=== PATIENT | female | born 1945 | race Caucasian/White ===

== ENCOUNTER 2023-09-28 08:37 | Outpatient (CLI) | payer MEDICARE, SELFPAY ==
--- NOTE | ~2023-09-28 | MM_ITS ---
EXAMINATION: MM screening rodrigo BI w yvonne HISTORY: Screening TECHNIQUE: Craniocaudal and mediolateral oblique 3-D tomosynthesis images were obtained and synthetic 2-D images were generated. CAD analysis was submitted and interpreted. COMPARISON: Comparison to multiple prior studies sequentially, with oldest reviewed study dated 12/2015. BREAST PARENCHYMAL COMPOSITION: Not dense: There are scattered areas of fibroglandular density. FINDINGS: The left breast is stable without evidence for malignancy. There is focal asymmetry in the subareolar aspect of the right breast. IMPRESSION: 1. New focal right breast asymmetry, subareolar location. 2. Additional mammographic views and possible breast ultrasound are recommended. BI-RADS Category 0: Incomplete: Needs additional imaging evaluation. Reviewed, dictated and finalized at location A. IMPRESSION: 1. New focal right breast asymmetry, subareolar location. 2. Additional mammographic views and possible breast ultrasound are recommended . BI-RADS Category 0: Incomplete: Needs additional imaging evaluation.
== END 2023-09-28 08:38 | disposition home or self-care (01) ==
PROVIDERS: PCP Family Medicine; Visit Provider Family Medicine
DX: Z12.31 Encounter for screening mammogram for malignant neoplasm of breast (principal); R92.8 Other abnormal and inconclusive findings on diagnostic imaging of breast
CPT/HCPCS: 77063; 77067

== ENCOUNTER 2024-03-15 07:12 | Outpatient (CLI) | payer MEDICARE, SELFPAY ==
--- NOTE | ~2024-03-15 | DEXA_ITS ---
Bone Density Report Name: EMMANUEL VAZQUEZ Age: 78 Sex: Female Ethnicity: White Date of : 1945 Indication: osteopenia; height loss; hysterectomy; Referring Provider: ROSALES, SOM Bone Study: Bone densitometry was performed. Exam Date: March 15, 2024 Accession number: [id number] Bone Density: Region BMD T-score Z-score Classification AP Spine(L1-L4) 1.090 0.4 3.0 Normal Femoral Neck (Left) 0.632 -2.0 0.3 Osteopenia Total Hip (Left) 0.714 -1.9 0.1 Osteopenia Femoral Neck (Right) 0.715 -1.2 1.0 Osteopenia Total Hip (Right) 0.750 -1.6 0.4 Osteopenia Total Hip Mean 0.732 -1.8 0.3 Osteopenia World Health Organization criteria for BMD impression classify patients as: Normal (T-score at or above -1.0), Osteopenia (T-score between -1.0 and -2.5), or Osteoporosis (T-score at or below -2.5). 10-year Fracture Risk(1): Major Osteoporotic Fracture 14% Hip Fracture 3.9% Reported Risk Factors: [place] (), Neck BMD=0.632, BMI=28.7 (1) FRAX(R) Version 3.08. Fracture probability calculated for an untreated patient. Fracture probability may be lower if the patient has received treatment. Previous Exams: Region Exam Age BMD T-score BMD Change BMD Change Date g/cm2 vs Baseline vs Previous Total Hip(Left) 03/15/2024 78 0.714 -1.9 0.006 (0.8%) 0.006 (0.8%) 07/17/2015 69 0.708 -1.9 Total Hip(Right) 03/15/2024 78 0.750 -1.6 0.010 (1.4%) 0.010 (1.4%) 07/17/2015 69 0.740 -1.7 *Denotes significance at 95% confidence level, LSC for Total Hip = 0.027 g/cm2 Clinical Information Provided by Patient: Has used the following medications: Vitamin D, Calcium Has the following medical conditions: Hysterectomy Patient maximum height was 64 Drinks caffeinated beverages Onset of menses at age 10.5 Number of children 2 Impression: The patient has low bone mass, based on the Left Femoral Neck T-score. The patient has an estimated ten-year risk of hip fracture of 3.9% and an estimated ten-year risk of major fracture of 14%, based on the WHO FRAX algorithm. No significant bone loss was observed. Discussion: BONE DENSITY IS LOW AT ONE OR MORE SKELETAL SITES. THE PATIENT'S BMD AND CLINICAL RISK FACTORS CONTRIBUTE TO THIS PATIENT'S INCREASED RISK OF FRACTURE. This patient's lowest T-score is low at one or more skeletal sites. It meets the World Health Organization's (WHO) criteria for ?low bone mass? (T-score between -1.0 and -2.5). The patient's 10-year
== END 2024-03-15 07:13 | disposition home or self-care (01) ==
LOC: ANHIMG 07:14
PROVIDERS: PCP Nurse Practitioner Family; Visit Provider Family Medicine
DX: Z78.0 Asymptomatic menopausal state (principal); M85.852 Other specified disorders of bone density and structure, left thigh; M85.851 Other specified disorders of bone density and structure, right thigh
CPT/HCPCS: 77080

== ENCOUNTER 2024-11-25 11:00 | Outpatient (CLI) | payer MEDICARE, SELFPAY ==
--- NOTE | ~2024-11-25 | MM_ITS ---
EXAMINATION: MM screening rodrigo BI w yvonne HISTORY: Screening TECHNIQUE: Craniocaudal and mediolateral oblique 3-D tomosynthesis images were obtained and synthetic 2-D images were generated. CAD analysis was submitted and interpreted. COMPARISON: Comparison to multiple prior studies sequentially, with oldest reviewed study dated 12/2015. BREAST PARENCHYMAL COMPOSITION: Not dense: There are scattered areas of fibroglandular density. FINDINGS: There is no evidence of suspicious mass, calcification, or architectural distortion to sugg est malignancy in either breast. There has been no suspicious interval change. IMPRESSION: 1. No mammographic evidence of malignancy. 2. Recommend routine screening mammography in one year. BI-RADS Category 1: Negative Reviewed, dictated and finalized at location B.
--- OUTSIDE RECORDS SUMMARY | 2024-11-25 11:05 | XMS_ITS | Data Portability ---
Author Organization [facility], Main Office Address [address] [place] [address] Assessment Encounter Date Assessment Date Assessment LastModified by Organization Details LastModified Time 03/01/2024 03/01/2024 I have reconciled the patient's medications post their discharge from inpatient facility. Not available 03/01/2024 14:22:26 Plan of Treatment Reminders Order Date Submit Date Provider Last Modified By Organization Details Last Modified Time Details Appointments None recorded. Lab drug of abuse panel, urine [email or web address] [place] [address] (Lab), [address] [place], [address], 4 15:04:59 lipid panel, serum 2022 023 [facility] (Lab), [address] [place], [address], 3 20:54:24 hepatic function panel, serum 2022 023 [facility] (Lab), [address] [place], [address], 3 20:54:29 vitamin D, 25-hydroxy, total, serum 2022 023 [facility] (Lab), [address] [place], [address], 3 01:16:07 CBC w/ auto diff 2022 023 [facility] (Lab), [address] [place], [address], 3 18:55:16 BMP, serum or plasma 2022 023 [facility] (Lab), [address] [place], [address], 3 20:54:34 Referral None recorded. Procedures None recorded. Surgeries None recorded. Imaging DEXA - *Please call pt to schedule* [address] ([facility]), [address] [place], [address], 4 08:52:41 MAMMO, screening, digital, bilateral [address], [address], [place], [address], 4 10:31:21 DEXA [address], [address], [place], [address], 3 16:29:45 Medication Orders nitroglycer in 0.4 mg sublingual tablet 2023 024 [facility] #[id number], [address], [place], [address], 4 14:27:59 carvedilol 25 mg tablet 2023 024 [facility] #[id number], [address], [place], [address], 4 10:43:45 alprazolam 0.5 mg tablet 2023 024 [facility], [address] [facility], [place], [address], 4 14:13:12 polyethylen e glycol 3350 17 gram/dose oral powder 2022 023 [facility], [address] [facility] [place], [address], 10:57:15 Patient TargetsNo targets recorded. Patient Instructions Encounter Date Encounter Id Patient Instructions Last Modified By Organization Details Last Modified Time 05/12/2023 [id number] dementia rating scale-2* [email or web address] Not available 05/12/2023 18:07:18 multi-dimensiona l health assessment questionnaire* Not available 05/12/2023 18:07:22 Personalized Hea lt Plan and Screening Recommendations Advance Directives - Do you have one? Advance Directives - Do we have your advance directive on file in your health record? Primary Prevention/Interven tion (prevents or decreases the chance of common diseases from occurring) Smoking Risk: Alcohol Misuse Screening: Weight: Physical activity: Nutrition: Fall Risk (screened today): Low Vaccines Pneumococcal: Ordered Recommended today Recommended today, but you have declined No further needed Influenza: Chronic Disease Risks Stroke: I have no recommendations Act ronak diagnosis, Continue current treatment plan Heart Attack: I have no recommendations Act ronak diagnosis, Continue current treatment plan Clogging of the Arteries: I have no recommendations Act ronak diagnosis, Continue current treatment plan Diabetes: Active diagnosis, Continue current treatment plan Secondary Prevention/Interven tion (detects treatable diseases before they may cause symptoms, disability, or ) Breast Cancer Screening with mammogram: Your next mammogram: Ordered Cervical/Uterine/Ov ravin Cancer Screening: No screening necessary Osteoporosis Screening: Your next DEXA in: Ordered Date Screening Last Performed: Colon Cancer Screening: No screening necessary Date Screening Last Performed: Eye Disease Screening: Dementia Risk: Depression Screening: Active diagnosis, Continue current treatment plan [email or web address] Not available 05/12/2023 10:59:43 03/01/2024 [id number] Thank you for yo ur visit to our office today. We would like to request that you reach out to your referring or previous provider and request that they send us a Summary of Care in electronic form, so that we may have it on file in your medical record. At your visit, we had the medical records we needed to provide you with the best possible care; however, for insurance purposes, an electronic Summary of Care is beneficial. Thank you for your assistance in obtaining this information and we look forward to providing continued care to you. Please review your medication list from the Summary of Care for this visit. If there are any differences from what you are currently taking at home, please call us to discuss. Not available 03/01/2024 14:22:26 Homebound Status : {{Patient has an inability to leave the home without a taxing effort and assistance from another person Does not meet homebound status}} Required Home Health Services: {{none group home, physical therapy, occupational therapy group home, physical therapy group home}} Durable Medical Equipment needed: {{cane walker walke r with seat manual wheelchair bedside commode oxygen}} Billing Guidelines CPT code 03806- Transitional Care Management services with moderate medical decision complexity (wvfr-px-vwgb visit within 14 days of discharge). CPT code 53735- Transitional Care Management services with high medical decision complexity (qnyb-ry-pbmj visit within 7 days of discharge). Not available 03/01/2024 14:22:26 Reason for Referral None Reported. Results Created Date Observation Date Name Description Value Unit Range Abnormal Flag Note LastModifiedBy Organization Detail LastModifiedTime 05/11/2005/11/2022 VITAM IN D 25-HY DROXY vd25oh 66.6 NG/mL 30-100 Vitam in D Statu s: Defic ient: <20 ng/mL Insuf ficie nt: 20-29 ng/mL Suffi cient : 30-10 0 ng/mL Not Available [facility] (Lab) [address] [place], [address], 05/11/2022 21:19:26 05/11/2005/11/2022 HEPAT IC/LI HOPE PANEL alkaline phosphatase 92 U/L 38-126 Not Available [facility] (Lab) [address] [place], [address], 05/11/2022 20:53:03 05/11/2005/11/2022 HEPAT IC/LI HOPE PANEL alanine aminotransfe rase 20 U/L 0-35 Not Available [facility] (Lab) [address] [place], [address], 05/11/2022 20:53:03 05/11/20 22 05/11/2022 HEPAT IC/LI HOPE PANEL aspartate aminotransfe rase 28 U/L 15-37 Not Available [facility] (Lab) [address] [place], [address], 05/11/2022 20:53:03 05/11/20 22 05/11/2022 HEPAT IC/LI HOPE PANEL bilirubin, total 0.70 mg/dL 0.20-1 .30 Not Available [facility] (Lab) [address] [place], [address], 05/11/2022 20:53:03 05/11/20 22 05/11/2022 HEPAT IC/LI HOPE PANEL bilirubin, conjugated (direct) 0.00 mg/dL 0.00-0 .30 Not Available [facility] (Lab) [address] [place], [address], 05/11/2022 20:53:03 05/11/20 22 05/11/2022 HEPAT IC/LI HOPE PANEL biliurubin,u ncong. (indirect) 0.60 mg/dL 0.00-1 .1 Not Available [facility] (Lab) [address] [place], [address], 05/11/2022 20:53:03 05/11/20 22 05/11/2022 HEPAT IC/LI HOPE PANEL total protein 7.3 g/dL 6.3-8. 2 Not Available [facility] (Lab) [address] [place], [address], 05/11/2022 20:53:03 05/11/20 22 05/11/2022 HEPAT IC/LI HOPE PANEL albumin 4.4 g/dL 3.0-4. 4 Not Available [facility] (Lab) [address] [place], [address], 05/11/2022 20:53:03 05/11/2005/11/2022 HEPAT IC/LI HOPE PANEL globulin 2.9 g/dL 2.6-4. 2 Not Available [facility] (Lab) [address] [place], [address], 05/11/2022 20:53:03 05/11/20 22 05/11/2022 HEPAT IC/LI HOPE PANEL A/G ratio 1.5 ratio 1.0-2. 0 Not Available [facility] (Lab) [address] [place], [address], 05/11/2022 20:53:03 05/11/20 22 05/11/2022 LIPID PANEL cholesterol 178 mg/dL 140-19 9 NIH YVETTE NSUS RECOM MENDA TION FOR RUPA STERO L: ADULT CHILD LOW RISK: <200 <170 BORDE RLINE : <200- 239 ----- HIGH RISK: >240 >200 Not Available [facility] (Lab) [address] [place], [address], 05/11/2022 20:52:15 05/11/20 22 05/11/2022 LIPID PANEL triglyceride s 153 mg/dL 0-150 high NIH YVETTE NSUS REPOR T RECOM MENDA TION FOR TRIGL YCERI KYLAH: ADULT CHILD LOW RISK: <150 ----- BODER LINE: 150-1 99 ----- HIGH RISK: >200 ----- Not Available [facility] (Lab) [address] [place], [address], 05/11/2022 20:52:15 05/11/2005/11/2022 LIPID PANEL HDL cholesterol 60 mg/dL 40- Not Available [facility] (Lab) [address] [place], [address], 05/11/2022 20:52:15 10/31/20 22 05/11/2022 LIPID PANEL LDL cholesterol, calculated 87 mg/dL 0-130 NIH YVETTE NSUS REPOR T RECOM MENDA TIONS FOR LDL: ADULT CHILD LOW RISK <130 <110 (OPTI MAL LDL) <100 ----- BORDE RLINE : 130-1 59 ----- HIGH RISK: >160 >130 A TRIGL YCERI DE RESUL T >400 INVAL IDATE S THE CALCU LATIO N FOR LDL FRACT IONAT ION - THE LDL RESUL T WILL NOT BE REPOR LANCE. Not Available [facility] (Lab) [address] [place], [address], 05/11/2022 20:52:15 05/11/2005/11/2022 BASIC METAB OLIC PANEL sodium 139 mmol/ L 137-14 5 Not Available [facility] (Lab) [address] [place], [address], 05/11/2022 20:52:13 05/11/2005/11/2022 BASIC METAB OLIC PANEL potassium 4.2 mmol/ L 3.5-5. 1 Not Available [facility] (Lab) [address] [place], [address], 05/11/2022 20:52:13 05/11/20 22 05/11/2022 BASIC METAB OLIC PANEL chloride 101 mmol/ L 98-107 Not Available [facility] (Lab) [address] [place], [address], 05/11/2022 20:52:13 05/11/2005/11/2022 BASIC METAB OLIC PANEL carbon dioxide 29 mmol/ L 22-30 Not Available [facility] (Lab) [address] [place], [address], 05/11/2022 20:52:13 05/11/20 22 05/11/2022 BASIC METAB OLIC PANEL anion gap 13.2 mmol/ L 14-22 low Not Available [facility] (Lab) [address] [place], [address], 05/11/2022 20:52:13 05/11/20 22 05/11/2022 BASIC METAB OLIC PANEL glucose 101 mg/dL 70-99 high Not Available [facility] (Lab) [address] [place], [address], 05/11/2022 20:52:13 05/11/20 22 05/11/2022 BASIC METAB OLIC PANEL BUN 17 mg/dL 8-19 Not Available [facility] (Lab) [address] [place], [address], 05/11/2022 20:52:13 05/11/20 22 05/11/2022 BASIC METAB OLIC PANEL creatinine 0.71 mg/dL 0.66-1 .25 Not Available [facility] (Lab) [address] [place], [address], 05/11/2022 20:52:13 05/11/20 22 05/11/2022 BASIC METAB OLIC PANEL GFR >60 Refer ence Range : [place] [facility] GFR Healt hy Adult : >60 mL/mi n/1.7 3 m2 Chron ic Kidne y Disea se: 15-60 mL/mi n/1.7 3 m2 Kidne y Failu re: <15/m L/min /1.73 m2 www.n iddk. nih.g ov The MDRD study equat ion has not been valid ated in child yossi <18 years of age; pregn ant women ; the elder ly >85 years of age; or in some racia l or ethni c subgr oups, such as Hisnm nics. Outsi de the valid ated lupe eters , estim ated GFR is less accur ate, requi ring clini adalberto judgm ent on a case- by-ca se basis . Clini adalberto inter preta tion for other races and ages must be made by the clini teddy. The MDRD study equat ion has not been valid ated for the evalu ation of serum creat inine relat ed to nutri bhavik l statu s or medic ation usage . For perso ns <18 years of age, a pedia tric GFR calcu lator is avail able on the F websi te: https ://eamon parsons.o yolanda/filiberto ofess ional s/kdo qi/gf r_cal culat or Not Available [facility] (Lab) [address] [place], [address], 05/11/2022 20:52:13 05/11/2005/11/2022 BASIC METAB OLIC PANEL calcium 9.6 mg/dL 8.4-10 .2 Not Available [facility] (Lab) [address] [place], [address], 05/11/2022 20:52:13 05/11/20 22 05/11/2022 CBC/C OMPLE TE BLD COUNT W/DIF F white blood cells 6.3 x10'3 /uL 4.2-10 .8 Not Available [facility] (Lab) [address] [place], [address], 05/11/2022 19:17:40 05/11/20 22 05/11/2022 CBC/C OMPLE TE BLD COUNT W/DIF F red blood cells 4.24 x10'6 /uL 3.80-5 .20 Not Available [facility] (Lab) [address] [place], [address], 05/11/2022 19:17:40 05/11/20 22 05/11/2022 CBC/C OMPLE TE BLD COUNT W/DIF F hemoglobin 13.3 g/dL 12.0-1 5.6 Not Available [facility] (Lab) [address] [place], [address], 05/11/2022 19:17:40 05/11/20 22 05/11/2022 CBC/C OMPLE TE BLD COUNT W/DIF F hematocrit 40.3 % 35.7-4 5.7 Not Available [facility] (Lab) [address] [place], [address], 05/11/2022 19:17:40 05/11/2005/11/2022 CBC/C OMPLE TE BLD COUNT W/DIF F mean red cell volume 95.0 fL 82.0-9 9.0 Not Available [facility] (Lab) [address] [place], [address], 05/11/2022 19:17:40 05/11/20 22 05/11/2022 CBC/C OMPLE TE BLD COUNT W/DIF F mean red cell hemoglobin 31.4 pg 27.0-3 3.0 Not Available [facility] (Lab) [address] [place], [address], 05/11/2022 19:17:40 05/11/20 22 05/11/2022 CBC/C OMPLE TE BLD COUNT W/DIF F mean RBC HGB concentratio n 33.0 g/dL 31.0-3 6.0 Not Available [facility] (Lab) [address] [place], [address], 05/11/2022 19:17:40 05/11/20 22 05/11/2022 CBC/C OMPLE TE BLD COUNT W/DIF F red cell distribution width 13.1 % 11.8-1 5.5 Not Available [facility] (Lab) [address] [place], [address], 05/11/2022 19:17:40 05/11/20 22 05/11/2022 CBC/C OMPLE TE BLD COUNT W/DIF F platelets 244 x10'3 /uL 150-40 0 Not Available [facility] (Lab) [address] [place], [address], 05/11/2022 19:17:40 05/11/20 22 05/11/2022 CBC/C OMPLE TE BLD COUNT W/DIF F mean platelet volume 9.7 fL 9.0-12 .4 Not Available [facility] (Lab) [address] [place], [address], 05/11/2022 19:17:40 05/11/2005/11/2022 CBC/C OMPLE TE BLD COUNT W/DIF F neutrophils 51.0 % 39.0-7 2.0 Not Available [facility] (Lab) [address] [place], [address], 05/11/2022 19:17:40 05/11/20 22 05/11/2022 CBC/C OMPLE TE BLD COUNT W/DIF F lymphocytes 34.7 % 16.0-4 7.0 Not Available [facility] (Lab) [address] [place], [address], 05/11/2022 19:17:40 05/11/20 22 05/11/2022 CBC/C OMPLE TE BLD COUNT W/DIF F monocytes 10.0 % 5.0-12 .0 Not Available [facility] (Lab) [address] [place], [address], 05/11/2022 19:17:40 05/11/20 22 05/11/2022 CBC/C OMPLE TE BLD COUNT W/DIF F eosinophils 3.3 % 1.0-7. 0 Not Available [facility] (Lab) [address] [place], [address], 05/11/2022 19:17:40 05/11/20 22 05/11/2022 CBC/C OMPLE TE BLD COUNT W/DIF F basophils 0.8 % 0.0-2. 0 Not Available [facility] (Lab) [address] [place], [address], 05/11/2022 19:17:40 05/11/20 22 05/11/2022 CBC/C OMPLE TE BLD COUNT W/DIF F immature granulocytes 0.2 % 0.00-0 .50 Not Available [facility] (Lab) [address] [place], [address], 05/11/2022 19:17:40 05/11/2005/11/2022 CBC/C OMPLE TE BLD COUNT W/DIF F neutrophils, absolute count 3.22 x10'3 /uL 1.5-8. 0 Not Available [facility] (Lab) [address] [place], [address], 05/11/2022 19:17:40 05/11/20 22 05/11/2022 CBC/C OMPLE TE BLD COUNT W/DIF F lymphocytes, absolute count 2.19 x10'3 /uL 1.07-3 .43 Not Available [facility] (Lab) [address] [place], [address], 05/11/2022 19:17:40 05/11/20 22 05/11/2022 CBC/C OMPLE TE BLD COUNT W/DIF F monocytes, absolute count 0.63 x10'3 /uL 0.29-0 .99 Not Available [facility] (Lab) [address] [place], [address], 05/11/2022 19:17:40 05/11/20 22 05/11/2022 CBC/C OMPLE TE BLD COUNT W/DIF F eosinophils, absolute count 0.21 x10'3 /uL 0.02-0 .53 Not Available [facility] (Lab) [address] [place], [address], 05/11/2022 19:17:40 05/11/20 22 05/11/2022 CBC/C OMPLE TE BLD COUNT W/DIF F basophils, absolute count 0.05 x10'3 /uL 0.01-0 .08 Not Available [facility] (Lab) [address] [place], [address], 05/11/2022 19:17:40 10/3105/11/2022 CBC/C OMPLE TE BLD COUNT W/DIF F immature granulocytes ,absolute 0.01 x10'3 /uL 0.00-0 .05 Not Available [facility] (Lab) [address] [place], [address], 05/11/2022 19:17:40 05/11/20 22 05/11/2022 CBC/C OMPLE TE BLD COUNT W/DIF F nucleated red blood cells 0.0 % -0 Not Available [facility] (Lab) [address] [facility] [place], [address], 05/11/2022 19:17:40 05/11/2005/11/2022 CBC/C OMPLE TE BLD COUNT W/DIF F NRBC# 0.00 x10'3 /uL Not Available [facility] (Lab) [address] [place], [address], 05/11/2022 19:17:40 05/12/20 23 05/12/2023 CBC/C OMPLE TE BLD COUNT W/DIF F white blood cells 6.0 x10'3 /uL 4.2-10 .8 Not Available [facility] (Lab) [address] [place], [address], 05/12/2023 18:55:16 05/12/20 23 05/12/2023 CBC/C OMPLE TE BLD COUNT W/DIF F red blood cells 4.49 x10'6 /uL 3.80-5 .20 Not Available [facility] (Lab) [address] [place], [address], 05/12/2023 18:55:16 05/12/20 23 05/12/2023 CBC/C OMPLE TE BLD COUNT W/DIF F hemoglobin 14.0 g/dL 12.0-1 5.6 Not Available [facility] (Lab) [address] [place], [address], 05/12/2023 18:55:16 05/12/20 23 05/12/2023 CBC/C OMPLE TE BLD COUNT W/DIF F hematocrit 42.4 % 35.7-4 5.7 Not Available [facility] (Lab) [address] [place], [address], 05/12/2023 18:55:16 05/12/20 23 05/12/2023 CBC/C OMPLE TE BLD COUNT W/DIF F mean red cell volume 94.4 fL 82.0-9 9.0 Not Available [facility] (Lab) [address] [place], [address], 05/12/2023 18:55:16 05/12/20 23 05/12/2023 CBC/C OMPLE TE BLD COUNT W/DIF F mean red cell hemoglobin 31.2 pg 27.0-3 3.0 Not Available [facility] (Lab) [address] [place], [address], 05/12/2023 18:55:16 05/12/20 23 05/12/2023 CBC/C OMPLE TE BLD COUNT W/DIF F mean RBC HGB concentratio n 33.0 g/dL 31.0-3 6.0 Not Available [facility] (Lab) [address] [place], [address], 05/12/2023 18:55:16 05/12/20 23 05/12/2023 CBC/C OMPLE TE BLD COUNT W/DIF F red cell distribution width 12.7 % 11.8-1 5.5 Not Available [facility] (Lab) [address] [place], [address], 05/12/2023 18:55:16 05/12/20 23 05/12/2023 CBC/C OMPLE TE BLD COUNT W/DIF F platelets 263 x10'3 /uL 150-40 0 Not Available [facility] (Lab) [address] [place], [address], 05/12/2023 18:55:16 05/12/20 23 05/12/2023 CBC/C OMPLE TE BLD COUNT W/DIF F mean platelet volume 10.1 fL 9.0-12 .4 Not Available [facility] (Lab) [address] [facility] [place], [address], 05/12/2023 18:55:16 05/12/20 23 05/12/2023 CBC/C OMPLE TE BLD COUNT W/DIF F neutrophils 55.7 % 39.0-7 2.0 Not Available [facility] (Lab) [address] [place], [address], 05/12/2023 18:55:16 05/12/20 23 05/12/2023 CBC/C OMPLE TE BLD COUNT W/DIF F lymphocytes 30.6 % 16.0-4 7.0 Not Available [facility] (Lab) [address] [place], [address], 05/12/2023 18:55:16 05/12/2005/12/2023 CBC/C OMPLE TE BLD COUNT W/DIF F monocytes 10.1 % 5.0-12 .0 Not Available [facility] (Lab) [address] [place], [address], 05/12/2023 18:55:16 05/12/2005/12/2023 CBC/C OMPLE TE BLD COUNT W/DIF F eosinophils 2.7 % 1.0-7. 0 Not Available [facility] (Lab) [address] [place], [address], 05/12/2023 18:55:16 05/12/20 23 05/12/2023 CBC/C OMPLE TE BLD COUNT W/DIF F basophils 0.7 % 0.0-2. 0 Not Available [facility] (Lab) [address] [place], [address], 05/12/2023 18:55:16 05/12/20 23 05/12/2023 CBC/C OMPLE TE BLD COUNT W/DIF F immature granulocytes 0.2 % 0.00-0 .50 Not Available [facility] (Lab) [address] [place], [address], 05/12/2023 18:55:16 05/12/20 23 05/12/2023 CBC/C OMPLE TE BLD COUNT W/DIF F neutrophils, absolute count 3.32 x10'3 /uL 1.5-8. 0 Not Available [facility] (Lab) [address] [place], [address], 05/12/2023 18:55:16 05/12/20 23 05/12/2023 CBC/C OMPLE TE BLD COUNT W/DIF F lymphocytes, absolute count 1.82 x10'3 /uL 1.07-3 .43 Not Available [facility] (Lab) [address] [place], [address], 05/12/2023 18:55:16 05/12/2005/12/2023 CBC/C OMPLE TE BLD COUNT W/DIF F monocytes, absolute count 0.60 x10'3 /uL 0.29-0 .99 Not Available [facility] (Lab) [address] [place], [address], 05/12/2023 18:55:16 05/12/2005/12/2023 CBC/C OMPLE TE BLD COUNT W/DIF F eosinophils, absolute count 0.16 x10'3 /uL 0.02-0 .53 Not Available [facility] (Lab) [address] [place], [address], 05/12/2023 18:55:16 05/12/20 23 05/12/2023 CBC/C OMPLE TE BLD COUNT W/DIF F basophils, absolute count 0.04 x10'3 /uL 0.01-0 .08 Not Available [facility] (Lab) [address] [place], [address], 05/12/2023 18:55:16 05/12/2005/12/2023 CBC/C OMPLE TE BLD COUNT W/DIF F immature granulocytes ,absolute 0.01 x10'3 /uL 0.00-0 .05 Not Available [facility] (Lab) [address] [place], [address], 05/12/2023 18:55:16 05/12/20 23 05/12/2023 CBC/C OMPLE TE BLD COUNT W/DIF F nucleated red blood cells 0.0 % -0 Not Available [facility] (Lab) [address] [place], [address], 05/12/2023 18:55:16 05/12/2005/12/2023 CBC/C OMPLE TE BLD COUNT W/DIF F NRBC# 0.00 x10'3 /uL Not Available [facility] (Lab) [address] [place], [address], 05/12/2023 18:55:16 05/12/2005/12/2023 VITAM IN D 25-HY DROXY vd25oh 72.3 NG/mL 30-100 Vitam in D Statu s: Defic ient: <20 ng/mL Insuf ficie nt: 20-29 ng/mL Suffi cient : 30-10 0 ng/mL Not Available [facility] (Lab) [address] [place], [address], 05/12/2023 20:53:45 05/12/2005/12/2023 LIPID PANEL cholesterol 177 mg/dL 140-19 9 NIH YVETTE NSUS RECOM MENDA TION FOR RUPA STERO L: ADULT CHILD LOW RISK: <200 <170 BORDE RLINE : <200- 239 ----- HIGH RISK: >240 >200 Not Available [facility] (Lab) [address] [place], [address], 05/12/2023 20:54:24 05/12/20 23 05/12/2023 LIPID PANEL triglyceride s 155 mg/dL 0-150 high NIH YVETTE NSUS REPOR T RECOM MENDA TION FOR TRIGL YCERI KYLAH: ADULT CHILD LOW RISK: <150 ----- BODER LINE: 150-1 99 ----- HIGH RISK: >200 ----- Not Available [facility] (Lab) [address] [place], [address], 05/12/2023 20:54:24 05/12/20 23 05/12/2023 LIPID PANEL HDL cholesterol 54 mg/dL 40- Not Available [facility] (Lab) [address] [place], [address], 05/12/2023 20:54:24 05/12/20 23 05/12/2023 LIPID PANEL LDL cholesterol, calculated 92 mg/dL 0-130 NIH YVETTE NSUS REPOR T RECOM MENDA TIONS FOR LDL: ADULT CHILD LOW RISK <130 <110 (OPTI MAL LDL) <100 ----- HARPREET RLINE : 130-1 59 ----- HIGH RISK: >160 >130 A TRIGL YCERI DE RESUL T >400 INVAL IDATE S THE CALCU LATIO N FOR LDL FRACT IONAT ION - THE LDL RESUL T WILL NOT BE REPOR LANCE. Not Available [facility] (Lab) [address] [place], [address], 05/12/2023 20:54:24 05/12/20 23 05/12/2023 HEPAT IC/LI HOPE PANEL alkaline phosphatase 86 U/L 38-126 Not Available [facility] (Lab) [address] [place], [address], 05/12/2023 20:54:29 05/12/20 23 05/12/2023 HEPAT IC/LI HOPE PANEL alanine aminotransfe rase 22 U/L 0-35 Not Available [facility] (Lab) [address] [place], [address], 05/12/2023 20:54:29 05/12/20 23 05/12/2023 HEPAT IC/LI HOPE PANEL aspartate aminotransfe rase 25 U/L 15-37 Not Available [facility] (Lab) [address] [place], [address], 05/12/2023 20:54:29 05/12/20 23 05/12/2023 HEPAT IC/LI HOPE PANEL bilirubin, total 0.70 mg/dL 0.20-1 .30 Not Available [facility] (Lab) [address] [place], [address], 05/12/2023 20:54:29 05/12/20 23 05/12/2023 HEPAT IC/LI HOPE PANEL bilirubin, conjugated (direct) 0.00 mg/dL 0.00-0 .30 Not Available [facility] (Lab) [address] [place], [address], 05/12/2023 20:54:29 05/12/20 23 05/12/2023 HEPAT IC/LI HOPE PANEL biliurubin,u ncong. (indirect) 0.40 mg/dL 0.00-1 .1 Not Available [facility] (Lab) [address] [place], [address], 05/12/2023 20:54:29 05/12/20 23 05/12/2023 HEPAT IC/LI HOPE PANEL total protein 7.0 g/dL 6.3-8. 2 Not Available [facility] (Lab) [address] [place], [address], 05/12/2023 20:54:29 05/12/20 23 05/12/2023 HEPAT IC/LI HOPE PANEL albumin 4.1 g/dL 3.0-4. 4 Not Available [facility] (Lab) [address] [place], [address], 05/12/2023 20:54:29 05/12/20 23 05/12/2023 HEPAT IC/LI HOPE PANEL globulin 2.9 g/dL 2.6-4. 2 Not Available [facility] (Lab) [address] [place], [address], 05/12/2023 20:54:29 05/12/20 23 05/12/2023 HEPAT IC/LI HOPE PANEL A/G ratio 1.4 ratio 1.0-2. 0 Not Available [facility] (Lab) [address] [place], [address], 05/12/2023 20:54:29 05/12/20 23 05/12/2023 BASIC METAB OLIC PANEL sodium 134 mmol/ L 137-14 5 low Not Available [facility] (Lab) [address] [place], [address], 05/12/2023 20:54:34 05/12/20 23 05/12/2023 BASIC METAB OLIC PANEL potassium 4.5 mmol/ L 3.5-5. 1 Not Available [facility] (Lab) [address] [place], [address], 05/12/2023 20:54:34 05/12/20 23 05/12/2023 BASIC METAB OLIC PANEL chloride 102 mmol/ L 98-107 Not Available [place] [id number]|2024-11-25 11:05:00|2024-11-25 11:04:00|XMS_ITS|BKG DAEMON|External Medical Summaries|[id number]|" CONTINUITY OF CARE DOCUMENT Created on: November 25, 2024 Luz Whittaker : 1945 Sex: Female Author Name isael kirkland Address Unknown Organization [facility] Address [address] [place] [address] Phone [phone] Care Team Providers Care Magnetic Doctor Name Role Phone Del Nieto MD Unavailable [phone] ROSALES SOFIA KENDAL Felton Unavailable [phone] PROBLEMS Condition Status Date Provider Notes ABNORMAL EKG-10/16 ECHO EF 65 active ? Del Nieto MD CAD-STENT 12/17 TAXUS RCA, IS R RCA stent, 2016 active Del Nieto MD HTN--echo ef nl, 05/2023 active Del rudolph MD Hypercholesterolemia completed - Del Nieto MD SMOKER QUIT active Del Nieto MD CAD-05/20 NUC NL EF 41 completed - Del rudolph MD HTN ESSENTIAL completed - Del Nieto MD Shortness of breath active Del Nieto MD Chest pain-type to be determined completed - Del Nieto MD Arthritis active Del Nieto MD Back pain active Del Nieto MD Hyperlipidemia active Del Nieto MD Cardiology examination active Jd Steiner ENCOUNTERS Date Type Provider Location Encounter Diag nosis - In-person encounter Office Visit Del Nieto MD [facility] Cardiology examination - In-person encounter Office Visit Del Nieto MD [facility] - In-person encounter Office Visit Del Nieto MD [facility] CAD-STENT 12/17 TAXUS RCA, ISR RCA stent, 2016HTN--echo ef nl, 05/2023HypercholesterolemiaHyperli pidemia - In-person encounter Office Visit Del Nieto MD [facility] - In-person encounter Office Visit Del Nieto MD [facility] Back pain - In-person encounter Office Visit Del Nieto MD [facility] Arthritis - In-person encounter Office Visit Del Nieto MD [facility] HTN--echo ef nl, 05/2023 - In-person encounter Office Visit Del Nieto MD [facility] - In-person encounter Office Visit Del Nieto MD [facility] - In-person encounter Office Visit Del Nieto MD [facility] - In-person encounter Office Visit Del Nieto MD [facility] CAD-STENT 12/17 TAXUS RCA, ISR RCA stent, 2015Chest pain-type to be determined - In-person encounter Office Visit Del Nieto MD [facility] - In-person encounter Office Visit Del Nieto MD [facility] HTN ESSENTIAL - In-person encounter Office Visit Del Nieto MD [facility] - In-person encounter Office Visit Del Nieto MD [facility] - In-person encounter Office Visit Del Nieto MD [facility] - In-person encounter Office Visit Del Nieto MD [facility] CAD-STENT 12/17 TAXUS RCA, ISR RCA stent, 2015 - In-person encounter Office Visit Del Nieto MD [facility] CAD-STENT 12/17 TAXUS RCA, ISR RCA stent, 2015CAD-05/20 NUC NL EF 41 - In-person encounter Office Visit Del Nieto MD [facility] HypercholesterolemiaShortness of breath - In-person encounter Office Visit Del Nieto MD [facility] - In-person encounter Office Visit Del Nieto MD [facility] - In-person encounter Office Visit Del Nieto MD [facility] - In-person encounter Office Visit Del Nieto MD [facility] ABNORMAL EKG-10/16 ECHO EF 65 - In-person encounter Office Visit Del Nieto MD [facility] Hypercholesterolemia - In-person encounter Office Visit Del Nieto MD [facility] CAD-STENT 12/17 TAXUS RCA, ISR RCA stent, 2015HTN--echo ef nl, 05/2023HypercholesterolemiaSMOKER QUIT VITAL SIGNS Date Observation Value Provider Body Mass Index (Ratio) 25.85 kg/m2 Elmer Nieto MD oxygen saturation, oximetry 96 % Jennifer De Leon pulse rate 62 /min Jennifer Saunder s blood pressure, diastolic 80 mm[Hg] Ti fareedny De Leon blood pressure, systolic 152 mm[Hg] Tif christiane De Leon weight E&M 153 [lb_av] Jennifer Saunder s blood pressure, cuff size regular Ti ffany De Leon height E&M 64.5 [in_i] Jennifer Saunder s Body Mass Index (Ratio) 25.99 kg/m2 Elmer Nieto MD blood pressure, diastolic 76 mm[Hg] Ky you Hart blood pressure, systolic 138 mm[Hg] Fadia jairo Hart oxygen saturation, oximetry 96 % Kyaron Hart pulse rate 63 /min Kyaron Hart blood pressure, cuff size regular Ky you Hart weight E&M 153.8 [lb_av] Kyaron Hart height E&M 64.5 [in_i] Belkys Hart Body Mass Index (Ratio) 27.04 kg/m2 Elmer Nieto MD blood pressure, cuff size regular Ja rret blood pressure, diastolic 84 mm[Hg] Ja rret blood pressure, systolic 152 mm[Hg] Jar ret pulse rate 71 /min Darius respiratory rate E&M 14 /min Darius oxygen saturation, oximetry 97 % Darius weight E&M 160 [lb_av] Darius y height E&M 64.5 [in_i] Darius y Body Mass Index (Ratio) 27.71 kg/m2 Elmer Nieto MD blood pressure, diastolic 76 mm[Hg] Li nkLogic blood pressure, systolic 134 mm[Hg] Felicity kLog blood pressure, cuff size regular Ja rret blood pressure, diastolic 76 mm[Hg] Ja rret blood pressure, systolic 134 mm[Hg] Jar ret pulse rate 68 /min Darius respiratory rate E&M 12 /min Darius oxygen saturation, oximetry 97 % Darius weight E&M 164 [lb_av] Darius y height E&M 64.5 [in_i] Darius y Body Mass Index (Ratio) 28.56 kg/m2 Elmer Nieto MD blood pressure, cuff size regular Ke rri Gruenenfelder blood pressure, diastolic 70 mm[Hg] Ke rri Gruenenfelder blood pressure, systolic 142 mm[Hg] Linda Galvezer oxygen saturation, oximetry 94 % Lizette Galvezer respiratory rate E&M 14 /min Lizette duránelder pulse rate 73 /min Lizette Thomas lder weight E&M 169 [lb_av] Lizette Thomas lder height E&M 64.5 [in_i] Lizette Thomas er Body Mass Index (Ratio) 28.73 kg/m2 Elmer Nieto MD blood pressure, diastolic 85 mm[Hg] St ghada Estes blood pressure, systolic 158 mm[Hg] Sta maycol Estes oxygen saturation, oximetry 95 % Seramaycol Estes pulse rate 69 /min Sera Franklyn respiratory rate E&M 16 /min Seramaycol steiner weight E&M 170 [lb_av] Sera Franklyn height E&M 64.5 [in_i] Sera Franklyn Body Mass Index (Ratio) 28.73 kg/m2 Elmer Nieto MD blood pressure, diastolic 66 mm[Hg] Sa ra Jimenez blood pressure, systolic 132 mm[Hg] Dean a Jimenez oxygen saturation, oximetry 98 % Wendi Jimenez respiratory rate E&M 18 /min Wendi Si ms pulse rate 68 /min Wendi Jimenez blood pressure, cuff size regular Sa ra Jimenez weight E&M 170 [lb_av] Wendi Jimenez height E&M 64.5 [in_i] Wendi Jimenez Body Mass Index (Ratio) 28.39 kg/m2 Elmer Nieto MD blood pressure, diastolic 80 mm[Hg] Shira lockLogyasmin blood pressure, systolic 136 mm[Hg] Felicity Grahamogyasmin blood pressure, cuff size regular Cy derrell Blanco blood pressure, diastolic 80 mm[Hg] Cy derrell Blanco blood pressure, systolic 136 mm[Hg] Ember miguelangel Blanco pulse rate 77 /min Sharondamiguelangel Augustine l respiratory rate E&M 16 /min Sharonda Blanco oxygen saturation, oximetry 94 % Sharonda Blanco weight E&M 168 [lb_av] Sharondamiguelangel Shahbel l height E&M 64.5 [in_i] Sharonda Shahbel l Body Mass Index (Ratio) 28.05 kg/m2 Elmer Nieto MD blood pressure, cuff size regular Ke rri Christianuenenfjohanne blood pressure, diastolic 72 mm[Hg] Tu rri Christianuenenfelder blood pressure, systolic 132 mm[Hg] Linda Garay oxygen saturation, oximetry 97 % Lizette Garay respiratory rate E&M 16 /min Lizette pearce pulse rate 81 /min Lizette Thomas lder weight E&M 166 [lb_av] Lizette Thomas lder height E&M 64.5 [in_i] Lizette Thomas lder Body Mass Index (Ratio) 28.22 kg/m2 Elmer Nieto MD blood pressure, diastolic 62 mm[Hg] Maycol dove Francis blood pressure, systolic 136 mm[Hg] Ember means Blanco blood pressure, cuff size regular Cy derrell Blanco pulse rate 78 /min Sharonda Augustine l oxygen saturation, oximetry 97 % Sharonda Blanco respiratory rate E&M 16 /min Sharonda Blanco weight E&M 167 [lb_av] Sharonda Campbel l height E&M 64.5 [in_i] Sharonda Campbel l Body Mass Index (Ratio) 29.23 kg/m2 Elmer Nieto MD pulse rate 84 /min [facility] blood pressure, diastolic 75 mm[Hg] To [facility] blood pressure, systolic 149 mm[Hg] [facility] respiratory rate E&M 16 /min [facility] oxygen saturation, oximetry 97 % [facility] weight E&M 173 [lb_av] [facility] height E&M 64.5 [in_i] [facility] Body Mass Index (Ratio) 29.91 kg/m2 Elmer Nieto MD blood pressure, cuff size regular Cy derrell Blanco blood pressure, diastolic 70 mm[Hg] Cy derrell Blanco blood pressure, systolic 130 mm[Hg] Ember miguelangel Blanco oxygen saturation, oximetry 97 % Sharonda Blanco respiratory rate E&M 16 /min Sharonda Blanco pulse rate 71 /min Sharonda Campbel l height E&M 64.5 [in_i] Sharonda Campbel l weight E&M 177 [lb_av] Sharonda Campbel l Body Mass Index (Ratio) 29.40 kg/m2 Elmer Nieto MD weight E&M 174 [lb_av] Sharonad Campbel l blood pressure, cuff size regular Cy derrell Blanco blood pressure, diastolic 64 mm[Hg] Cy derrell Blanco blood pressure, systolic 132 mm[Hg] Ember Blanco oxygen saturation, oximetry 98 % Sharonda Blanco respiratory rate E&M 16 /min Sharonda Blanco pulse rate 64 /min Sharonda Campbel l height E&M 64.5 [in_i] Sharonda felton Body Mass Index (Ratio) 29.23 kg/m2 Elmer Nieto MD blood pressure, resting Yes Ashok carrillo Hoffmann blood pressure, diastolic 68 mm[Hg] Ki andrew Hoffmann blood pressure, systolic 130 mm[Hg] Anna Marie greene Hoffmann oxygen saturation, oximetry 98 % [place] Hoffmann respiratory rate E&M 16 /min Mannie Hoffmann pulse rate 83 /min Mannie Hoffmann weight E&M 173 [lb_av] [place] height E&M 64.5 [in_i] Mannie Hoffmann Body Mass Index (Ratio) 29.06 kg/m2 Elmer Nieto MD blood pressure, cuff size regular Yanet fishman Jameson blood pressure, diastolic 70 mm[Hg] Yanet fishman Jameson blood pressure, systolic 130 mm[Hg] Khurram rodriguez Jameson oxygen saturation, oximetry 99 % Erica Jameson respiratory rate E&M 16 /min Erica Jameson pulse rate 79 /min Erica Jameson weight E&M 172 [lb_av] Erica Jameson height E&M 64.5 [in_i] Erica Trino Body Mass Index (Ratio) 29.74 kg/m2 Elmer Nieto MD blood pressure, cuff size regular Tu rri Tanisha blood pressure, diastolic 88 mm[Hg] Ke rri Tanisha blood pressure, systolic 201 mm[Hg] Linda Garay oxygen saturation, oximetry 96 % Lizette Garay respiratory rate E&M 16 /min Lizette pearce pulse rate 72 /min Lizette Thomas lder weight E&M 176 [lb_av] Lizette Thomas lder height E&M 64.5 [in_i] Lizette [facility] blood pressure, diastolic 80 mm[Hg] Me colon Winkler blood pressure, systolic 164 mm[Hg] Viktoira burciaga Winkler pulse rate 78 /min Kendal Winkler oxygen saturation, oximetry 95 % Kendal Winkler respiratory rate E&M 15 /min Kendal Winkler Body Mass Index (Ratio) 29.23 kg/m2 Magi villarreal Winkler weight E&M 173 [lb_av] Kendal Winkler blood pressure, diastolic 60 mm[Hg] Chance Yatesby blood pressure, systolic 118 mm[Hg] Duyen Yatesby pulse rate 94 /min Vanessa Yatesby oxygen saturation, oximetry 97 % Vanessa Yatesby respiratory rate E&M 18 /min Vanessa Yatesby Body Mass Index (Ratio) 29.57 kg/m2 Jose L Yatesby weight E&M 175 [lb_av] Vanessa Yatesby blood pressure, diastolic 60 mm[Hg] Pily Nelson blood pressure, systolic 122 mm[Hg] Valentina Nelson pulse rate 83 /min Nadya figueroa oxygen saturation, oximetry 98 % Nadya Nelson respiratory rate E&M 16 /min Ary Nelson Body Mass Index (Ratio) 29.57 kg/m2 Maria T Nelson weight E&M 175 [lb_av] Nadya figueroa blood pressure, diastolic 72 mm[Hg] Jimenez blood pressure, systolic 116 mm[Hg] Nick Barber pulse rate 96 /min Alexx Barber oxygen saturation, oximetry 99 % Alexx Barber respiratory rate E&M 16 /min Alexx Villaseñorran weight E&M 162 [lb_av] Alexx Villaseñorran blood pressure, diastolic 71 mm[Hg] Martinezran blood pressure, systolic 110 mm[Hg] Nick babcock Barber pulse rate 95 /min Alexx Villaseñorran oxygen saturation, oximetry 99 % Alexx Villaseñorran respiratory rate E&M 16 /min Nickvalentine Barber weight E&M 168 [lb_av] Denyean Barber blood pressure, diastolic, left arm 80 mm [Hg] Rama Gl[place]ale blood pressure, systolic, left arm 149 mm [Hg] Rama Lizeth blood pressure, diastolic, right arm 85 m m[Hg] Rama [place] blood pressure, systolic, right arm 137 m m[Hg] Rama Lizeth blood pressure, diastolic 80 mm[Hg] Fe leilani [place] blood pressure, systolic 149 mm[Hg] Fel icia Lizeth pulse rate 82 /min Rama [place] oxygen saturation, oximetry 97 % Rama [place] respiratory rate E&M 16 /min Rama Lizeth weight E&M 173 [lb_av] Rama [place] blood pressure, diastolic 71 mm[Hg] Ulises Bermudez RN blood pressure, systolic 142 mm[Hg] Bret Bermudez RN pulse rate 64 /min Bret Bermudez RN oxygen saturation, oximetry 98 % Bret Bermudez RN respiratory rate E&M 16 /min Bret davey RN weight E&M 178 [lb_av] Bret Bermudez RN blood pressure, diastolic 86 mm[Hg] Ulises Bermudez RN blood pressure, systolic 158 mm[Hg] Bret Bermudez RN pulse rate 79 /min Bret Bermudez RN oxygen saturation, oximetry 99 % Bret Bermudez ELI respiratory rate E&M 16 /min Bret Ross naldojusten RN weight E&M 169 [lb_av] Bret Bermudez ELI Body Mass Index (Ratio) 29.85 kg/m2 Elmer Nieto MD height E&M 64.5 [in_i] Del Nieto MD blood pressure, diastolic 69 mm[Hg] Ja ursula Bermudez ELI blood pressure, systolic 128 mm[Hg] Bret Bermudez RN pulse rate 73 /min Bret Bermudez ELI oxygen saturation, oximetry 98 % Bret Gutiérrezjusten BENITEZ respiratory rate E&M 20 /min Bret Ross naldojusten RN weight E&M 176 [lb_av] Bret Bermudez RN blood pressure, diastolic 80 mm[Hg] To conner Nieto MD blood pressure, systolic 176 mm[Hg] Nathan Nieto MD oxygen saturation, oximetry 97 % Del Nieto MD respiratory rate E&M 18 /min Del Nieto MD weight E&M 163 [lb_av] Del Nieto MD ALLERGIES No Known Drug Allergies RESULTS Date Observation Value Provider Reference Range Interpretation Location 9 very low density lipoproteins 43.2 mg/dL [facility] 5.0 - 40.0 High 9 LDL/HDL (low-density lipoprotein/high-d ensity lipoprotein) ratio 1.6 RATIO [facility] - 9 lipoprotein, beta, serum, point, quantitative, calculated 113.8 (?) [facility] 0.0 - 100.0 High 9 HDL cholesterol, serum 72.0 mg/dL [facility] 45.0 - 65.0 High 9 cholesterol, serum 229.0 mg/dL [facility] 0.0 - 200.0 High 9 triglyceride, serum, fasting 216.0 mg/dL [facility] 0.0 - 150.0 High 9 urea nitrogen/creatinin e ratio, serum 25.0 [facility] - 9 Estimated Glomerular Filtration Rate (calc) 75.4 (?) [facility] 59.0 - 9 chloride, serum 98.7 mmol/L [facility] 98.0 - 107.0 9 potassium, serum 4.7 mmol/L [facility] 3.5 - 5.1 9 sodium, serum 137.0 mmol/L [facility] 136.0 - 145.0 9 creatinine, serum 0.8 mg/dL [facility] 0.5 - 1.0 9 carbon dioxide, venous blood 25.0 mmol/L [facility] 23.0 - 31.0 9 calcium, serum 9.5 mg/dL [facility] 8.6 - 10.2 9 urea nitrogen, blood 20.0 mg/dL [facility] 8.0 - 23.0 9 blood glucose, random 110.0 mg/dL [facility] 74.0 - 99.0 High 9 red blood cell distribution width, size [facility].7 [facility]L [facility] immature granulocytes, percentage of total cells, blood 0.1 % [facility] nucleated red blood cells as percent of blood leukocytes 0.0 % [facility] - 9 red blood cell (erythrocyte) count, per high power field 0.0 10*3/UL [facility] eosinophils as percent of blood leukocytes 1.3 % [facility] - 9 neutrophils as percent of blood leukocytes 67.7 % [facility] - 9 Absolute Neutrophils 5.1 CELLS/UL [facility] 1.5 - 7.8 9 basophils as percent of blood leukocytes 0.5 % [facility] - 9 Absolute Basophils 0.0 CELLS/UL [facility] 0.0 - 0.2 9 monocytes as percent of blood leukocytes 9.2 % [facility] - 9 Absolute Monocytes 0.7 CELLS/UL [facility] 0.2 - 1.0 9 lymphocytes as percent of blood leukocytes 21.2 % [facility] - 9 Absolute Lymphocytes 1.6 CELLS/UL [facility] 0.9 - 3.9 9 mean platelet volume 9.5 (?) [facility] - 9 platelet count 322.0 THOUSAND/U L [facility] 100.0 - 400.0 9 mean corpuscular hemoglobin concentration, RBC 31.4 G/DL [facility] 31.0 - 38.0 9 mean corpuscular hemoglobin, RBC 29.6 pg [facility] 25.0 - 35.0 9 mean corpuscular volume, RBC 94.4 fL [facility] 75.0 - 100.0 9 hematocrit, blood 42.4 % [facility] 35.0 - 55.0 9 hemoglobin, blood 13.3 g/dL [facility] 11.5 - 16.5 9 erythrocyte count, whole blood 4.5 MILLION/UL [facility] 3.5 - 5.5 9 prothrombin time (patient) 10.0 s [facility] 9.0 - 11.5 9 international normalized ratio (INR) 0.9 [facility] 0.9 - 1.1 HISTORY OF MEDICATION USE Medication Status Instructions Dates Provider Indications Com ments amlodipine 10 mg tablet active TAKE 1 TABLET BY MOUTH DAILY 11/13 Jd Steiner atorvastatin 40 mg tablet active TAKE 1 TABLET BY MOUTH EVERY DAY AT BEDTIME 11/14 Jd Steiner Lexapro 10 mg tablet completed Take 1 tabl et by mouth once a day 11/10 - 07/18 Del Nieto MD meloxicam 7.5 mg tablet active Jd Steiner omeprazole 20 mg capsule,delayed release(DR/EC) completed - 07/18 Del Nieto MD tramadol 50 mg tablet completed - 11/10 Jd Steiner CALCIUM 600 + D TABLET active Take once a day Sharonda Blanco Daily Multivitamin 200-100-500 mcg capsule active Take once a day Sharonda Christianson COMPLETE ORAL TABLET active Take every morning Sharonda Blanco alprazolam 0.25 mg tablet active Take 1 tablet once a day as needed Sharonda Blanco amlodipine 5 mg tablet completed Take 1 tablet once a day 09/22 - 11/13 Jd Steiner omeprazole 20 mg tablet,delayed release (DR/EC) completed once a day 09/22 - 07/15 Jd Steiner carvedilol 25 mg tablet active 1 tablet twice a day 09/22 Del Nieto MD RANITIDINE HCL 150 MG ORAL TABLET completed ONE TAB TWICE DAILY 03/03 - 01/27 Lizette Garay METOPROLOL SUCCINATE ER 50 MG ORAL TABLET EXTENDED RELEASE 24 HOUR completed one tab at night 03/03 - 01/27 Lizette Garay Plavix 75 mg tablet active 1 tablet onc e a day 03/03 Kendal Winkler Lipitor 40 mg tablet completed Take once a day 03/03 - 11/14 Jd Steiner ALPRAZOLAM 0.25 MG ORAL TABLET completed 3 times daily as needed - 01/27 Erica Jameson PRILOSEC 20 MG ORAL CAPSULE DELAYED RELEASE completed 1 tab daily - 03/03 Del Nieto MD lisinopril 40 mg tablet active 1 tablet once a day Del Nieto MD HYDROCHLOROTHIAZIDE 25 MG ORAL TABLET completed ONE TAB DAILY 03/03 - 01/27 Lizette Garay SIMVASTATIN 40 MG ORAL TABLET completed ONE TAB. DAILY - 03/03 Kendal Winkler AMLODIPINE BESYLATE 5 MG ORAL TABLET completed ONE TAB. DAILY - 03/03 Kendal Winkler ESTROPIPATE 1.5 MG ORAL TABLET completed daily - 01/27 Alexx Barber NEXIUM 40 MG ORAL CAPSULE DELAYED RELEASE completed ONE TAB. DAILY - 01/27 Alexx Barber PLAVIX 75 MG ORAL TABLET completed ONE TAB. DAILY 04/03 - 01/27 Alexx Barber CLARITIN 10 MG ORAL TABLET completed 04/03 - 10/16 Bret Bermudez RN ZOLOFT 50 MG ORAL TABLET completed 10/17 - 04/03 Del Nieto MD NEXIUM 40 MG ORAL CAPSULE DELAYED RELEASE completed 10/17 - 01/01 Elo Polanco RN LIPITOR 10 MG ORAL TABLET completed ONCE A DAY - 01/27 Alexx Barber BENICAR HCT 40/25MG MG TABS (OLMESARTAN MEDOXOMIL-HCTZ) completed ONCE A DAY - 01/27 Alexx Barber NIFEDICAL XL TB24 completed 60 mg 10/17 - 04/03 Bret Bermudez RN ASACOL 400 MG TBEC completed tid 10/17 - 12/17 Rama [place] PLAVIX TABLET completed 75 mg daily 10/17 - 10/19 Del Nieto MD aspirin 81 mg tablet,delayed release (DR/EC) active Take 1 once a day 09/22 Lizette Garay SOCIAL HISTORY Date Observation Value Provider drug use none [facility] alcohol use no [facility] smoking, year quit 2012 [facility] dz number of years as a smoker [facility] [address] [facility] Former smoker Jd Isabelaza i drug use none Jd medzai alcohol use no Jd vivekzadahiana smoking, year quit 2012 [facility] dzai number of years as a smoker less than 10 years Jd medza cigarette use yes Jd vivekza smoking status [facility] none Jd medzai alcohol use no Jd medzai smoking, year quit 2012 [facility] dzai number of years as a smoker less than 10 years Jd Bolivarallyssa cigarette use yes Jd Marsalty smoking status Former smoker Jd Starr dahiana social history E&M Patient patito rodriguez smokes. 2 pack per week P myran has been counseled to quit. A lcohol Use - no R egular Exercise - yes D rug Use - no S moking History: Concihta norris is a former smoker. Del Nieto MD social history reviewed E&M revi ewed - no changes required Del Nieto MD social history E&M Patient patito rodriguez smokes. 2 pack per week P myrna has been counseled to quit. A lcohol Use - no R egular Exercise - yes D rug Use - no Smoking History: Conchita norris is a former smoker. Jd Steiner physical exercise, f requency, days per week no Lizette Garay caffeine use, averag e drinks per day yes Lizette Tanisha smoking, year quit 2012 Lizette carrillo number of years as a smoker less than 10 years Lizettedonna Garay cigarette use yes Lizette Bridgette whiting smoking status Former smoker Lizette Dulce rush social history reviewed E&M revi ewed - no changes required Jd Steiner social history E&M Patient patito rodriguez smokes. 2 pack per week P myrna has been counseled to quit. A lcohol Use - no R egular Exercise - yes D rug Use - no Smoking History: Conchita norris is a former smoker. Jd Steiner physical exercise, f requency, days per week no Seramaycol Estes caffeine use, averag e drinks per day yes Seramaycol Estes smoking, year quit 2012 Sera Mateus is number of years as a smoker less than 10 years Sera Franklyn cigarette use yes Sera Estes smoking status Former smoker Sera Estes social history reviewed E&M revi ewed - no changes required Jd Steiner social history reviewed E&M revi ewed - no changes required Jd Steiner social history E&M Patient patito rodriguez smokes. 2 pack per week P myrna has been counseled to quit. A lcohol Use - no R egular Exercise - yes D rug Use - no Smoking History: P myrna is a former smoker. Martin Bender physical exercise, f requency, days per week no Sharondaromulo Blanco caffeine use, averag e drinks per day yes Sharonda Francis smoking, year quit 2012 Sharonda holley number of years as a smoker less than 10 years Sharondaromulo Blanco cigarette use yes Sharonda Yadi bailon smoking status Former smoker Sharonda Shah capri social history reviewed E&M revi ewed - no changes required Del Nieto MD smoking status Former smoker Lola José Luis hein social history E&M Patient patito rodriguez smokes. 2 pack per week P myrna has been counseled to quit. A lcohol Use - no R egular Exercise - yes D rug Use - no Smoking History: Conchita norris is a former smoker. Lola Rodriguez social history reviewed E&M revi ewed - no changes required Lola Rodriguez physical exercise, f requency, days per week no Lizette Garay caffeine use, averag e drinks per day yes Lizette Garay smoking, year quit 2012 Lizette carrillo number of years as a smoker less than 10 years Lizette Garay cigarette use yes Lizette whiting social history E&M Patient patito rodriguez smokes. 2 pack per week P myrna has been counseled to quit. A lcohol Use - no R egular Exercise - yes D rug Use - no Smoking History: Conchita norris is a former smoker. Amari Jose Luis social history reviewed E&M revi ewed - no changes required Amari Jose Luis physical exercise, f requency, days per week no Sharonda Blanco caffeine use, averag e drinks per day yes Sharonda Blanco smoking, year quit 2012 Sharonda holley number of years as a smoker less than 10 years Sharonda Blanco cigarette use yes Sharonda Yadi bailon smoking status Former smoker Sharonda Shah capri number of grandchildren Del Nieto MD T cyndie Nieto MD social history E&M Patient patito rodriguez smokes. 2 pack per week P atnicki has been counseled to quit. A lcohol Use - no R egular Exercise - yes D rug Use - no Smoking History: Conchita norris is a former smoker. Del Nieto MD social history reviewed E&M revi ewed - no changes required Del Nieto MD physical exercise, f requency, days per week no [facility] caffeine use, averag e drinks per day yes [facility] smoking, year quit 2012 [facility] number of years as a smoker less than 10 years [facility] cigarette use yes [facility] smoking status Former smoker [facility] social history reviewed E&M revi ewed - no changes required Del Nieto MD social history E&M Patient patito rodriguez smokes. 2 pack per week P atnicki has been counseled to quit. A lcohol Use - no R egular Exercise - yes D rug Use - no Smoking History: Conchita norris is a former smoker. Del Nieto MD physical exercise, f requency, days per week no Sharonda Balnco caffeine use, averag e drinks per day yes Sharonda Blanco smoking, year quit 2012 Sharonda Navarrete kishan number of years as a smoker less than 10 years Sharonda Blanco cigarette use yes Sharonda bailon smoking status Former smoker Sharonda farooq social history reviewed E&M revi ewed - no changes required Del Nieto MD physical exercise, f requency, days per week no Sharonda Blanco alcohol use, average drinks per day social basis only Sharonda Blanco alcohol use no Sharonda felton caffeine use, averag e drinks per day yes Sharonda Blanco drug use none Sharonda felton smoking, year quit 2012 Sharonda maldonadocapri number of years as a smoker less than 10 years Sharonda Blanco cigarette use yes Sharonda Shahjayda bailon smoking status Former smoker Sharonda farooq social history reviewed E&M revi ewed - no changes required Del Nieto MD physical exercise, f requency, days per week no Mannie Hoffmann alcohol use, average drinks per day social basis only Mannie Hoffmann alcohol use no Mannie Hoffmann caffeine use, averag e drinks per day yes Mannie Hoffmann drug use none Mannie Hoffmann smoking, year quit 2012 Mannie I coniram number of years as a smoker less than 10 years [place] Hoffmann cigarette use yes Mannie Hoffmann smoking status Former smoker [place] [facility] social history reviewed
== END 2024-11-25 11:01 | disposition home or self-care (01) ==
LOC: ANHIMG 11:03
PROVIDERS: PCP Family Medicine; Visit Provider Family Medicine
DX: Z12.31 Encounter for screening mammogram for malignant neoplasm of breast (principal)
CPT/HCPCS: 77063; 77067

== ENCOUNTER 2024-12-15 14:57 | Emergency (ER) | payer MEDICARE, SELFPAY ==
--- NOTE | 2024-12-15 15:00 | ED_ITS ---
HPI - General Adult General Chief complaint: Nausea/Vomiting/Diarrhea Stated complaint: Diarrhea Time Seen by Provider: 12/15/24 15:08 Source: patient, RN notes reviewed and old records reviewed Mode of arrival: ambulatory Limitations: no limitations History of Present Illness HPI narrative: 79-year-old female presents to the [facility] with reporting 2 weeks of diarrhea. Reports a history of colitis. Patient states that on December 09 had 20 episodes of diarrhea, December 11, 2011 episodes, December 11 8 episodes, December 13, 2011 episodes, December 13 6 episodes, December 14, 2009 episodes. Patient reports abdominal cramping. No treatment prior to arrival. Has not tried contacting primary care provider Patient has been able to tolerate fluids without issue Onset (ago): week(s) (2) Treatments prior to arrival: none Related Data Home Medications ?Medication ?Instructions ?Recorded ?Confirmed ?Last Taken ?Type calcium 600 mg (as 1 tablet PO BID 06/22/24 11/14/24 Unknown History carbonate)-vitamin D3 10 mcg (400 unit) tablet mecobalamin (vitamin B12) 1,000 1,000 mcg PO DAILY 06/22/24 11/14/24 Unknown History mcg lozenges aspirin 81 mg chewable tablet 81 mg PO DAILY 11/14/24 11/14/24 Unknown History (Aspirin Childrens) Allergies Allergy/AdvReac Type Severity Reaction Status Date / Time No Known Allergies Allergy Verified 12/15/24 15:07 Review of Systems Review of Systems: All systems reviewed & are unremarkable except as noted in HPI and below Constitutional: Constitutional: Reports no additional constitutional complaints ENT: Reports system reviewed and no additional complaints, except as documented Cardiovascular: Cardiovascular: Reports no additional cardiovascular complaints, Denies chest pain and Denies dyspnea Respiratory: Respiratory: Reports no additional respiratory complaints, Denies chest congestion, Denies cough and Denies dyspnea Gastrointestinal: Gastrointestinal: Reports as per HPI, Denies fecal incontinence, Reports diarrhea, Denies nausea and Denies vomiting Musculoskeletal: Musculoskeletal: Reports no additional musculoskeletal com plaints Integumentary/Breasts: Skin/Breast: Reports system reviewed and no additional complaints, except as docu PMFSH Past Medical History Medical History Presence of stent in coronary artery in patient with coronary artery disease Hypertension Ulcerative colitis Surgical History Surgical History Hx of heart artery stent x3 H/O hysterectomy for benign disease Family History Family History Father Heart problem Social History Social History Smoking status: Former smoker Tobacco type: cigarettes Alcohol intake: current Alcohol use details: Very rarely Substance use: never Substance use type: does not use Living arrangements: alone Comments At the time of my signature, I reviewed and agree with the nursing past medical, surgical, social, and family history. There is no relevant family history pertinent to the patient complaint. Exam Const: General: cooperative, no acute distress, well developed, alert, tired appearing, uncomfortable and well nourished Nutritional Appearance: well nourished Orientation/consciousness: patient oriented x3 Limitations: no limitations HENMT: Head: normal to inspection Mouth: Yes Normal oral and palatal mucosa present, Yes lip normal, Yes tongue normal and Yes moist mucous membranes Eyes: General: appearance normal, both eyes and all related structures Alignment and Position: alignment normal Neck: Neck: normal visual inspection, full ROM, no lymphadenopathy and no meningeal signs Chest: Chest palpation & inspection: normal inspection of the chest Resp: Effort & Inspection: normal respiratory effort and able to speak in complete sentences Auscultation: clear to auscultation bilaterally, no crackles, no rales, no rhonchi and no wheezes Cardio: Rate: regular rate GI: GI Palp: No abdominal tenderness and Yes Soft to palpation Auscultation: Hyperactive bowel sounds present Skin: General skin exam: normal color and no rashes or lesions noted Neuro: General: patient oriented x3, gait normal, moves all extremities and no meningeal signs Cognition (Neuro): normal cognition Speech: normal speech Gait exam (Neuro): Normal gait present Extrem: General: normal to inspection, full ROM, capillary refill normal and normal gait Psych: Appearance: grossly normal and well kempt Mental Status: mental status grossly normal Speech and movement: Normal speech and movement present and Clear speech present Affect: normal affect Attitude: cooperative Course Course Level of Care: Express Care Visit Vital Signs Vital signs: Vital Signs Temperature 98.9 F 12/15/24 15:08 Pulse Rate 79 12/15/24 15:08 Respiratory Rate 16 12/15/24 15:08 Blood Pressure 149/65 H 12/15/24 15:08 Pulse Oximetry 97 12/15/24 15:08 Oxygen Delivery Room Air 12/15/24 15:08 Temperature 98.9 F 12/15/24 15:08 Pulse Rate 79 12/15/24 15:08 Respiratory Rate 16 12/15/24 15:08 Blood Pressure 149/65 H 12/15/24 15:08 Pulse Oximetry 97 12/15/24 15:08 Oxygen Delivery Room Air 12/15/24 15:08 Reviewed Medical Decision Making MDM Narrative Medical decision making narrative: Patient presents with family member Patient reports 2 weeks of diarrheal episodes. No treatment prior to arrival. Discussed with patient being transferred to the ER, she is declining. Wants to try the Imodium and hydration with Gatorade and Pedialyte. Patient to follow-up with primary care, proceed to the emergency room. Discussed risk of electrolyte imbalances, dehydration. Patient and family member verbalized understanding and stated that if symptoms do not improve or get worse she will follow-up with primary or go to the emergency room. Discharge instructions reviewed with patient, as well as provided in writing per nursing staff. The instructions also include specific and strict return/GO TO THE ER as well as f/u information. All questions have been answered, and the patient deny any further questions with discharge and discharge plan. Some parts of this dictation were generated by voice recognition software and may contain typographical and/or grammatical inaccuracies. Differential Diagnosis Differential Diagnosis: Colitis, bowel blockage gastroenteritis, diverticulitis Medical Records Medical records reviewed: Yes I reviewed the external patient's medical records. Vital Signs Vital Signs: Vital Signs Temperature 98.9 F 12/15/24 15:08 Pulse Rate 79 12/15/24 15:08 Respiratory Rate 16 12/15/24 15:08 Blood Pressure 149/65 H 12/15/24 15:08 Pulse Oximetry 97 12/15/24 15:08 Oxygen Delivery Room Air 12/15/24 15:08 Temperature 98.9 F 12/15/24 15:08 Pulse Rate 79 12/15/24 15:08 Respiratory Rate 16 12/15/24 15:08 Blood Pressure 149/65 H 12/15/24 15:08 Pulse Oximetry 97 12/15/24 15:08 Oxygen Delivery Room Air 12/15/24 15:08 Reviewed Lab Data Lab results reviewed: Yes I reviewed the patient's lab results. Labs: Reviewed Critical Care Time Critical Care Time Critical Care Time: No Discharge Plan Discharge Clinical Impression: Diarrhea, History of colitis Patient Disposition: Home Condition: Stable Instructions: Antibiotic Form, Acute Diarrhea (ED) Additional Instructions: Stay hydrated, try to drink Pedialyte. Take Imodium If the symptoms are not improving or get worse please go directly to the nearest emergency room for further evaluation, testing and treatment Patient Language: Sinhala Prescriptions: No Action calcium carbonate-vitamin D3 600 mg-10 mcg (400 unit) tablet 1 tablet PO BID mecobalamin (vitamin B12) 1,000 mcg lozenge 1,000 mcg PO DAILY Rx Instructions: allow to dissolve in mouth OR may chew lightly before swallowing amlodipine 5 mg tablet 5 mg PO DAILY Qty: 90 1RF carvedilol 25 mg tablet 25 mg PO BID Qty: 180 1RF clopidogrel 75 mg tablet 75 mg PO DAILY Qty: 90 1RF cyclobenzaprine 5 mg tablet 5 mg PO DAILY PRN (Reason: muscle spasm) Qty: 30 0RF lisinopril 40 mg tablet 40 mg PO DAILY Qty: 90 1RF meloxicam 7.5 mg tablet 7.5 mg PO DAILY Qty: 90 1RF atorvastatin 80 mg tablet 80 mg PO DAILY Qty: 90 1RF Zyrtec 10 mg capsule 10 mg PO DAILY PRN (Reason: allergy symptoms) Qty: 30 0RF aspirin [Aspirin Childrens] 81 mg tablet,chewable 81 mg PO DAILY lidocaine 5 % adhesive patch,medicated 1 patch topical DAILY Qty: 30 2RF Rx Instructions: leave on most painful area for up to 12 hrs alprazolam 0.5 mg tablet 0.5 mg PO DAILY PRN (Reason: anxiety) Qty: 30 0RF duloxetine 60 mg capsule,delayed release(DR/EC) 60 mg PO DAILY Qty: 90 0RF Follow-up/Referrals: Tamera Raza DO [Primary Care Provider] - 1 Week Time of Disposition: 15:18
[2024-12-15 15:08] VITALS: BP 149/65; PULSE 79; RESP 16; TEMP 37.2; O2SAT 97
== END 2024-12-15 15:19 | disposition home or self-care (01) ==
PROVIDERS: Emergency Provider Nurse Practitioner; PCP Family Medicine
DX: R19.7 Diarrhea, unspecified (principal); K51.90 Ulcerative colitis, unspecified, without complications; I10 Essential (primary) hypertension; I25.10 Atherosclerotic heart disease of native coronary artery without angina pectoris; Z95.5 Presence of coronary angioplasty implant and graft; Z87.891 Personal history of nicotine dependence
CPT/HCPCS: 99211; G0463

== ENCOUNTER 2024-12-16 12:45 | Emergency (ER) | payer MEDICARE, SELFPAY ==
--- NOTE | ~2024-12-16 | CT_ITS ---
EXAMINATION: CT abdomen pelvis w con DATE: 12/16/2024 14:02 INDICATION: Upper abdominal pain, diarrhea TECHNIQUE: Computed tomography (CT) of the abdomen and pelvis was performed with 100 mL Omnipaque-350 intravenous contrast. Automated exposure control and iterative reconstruction technique were employe d. The dose-length product was 292.79 mGy-cm. COMPARISON: None. FINDINGS: Lower thorax: Coronary artery calcifications Liver: Normal. Biliary/Gallbladder: Gallbladder is normal. No bile duct dilation. Pancreas: No mass or duct dilation. Spleen: Normal. Adrenals:No mass. Kidneys: No suspicious mass, obstructing stone, or hydronephrosis. GI tract: Mild distal esophageal and gastric wall edema. Marked apparent gastric wall thickening. No small or large bowel dilation. Sigmoid wall thickening/edema. Normal appendix. Diverticulosis without diverticulitis. Mesentery/Peritoneum: No ascites, mass, or free air. Retroperitoneum: No mass. Pelvis: Moderately distended urinary bladder with wall thickening. Absent uterus. Bilateral ovaries n ot visualized. Soft Tissues: Soft tissues and body wall unremarkable. Small uncomplicated fat-containing umbilical h ernia. Bones: No acute osseous finding. Grade 1 anterolistheses at L4-5 and L5-S1. Severe central canal meena nosis at L4-5, secondary to degenerative changes. IMPRESSION: Mild esophagitis/gastritis with gastric wall thickening versus pseudothickening from incomplete diste ntion. Consider referral for endoscopy. Sigmoid wall edema and thickening, likely representing infectious, inflammatory, or ischemic colitis. Possible cystitis, correlate with urinalysis. Reviewed, dictated and finalized at location [facility]. IMPRESSION: Mild esophagitis/gastritis with gastric wall thickening versus pseudothickening from incomplete distention. Consider referral for endoscopy. Sigmoid wall edema and thickening, likely representing infectious, inflammatory , or ischemic colitis. Possible cystitis, correlate with urinalysis.
--- OUTSIDE RECORDS SUMMARY | 2024-12-16 12:47 | XMS_ITS | Data Portability ---
Author Organization [place] - [facility] [place], Main Office Address [address] [place] [address] Assessment Encounter Date Assessment Date Assessment LastModified by Organization Details LastModified Time 03/01/2024 03/01/2024 I have reconciled the patient's medications post their discharge from inpatient facility. Not available 03/01/2024 14:22:26 Plan of Treatment Reminders Order Date Submit Date Provider Last Modified By Organization Details Last Modified Time Details Appointments None recorded. Lab drug of abuse panel, urine [email or web address] (Lab), [address] [place], [address], 4 15:04:59 lipid panel, serum 2022 023 [facility] (Lab), [address] [place], [address], 3 20:54:24 hepatic function panel, serum 2022 023 [facility] (Lab), [address] [place], [address], 3 20:54:29 vitamin D, 25-hydroxy, total, serum 2022 023 [facility] (Lab), [address] [place], [address], 3 01:16:07 CBC w/ auto diff 2022 023 [facility] (Lab), [address] [place], [address], 3 18:55:16 BMP, serum or plasma 2022 023 [facility] (Lab), [address] [place], [address], 3 20:54:34 Referral None recorded. Procedures None recorded. Surgeries None recorded. Imaging DEXA - *Please call pt to schedule* [address] ([facility]), [address] [place], [address], 4 08:52:41 MAMMO, screening, digital, bilateral [address], [address] [facility], [address], [place], [address], 4 10:31:21 DEXA [address], [address], [address], [place], [address], 3 16:29:45 Medication Orders nitroglycer in 0.4 mg sublingual tablet 2023 024 [facility]armacy #[id number], [address], [place], [address], 4 14:27:59 carvedilol 25 mg tablet 2023 024 [facility]/Pharmacy #[id number], [address], [place], [address], 4 10:43:45 alprazolam 0.5 mg tablet 2023 024 [facility] [address] [facility], [place], [address], 4 14:13:12 polyethylen e glycol 3350 17 gram/dose oral powder 2022 023 [facility], [address] [facility], [place], [address], 10:57:15 Patient TargetsNo targets recorded. Patient Instructions Encounter Date Encounter Id Patient Instructions Last Modified By Organization Details Last Modified Time 05/12/2023 [id number] dementia rating scale-2* [email or web address] Not available 05/12/2023 18:07:18 multi-dimensiona l health assessment questionnaire* [email or web address] Not available 05/12/2023 18:07:22 Personalized Hea lt Plan and Screening Recommendations Advance Directives - Do you have one? Advance Directives - Do we have your advance directive on file in your health record? Primary Prevention/Interven tion (prevents or decreases the chance of common diseases from occurring) Smoking Risk: Alcohol Misuse Screening: Weight: Physical activity: Nutrition: Fall Risk (screened today): Low Vaccines Pneumococcal: No further needed Influenza: Chronic Disease Risks Stroke: Active diagnosis, Continue current treatment plan Heart Attack: Active diagnosis, Continue current treatment plan Clogging of the Arteries: Active diagnosis, Continue current treatment plan Diabetes: Active diagnosis, Continue current treatment plan Secondary Prevention/Interven tion (detects treatable diseases before they may cause symptoms, disability, or ) Breast Cancer Screening with mammogram: Ordered Cervical/Uterine/Ov ravin Cancer Screening: No screening necessary Osteoporosis Screening: Ordered Date Screening Last Performed: Colon Cancer Screening: No screening necessary Date Screening Last Performed: Eye Disease Screening: Ordered Recommended today Recommended today, but you have declined No Eye exam necessary Your next exam in: Dementia Risk: Depression Screening: Active diagnosis, Continue current treatment plan Not available 05/12/2023 10:59:43 03/01/2024 [id number] Thank you for yo ur visit to [...] Not available 03/01/2024 14:22:26 Homebound Status : Required Home Health Services: Durable Medical Equipment needed: Billing Guidelines CPT code 54221- Transitional Care Management services with moderate medical decision complexity (vorq-wc-urkt visit within 14 days of discharge). CPT code 34590- Transitional Care Management services with high medical decision complexity (vnxq-cm-rosf visit within 7 days of discharge). Not [...] cient : 30-10 0 ng/mL Not Available [facility] (Lab) [address] [place], [address], 05/11/2022 21:19:26 05/11/20 22 05/11/2022 HEPAT IC/LI HOPE PANEL alkaline phosphatase 92 U/L 38-126 Not Available [facility] (Lab) [address] [place], [address], 05/11/2022 20:53:03 05/11/20 22 05/11/2022 HEPAT IC/LI HOPE PANEL alanine aminotransfe rase 20 U/L 0-35 Not Available [facility] (Lab) [address] [place], [address], 05/11/2022 20:53:03 05/11/20 22 05/11/2022 HEPAT IC/LI HOPE PANEL aspartate aminotransfe rase 28 U/L 15-37 Not Available [facility] (Lab) [address] [place], [address], 05/11/2022 20:53:03 05/11/20 22 05/11/2022 HEPAT IC/LI HOPE PANEL bilirubin, total 0.70 mg/dL 0.20-1 .30 Not Available [facility] (Lab) [address] [place], [address], 05/11/2022 20:53:03 05/11/20 22 05/11/2022 HEPAT IC/LI HOPE PANEL bilirubin, conjugated (direct) 0.00 mg/dL 0.00-0 .30 Not Available [facility] (Lab) [address] [place], [address], 05/11/2022 20:53:03 05/11/20 22 05/11/2022 HEPAT IC/LI HOPE PANEL biliurubin,u ncong. (indirect) 0.60 mg/dL 0.00-1 .1 Not Available [facility] (Lab) [address] [place], [address], 05/11/2022 20:53:03 05/11/20 22 05/11/2022 HEPAT IC/LI HOPE PANEL total protein 7.3 g/dL 6.3-8. 2 Not Available [facility] (Lab) [address] [place], [address], 05/11/2022 20:53:03 05/11/20 22 05/11/2022 HEPAT IC/LI HOPE PANEL albumin 4.4 g/dL 3.0-4. 4 Not Available [facility] (Lab) [address] [place], [address], 05/11/2022 20:53:03 05/11/20 22 05/11/2022 HEPAT IC/LI HOPE PANEL globulin 2.9 g/dL 2.6-4. 2 Not Available [facility] (Lab) [address] [place], [address], 05/11/2022 20:53:03 05/11/2005/11/2022 HEPAT IC/LI HOPE PANEL A/G ratio 1.5 ratio 1.0-2. 0 Not Available [facility] (Lab) [address] [place], [address], 05/11/2022 20:53:03 05/11/20 22 05/11/2022 LIPID PANEL cholesterol 178 mg/dL 140-19 9 NIH YVETTE NSUS RECOM MENDA TION FOR RUPA STERO L: ADULT CHILD LOW RISK: <200 <170 BORDE RLINE : <200- 239 ----- HIGH RISK: >240 >200 Not Available [facility] (Lab) [address] [place], [address], 05/11/2022 20:52:15 05/11/2005/11/2022 LIPID PANEL triglyceride s 153 mg/dL 0-150 high NIH YVETTE NSUS REPOR T RECOM MENDA TION FOR TRIGL YCERI KYLAH: ADULT CHILD LOW RISK: <150 ----- BODER LINE: 150-1 99 ----- HIGH RISK: >200 ----- Not Available [facility] (Lab) [address] [place], [address], 05/11/2022 20:52:15 05/11/20 22 05/11/2022 LIPID PANEL HDL cholesterol 60 mg/dL 40- Not Available [facility] (Lab) [address] [place], [address], 05/11/2022 20:52:15 05/11/2005/11/2022 LIPID PANEL LDL cholesterol, calculated 87 mg/dL [...] WILL NOT BE REPOR LANCE. Not Available [facility] (Lab) [address] [place], [address], 05/11/2022 20:52:15 05/11/20 22 05/11/2022 BASIC METAB OLIC PANEL sodium 139 mmol/ L 137-14 5 Not Available [facility] (Lab) [address] [place], [address], 05/11/2022 20:52:13 05/11/2005/11/2022 BASIC METAB OLIC PANEL potassium 4.2 mmol/ L 3.5-5. 1 Not Available [facility] (Lab) [address] [place], [address], 05/11/2022 20:52:13 05/11/2005/11/2022 BASIC METAB OLIC PANEL chloride 101 mmol/ L 98-107 Not Available [facility] (Lab) [address] [place], [address], 05/11/2022 20:52:13 05/11/20 22 05/11/2022 BASIC METAB OLIC PANEL carbon dioxide 29 mmol/ L 22-30 Not Available [facility] (Lab) [address] [place], [address], 05/11/2022 20:52:13 05/11/2005/11/2022 BASIC METAB OLIC PANEL anion gap 13.2 mmol/ L 14-22 low Not Available [facility] (Lab) [address] [place], [address], 05/11/2022 20:52:13 05/11/20 22 05/11/2022 BASIC METAB OLIC PANEL glucose 101 mg/dL 70-99 high Not Available [facility] (Lab) [address] [place], [address], 05/11/2022 20:52:13 05/11/20 22 05/11/2022 BASIC METAB OLIC PANEL BUN 17 mg/dL 8-19 Not Available [facility] (Lab) [address] [place], [address], 05/11/2022 20:52:13 05/11/20 22 05/11/2022 BASIC METAB OLIC PANEL creatinine 0.71 mg/dL 0.66-1 .25 Not Available [facility] (Lab) [address] [place], [address], 05/11/2022 20:52:13 05/11/20 22 05/11/2022 BASIC METAB OLIC PANEL GFR >60 Refer ence Range : [place] GFR Healt hy Adult : >60 [...] or ethni c subgr oups, such as la nics. Outsi de the valid ated lupe [...] calcu lator is avail able on the [facility] websi te: https :[email or web address] parsons.o rg/pr ofess ional s/kdo qi/gf r_cal culat or Not Available [facility] (Lab) [address] [place], [address], 05/11/2022 20:52:13 05/11/20 22 05/11/2022 BASIC METAB OLIC PANEL calcium 9.6 mg/dL 8.4-10 .2 Not Available [facility] (Lab) [address] [place], [address], 05/11/2022 20:52:13 05/11/20 22 05/11/2022 CBC/C OMPLE TE BLD COUNT W/DIF F white blood cells 6.3 x10'3 /uL 4.2-10 .8 Not Available [facility] (Lab) [address] [place], [address], 05/11/2022 19:17:40 05/11/20 22 05/11/2022 CBC/C OMPLE TE BLD COUNT W/DIF F red blood cells 4.24 x10'6 /uL 3.80-5 .20 Not Available [facility] (Lab) [address] [place], [address], 05/11/2022 19:17:40 05/11/20 22 05/11/2022 CBC/C OMPLE TE BLD COUNT W/DIF F hemoglobin 13.3 g/dL 12.0-1 5.6 Not Available [facility] (Lab) [address] [place], [address], 05/11/2022 19:17:40 05/11/20 22 05/11/2022 CBC/C OMPLE TE BLD COUNT W/DIF F hematocrit 40.3 % 35.7-4 5.7 Not Available [facility] (Lab) [address] [place], [address], 05/11/2022 19:17:40 05/11/20 22 05/11/2022 CBC/C OMPLE TE BLD COUNT W/DIF F mean red cell volume 95.0 fL 82.0-9 9.0 Not Available [facility] (Lab) [address] [place], [address], 05/11/2022 19:17:40 05/11/20 22 05/11/2022 CBC/C OMPLE TE BLD COUNT W/DIF F mean red cell hemoglobin 31.4 pg 27.0-3 3.0 Not Available [facility] (Lab) [address] [place], [address], 05/11/2022 19:17:40 05/11/20 22 05/11/2022 CBC/C OMPLE TE BLD COUNT W/DIF F mean RBC HGB concentratio n 33.0 g/dL 31.0-3 6.0 Not Available [facility] (Lab) [address] [place], [address], 05/11/2022 19:17:40 05/11/20 22 05/11/2022 CBC/C OMPLE TE BLD COUNT W/DIF F red cell distribution width 13.1 % 11.8-1 5.5 Not Available [facility] (Lab) [address] [place], [address], 05/11/2022 19:17:40 05/11/20 22 05/11/2022 CBC/C OMPLE TE BLD COUNT W/DIF F platelets 244 x10'3 /uL 150-40 0 Not Available [facility] (Lab) [address] [place], [address], 05/11/2022 19:17:40 05/11/20 22 05/11/2022 CBC/C OMPLE TE BLD COUNT W/DIF F mean platelet volume 9.7 fL 9.0-12 .4 Not Available [facility] (Lab) [address] [facility] [place], [address], 05/11/2022 19:17:40 05/11/20 22 05/11/2022 CBC/C OMPLE TE BLD COUNT W/DIF F neutrophils 51.0 % 39.0-7 2.0 Not Available [facility] (Lab) [address] [place], [address], 05/11/2022 19:17:40 05/11/2005/11/2022 CBC/C OMPLE TE BLD COUNT W/DIF F lymphocytes 34.7 % 16.0-4 7.0 Not Available [facility] (Lab) [address] [place], [address], 05/11/2022 19:17:40 05/11/20 22 05/11/2022 CBC/C OMPLE TE BLD COUNT W/DIF F monocytes 10.0 % 5.0-12 .0 Not Available [facility] (Lab) [address] [place], [address], 05/11/2022 19:17:40 05/11/20 22 05/11/2022 CBC/C OMPLE TE BLD COUNT W/DIF F eosinophils 3.3 % 1.0-7. 0 Not Available [facility] (Lab) [address] [place], [address], 05/11/2022 19:17:40 05/11/2005/11/2022 CBC/C OMPLE TE BLD COUNT W/DIF F basophils 0.8 % 0.0-2. 0 Not Available [facility] (Lab) [address] [place], [address], 05/11/2022 19:17:40 05/11/20 22 05/11/2022 CBC/C OMPLE TE BLD COUNT W/DIF F immature granulocytes 0.2 % 0.00-0 .50 Not Available [facility] (Lab) [address] [place], [address], 05/11/2022 19:17:40 05/11/20 22 05/11/2022 CBC/C OMPLE TE BLD COUNT W/DIF F neutrophils, absolute count 3.22 x10'3 /uL 1.5-8. 0 Not Available [facility] (Lab) [address] [place], [address], 05/11/2022 19:17:40 05/11/2005/11/2022 CBC/C OMPLE TE BLD COUNT W/DIF F lymphocytes, absolute count 2.19 x10'3 /uL 1.07-3 .43 Not Available [facility] (Lab) [address] [place], [address], 05/11/2022 19:17:40 05/11/20 22 05/11/2022 CBC/C OMPLE TE BLD COUNT W/DIF F monocytes, absolute count 0.63 x10'3 /uL 0.29-0 .99 Not Available [facility] (Lab) [address] [place], [address], 05/11/2022 19:17:40 05/11/20 22 05/11/2022 CBC/C OMPLE TE BLD COUNT W/DIF F eosinophils, absolute count 0.21 x10'3 /uL 0.02-0 .53 Not Available [facility] (Lab) [address] [place], [address], 05/11/2022 19:17:40 05/11/20 22 05/11/2022 CBC/C OMPLE TE BLD COUNT W/DIF F basophils, absolute count 0.05 x10'3 /uL 0.01-0 .08 Not Available [facility] (Lab) [address] [place], [address], 05/11/2022 19:17:40 05/11/20 22 05/11/2022 CBC/C OMPLE TE BLD COUNT W/DIF F immature granulocytes ,absolute 0.01 x10'3 /uL 0.00-0 .05 Not Available [facility] (Lab) [address] [place], [address], 05/11/2022 19:17:40 1005/11/2022 CBC/C OMPLE TE BLD COUNT W/DIF F nucleated red blood cells 0.0 % -0 Not Available [facility] (Lab) [address] [place], [address], 05/11/2022 19:17:40 05/11/20 22 05/11/2022 CBC/C OMPLE TE BLD COUNT W/DIF F NRBC# 0.00 x10'3 /uL Not Available [facility] (Lab) [address] [place], [address], 05/11/2022 19:17:40 05/12/20 23 05/12/2023 CBC/C OMPLE TE BLD COUNT W/DIF F white blood cells 6.0 x10'3 /uL 4.2-10 .8 Not Available [facility] (Lab) [address] [place], [address], 05/12/2023 18:55:16 05/12/20 23 05/12/2023 CBC/C OMPLE TE BLD COUNT W/DIF F red blood cells 4.49 x10'6 /uL 3.80-5 .20 Not Available [facility] (Lab) [address] [place], [address], 05/12/2023 18:55:16 05/12/20 23 05/12/2023 CBC/C OMPLE TE BLD COUNT W/DIF F hemoglobin 14.0 g/dL 12.0-1 5.6 Not Available [facility] (Lab) [address] [place], [address], 05/12/2023 18:55:16 05/12/20 23 05/12/2023 CBC/C OMPLE TE BLD COUNT W/DIF F hematocrit 42.4 % 35.7-4 5.7 Not Available [facility] (Lab) [address] [place], [address], 05/12/2023 18:55:16 11/01/20 23 05/12/2023 CBC/C OMPLE TE BLD COUNT W/DIF F mean red cell volume 94.4 fL 82.0-9 9.0 Not Available [facility] (Lab) [address] [place], [address], 05/12/2023 18:55:16 05/12/20 23 05/12/2023 CBC/C OMPLE TE BLD COUNT W/DIF F mean red cell hemoglobin 31.2 pg 27.0-3 3.0 Not Available [facility] (Lab) [address] [place], [address], 05/12/2023 18:55:16 05/12/20 23 05/12/2023 CBC/C OMPLE TE BLD COUNT W/DIF F mean RBC HGB concentratio n 33.0 g/dL 31.0-3 6.0 Not Available [facility] (Lab) [address] [place], [address], 05/12/2023 18:55:16 05/12/20 23 05/12/2023 CBC/C OMPLE TE BLD COUNT W/DIF F red cell distribution width 12.7 % 11.8-1 5.5 Not Available [facility] (Lab) [address] [place], [address], 05/12/2023 18:55:16 05/12/20 23 05/12/2023 CBC/C OMPLE TE BLD COUNT W/DIF F platelets 263 x10'3 /uL 150-40 0 Not Available [facility] (Lab) [address] [place], [address], 05/12/2023 18:55:16 05/12/20 23 05/12/2023 CBC/C OMPLE TE BLD COUNT W/DIF F mean platelet volume 10.1 fL 9.0-12 .4 Not Available [facility] (Lab) [address] [place], [address], 05/12/2023 18:55:16 05/12/20 23 05/12/2023 CBC/C OMPLE TE BLD COUNT W/DIF F neutrophils 55.7 % 39.0-7 2.0 Not Available [facility] (Lab) [address] [place], [address], 05/12/2023 18:55:16 05/12/20 23 05/12/2023 CBC/C OMPLE TE BLD COUNT W/DIF F lymphocytes 30.6 % 16.0-4 7.0 Not Available [facility] (Lab) [address] [place], [address], 05/12/2023 18:55:16 05/12/2005/12/2023 CBC/C OMPLE TE BLD COUNT W/DIF F monocytes 10.1 % 5.0-12 .0 Not Available [facility] (Lab) [address] [place], [address], 05/12/2023 18:55:16 05/12/2005/12/2023 CBC/C OMPLE TE BLD COUNT W/DIF F eosinophils 2.7 % 1.0-7. 0 Not Available [facility] (Lab) [address] [place], [address], 05/12/2023 18:55:16 05/12/2005/12/2023 CBC/C OMPLE TE BLD COUNT W/DIF F basophils 0.7 % 0.0-2. 0 Not Available [facility] (Lab) [address] [place], [address], 05/12/2023 18:55:16 05/12/2005/12/2023 CBC/C OMPLE TE BLD COUNT W/DIF F immature granulocytes 0.2 % 0.00-0 .50 Not Available [facility] (Lab) [address] [place], [address], 05/12/2023 18:55:16 05/12/20 23 05/12/2023 CBC/C OMPLE TE BLD COUNT W/DIF F neutrophils, absolute count 3.32 x10'3 /uL 1.5-8. 0 Not Available [facility] (Lab) [address] [place], [address], 05/12/2023 18:55:16 05/12/20 23 05/12/2023 CBC/C OMPLE TE BLD COUNT W/DIF F lymphocytes, absolute count 1.82 x10'3 /uL 1.07-3 .43 Not Available [facility] (Lab) [address] [place], [address], 05/12/2023 18:55:16 05/12/20 23 05/12/2023 CBC/C OMPLE TE BLD COUNT W/DIF F monocytes, absolute count 0.60 x10'3 /uL 0.29-0 .99 Not Available [facility] (Lab) [address] [place], [address], 05/12/2023 18:55:16 05/12/2005/12/2023 CBC/C OMPLE TE BLD COUNT W/DIF F eosinophils, absolute count 0.16 x10'3 /uL 0.02-0 .53 Not Available [facility] (Lab) [address] [place], [address], 05/12/2023 18:55:16 05/12/2005/12/2023 CBC/C OMPLE TE BLD COUNT W/DIF F basophils, absolute count 0.04 x10'3 /uL 0.01-0 .08 Not Available [facility] (Lab) [address] [place], [address], 05/12/2023 18:55:16 05/12/20 23 05/12/2023 CBC/C OMPLE TE BLD COUNT W/DIF F immature granulocytes ,absolute 0.01 x10'3 /uL 0.00-0 .05 Not Available [facility] (Lab) [address] [place], [address], 05/12/2023 18:55:16 05/12/20 23 05/12/2023 CBC/C OMPLE TE BLD COUNT W/DIF F nucleated red blood cells 0.0 % -0 Not Available [facility] (Lab) [address] [place], [address], 05/12/2023 18:55:16 05/12/20 23 05/12/2023 CBC/C OMPLE TE BLD COUNT W/DIF F NRBC# 0.00 x10'3 /uL Not Available [facility] (Lab) [address] [place], [address], 05/12/2023 18:55:16 05/12/2005/12/2023 VITAM IN D 25-HY DROXY [id number] 72.3 NG/mL 30-100 Vitam in D Statu s: Defic ient: <20 ng/mL Insuf ficie nt: 20-29 ng/mL Suffi cient : 30-10 0 ng/mL Not Available [facility] (Lab) [address] [place], [address], 05/12/2023 20:53:45 05/12/2005/12/2023 LIPID PANEL cholesterol 177 mg/dL 140-19 9 NIH YVETTE NSUS RECOM MENDA TION FOR RUPA STERO L: ADULT CHILD LOW RISK: <200 <170 BORDE RLINE : <200- 239 ----- HIGH RISK: >240 >200 Not Available [facility] (Lab) [address] [place], [address], 05/12/2023 20:54:24 05/12/20 23 05/12/2023 LIPID PANEL triglyceride s 155 mg/dL 0-150 high NIH YVETTE NSUS REPOR T RECOM MENDA TION FOR TRIGL YCERI KYLAH: ADULT CHILD LOW RISK: <150 ----- BODER LINE: 150-1 99 ----- HIGH RISK: >200 ----- Not Available [facility] (Lab) [address] [place], [address], 05/12/2023 20:54:24 05/12/20 23 05/12/2023 LIPID PANEL HDL cholesterol 54 mg/dL 40- Not Available [facility] (Lab) [address] [place], [address], 05/12/2023 20:54:24 05/12/20 23 05/12/2023 LIPID PANEL [...] WILL NOT BE REPOR LANCE. Not Available [facility] (Lab) [address] [place], [address], 05/12/2023 20:54:24 05/12/20 23 05/12/2023 HEPAT IC/LI HOPE PANEL alkaline phosphatase 86 U/L 38-126 Not Available [facility] (Lab) [address] [place], [address], 05/12/2023 20:54:29 05/12/20 23 05/12/2023 HEPAT IC/LI HOPE PANEL alanine aminotransfe rase 22 U/L 0-35 Not Available [facility] (Lab) [address] [place], [address], 05/12/2023 20:54:29 05/12/20 23 05/12/2023 HEPAT IC/LI HOPE PANEL aspartate aminotransfe rase 25 U/L 15-37 Not Available [facility] (Lab) [address] [facility] [place], [address], 05/12/2023 20:54:29 05/12/20 23 05/12/2023 HEPAT IC/LI HOPE PANEL bilirubin, total 0.70 mg/dL 0.20-1 .30 Not Available [facility] (Lab) [address] [facility] [place], [address], 05/12/2023 20:54:29 05/12/20 23 05/12/2023 HEPAT IC/LI HOPE PANEL bilirubin, conjugated (direct) 0.00 mg/dL 0.00-0 .30 Not Available [facility] (Lab) [address] [place], [address], 05/12/2023 20:54:29 05/12/20 23 05/12/2023 HEPAT IC/LI HOPE PANEL biliurubin,u ncong. (indirect) 0.40 mg/dL 0.00-1 .1 Not Available [facility] (Lab) [address] [place], [address], 05/12/2023 20:54:29 05/12/20 23 05/12/2023 HEPAT IC/LI HOPE PANEL total protein 7.0 g/dL 6.3-8. 2 Not Available [facility] (Lab) [address] [place], [address], 05/12/2023 20:54:29 05/12/20 23 05/12/2023 HEPAT IC/LI HOPE PANEL albumin 4.1 g/dL 3.0-4. 4 Not Available [facility] (Lab) [address] [place], [address], 05/12/2023 20:54:29 05/12/20 23 05/12/2023 HEPAT IC/LI HOPE PANEL globulin 2.9 g/dL 2.6-4. 2 Not Available [facility] (Lab) [address] [place], [address], 05/12/2023 20:54:29 05/12/20 23 05/12/2023 HEPAT IC/LI HOPE PANEL A/G ratio 1.4 ratio 1.0-2. 0 Not Available [facility] (Lab) [address] [place], [address], 05/12/2023 20:54:29 05/12/20 23 05/12/2023 BASIC METAB OLIC PANEL sodium 134 mmol/ L 137-14 5 low Not Available [facility] (Lab) [address] [place], [address], 05/12/2023 20:54:34 05/12/20 23 05/12/2023 BASIC METAB OLIC PANEL potassium 4.5 mmol/ L 3.5-5. 1 Not Available [facility] (Lab) [address] [place], [address], 05/12/2023 20:54:34 05/12/20 23 05/12/2023 BASIC METAB OLIC PANEL chloride 102 mmol/ L 98-107 Not Available [facility] (Lab) [address] [place], [address], 05/12/2023 20:54:34 05/12/20 23 05/12/2023 BASIC METAB OLIC PANEL carbon dioxide 29 mmol/ L 22-30 Not Available [facility] (Lab) [address] [place], [address], 05/12/2023 20:54:34 05/12/20 23 05/12/2023 BASIC METAB OLIC PANEL anion gap 7.5 mmol/ L 14-22 low Not Available [facility] (Lab) [address] [place], [address], 05/12/2023 20:54:34 05/12/20 23 05/12/2023 BASIC METAB OLIC PANEL glucose 109 mg/dL 70-99 high Not Available [facility] (Lab) [address] [place], [address], 05/12/2023 20:54:34 05/12/20 23 05/12/2023 BASIC METAB OLIC PANEL BUN 16 mg/dL 8-19 Not Available [facility] (Lab) [address] [facility], [place], [address], 05/12/2023 20:54:34 05/12/20 23 05/12/2023 BASIC METAB OLIC PANEL creatinine 0.77 mg/dL 0.66-1 .25 Not Available [facility] (Lab) [address], [place], [address], 05/12/2023 20:54:34 05/12/20 23 05/12/2023 BASIC METAB OLIC PANEL GFR >60 Refer ence Range : [place] GFR Healt hy Adult : >60 [...] or ethni c subgr oups, such as Pavel nics. Outsi de the valid ated lupe [...] calcu lator is avail able on the [facility] websi te: [email or web address] :[email or web address]/pr ofess ional s/kdo qi/gf r_cal culat or Not Available [facility] (Lab) [address] [place], [address], 05/12/2023 20:54:34 05/12/20 23 05/12/2023 BASIC METAB OLIC PANEL calcium 9.9 mg/dL 8.4-10 .2 Not Available [facility] (Lab) [address] [place], [address], 05/12/2023 20:54:34 06/18/20 22 06/18/2022 scree adalberto flynnas maribel bharati, bilat [facility] [address] [place] [address] [phone] Nelson lópez Name: KYLAH VAZQUEZ Access ion #: [id number] Sex: F : 1945 9 Locati on: RAD Attend ing Physic carlito: JARED MARIE Orderi ng Physic carlito: JARED MARIE Exam Date: 022 12:44 PM Exam Name: MG SCRN BREAST BHARATI BILAT Admitt ing Diagno sis(es ): MAMMOG JAMILA REPORT - FINAL EXAM: MG SCRN BREAST BHARATI BILAT HISTOR Y: SCREEN ING MAMMOG LISETH 76-yea r-old female with no curren t breast compla ints. The patien t has a histor y of benign excisi onal biopsy of the right breast many years ago. COMPAR QUE: Mammog jamila dated 2020 and 2019. TECHNI QUE: Bilate ral CC and MLO views of the breast s were perfor med. Digita l Mammog jamila images were obtain ed. CAD (compu ter assist ed detect ion) was utiliz ed. 3D Digita l breast tomosy nthesi s was perfor med and used in the interp retati on of images . FINDIN GS: The breast s are almost entire ly fatty. Page 1 of 2 [facility] Nelson lópez Name: KYLAH VAZQUEZ Access ion #: [id number] Sex: F : 1945 9 Exam Date: 12:44 PM Exam Name: MG CAMERON BREAST BHARATI BILAT Admitt ing Diagno sis(es ): No masses , asymme tries, suspic ious calcif icatio ns, or stephane ectura l distor tion are seen. IMPRES ELIZABETH: BIRADS 1: Assess ment comple te. Negati ve. Recomm end annual screen ing mammog jamila. Accord ing to the [employer], yearly mammog nona are recomm ended starti ng at age 40 and contin uing as long as the woman is in good health . Clinic al Breast Exam should be part of the period ic health exam-a bout every 3 years for women in their 20s and 30s and every year for women 40 and over. Breast self-e xam is an option for women in their 20s. Any breast change noted on the breast self-e xam she would be report ed prompt ly to the nelson l[facility]pez[facility] er. A negati ve mammog jamila report should not discou rage follow -up or biopsy of a clinic ally signif icant findin g and/or abnorm ality. Dense breast tissue may obscur e small neopla sms. This nelson lópez has been entere d into a mammog jamila remind er system with a target date for her next mammog liseth. Create d and electr onical ly signed by: Bright alex MD Signed Date: 3:29 PM (CT) Dictat ed by: Bright alex MD DD: 3:29 PM (CT) DT: 3:29 PM (CT) Page 2 of 2 [id number] [facility] (Imaging) [address] [place], [address], 09/09/2022 04:59:05 05/27/20 23 05/27/2023 US, echoc ardio gram No observ ation record ed. [email or web address] [facility] [address], [place], [address], 11/19/2023 12:25:24 10/13/19 24 09/28/2023 MAMMO , scree adalberto, digit al, bilat eral No observ ation record ed. [email or web address] [address] [address], [place], [address], 11/10/2023 10:30:23 02/23/20 24 02/23/2024 XR, chest , 2 view No observ ation record ed. [email or web address] [facility] [address] [place], [address], 02/23/2024 15:14:45 02/23/20 24 02/23/2024 XR, chest No observ [facility] [address] [place], [address], 02/23/2024 15:44:15 03/01/20 24 02/23/2024 emerg ency dept. visit * No observ ation record ed. [email or web address] [facility] [address] [place], [address], 03/10/2024 17:10:13 03/17/20 24 03/15/2024 DEXA No observ ation record ed. [address], [address], 03/30/2024 11:13:30 03/17/20 24 03/15/2024 DEXA No observ ation record ed. [address], [address], 03/30/2024 11:13:30 03/17/20 24 03/15/2024 DEXA No observ ation record ed. [address], [address], 03/30/2024 09:53:09 Result Notes None recorded. Problems Name Problem SNOMED Code Status Onset Date Resolution Date Notes Provider Name and Address Organization Details Recorded Time Anxiety 59038844 Active 2022 Kendal Pettit MD [address], [place], [address] , [employer] [facility] 3 13:41:21 Chronic constipation 350984951 Active 2022 Kendal Pettit MD [address], [place], [address] , [employer] [facility] 3 10:51:07 Vitamin D deficiency 50862205 Active 2022 Kendal Pettit MD [address], [place], [address] , [employer] [facility] 3 10:54:28 Coronary arteriosclero sis 09289036 Active 2022 Kendal Pettit MD [address], [place], [address] , [employer] [facility] 3 10:54:34 Gastroesophag eal reflux disease without esophagitis 259454000 Active 2022 Kendal Pettit MD [address], [place], [address] , [employer] [facility] 3 10:54:46 Osteoarthriti s 889628882 Active 2022 Kendal Pettit MD [address], [place], [address] , [employer] [facility] 3 10:54:55 Spasm 41724907 Active 2023 Kendal Pettit MD [address], [place], [address] , [employer] [facility] 4 16:42:17 Degeneration of lumbar intervertebra l disc 96397024 Active 2023 Kendal Pettit MD [address], [place], [address] , [employer] [facility] 4 10:38:58 Angina pectoris 132076652 Active 2023 BLAISE Navarrete [address], [place], [address] , [facility] [employer] 4 14:22:10 Irritable bowel syndrome 55850274 Active Not Available [facility] 3 04:49:37 Cystocele 591811024 Active 2020 Not Available [facility] 3 04:49:37 Osteopenia 992939446 Active 2021 DEXA 04/01 Not Available [facility] 3 04:49:38 Bronchitis 24827349 Active Not Available [facility] 3 04:49:38 Hypertensive disorder 59012523 Active Not Available [facility] 3 04:49:38 History of polyp of colon 602655943 Active Not Available [facility] 3 04:49:38 Coronary atheroscleros is 810249584 Active Not Available [facility] 3 04:49:38 Hyperlipidemi a 16883163 Active Not Available [facility] 3 04:49:38 Essential hypertension 47608860 Active Not Available [facility] 3 04:49:38 Diarrhea 16147801 Active Not Available [facility] 3 04:49:38 Colitis 80496189 Active Not Available [facility] 3 04:49:38 Fatigue 95678911 Active Not Available [facility] 3 04:49:38 Problem Notes None recorded. Procedures Surgical History Date Name Laterality Status Provider Name and Address Organization Details Recorded Time 03/01/20 24 Transitional_Car e_Management completed BLAISE Navarrete [address], [place], [address], [facility] [employer] 03/01/2024 14:26:31 05/12/20 23 Medicare Wellness CPT Code, subsequent completed Robyn Medley RN [facility] 05/12/2023 10:29:36 09/12/19 20 Most Recent Mammogram completed Not Available [facility] 09/09/2022 04:42:11 09/10/19 18 Most Recent Bone Density completed Not Available [facility] 09/09/2022 04:42:10 Hysterectomy completed Not Available [facility] 09/09/2022 04:42:13 Cardiac Stent Placement completed Not Available [facility] 09/09/2022 04:42:13 Cyst Removal completed Not Available [facility] 09/09/2022 04:42:13 colonoscopy completed Not Available [facility] 09/09/2022 04:42:13 Imaging Results None recorded. Procedure Notes None recorded. Medical Equipment None Reported. Allergies No known drug allergies Medications Name Sig Start Date Stop Date Status Note LastModified by Organization Details LastModified Time atorvasta tin 40 mg tablet TAKE 1 TABLET DAILY active Not Available Not Available No t Available atorvasta tin 80 mg tablet TAKE 1 TABLET BY MOUTH EVERYDAY AT BEDTIME active Not Available Not Available No t Available carvedilo l 25 mg tablet TAKE 1 TABLET BY MOUTH TWICE A DAY active Not Available Not Available No t Available atorvasta tin 20 mg tablet Take 1 tablet every day by oral route. 06/21 completed Not Available Not Available Not Available carvedilo l 12.5 mg tablet Take 1 am and 1 pm daily 12/02 completed Not Available Not Available Not Available B Complex 1 tablet Take 1 tablet every day by oral route. 2016 active Not Available Not Available Not Avai lable azithromy amee 250 mg tablet TAKE 2 TABLETS BY MOUTH ON DAY 1, AND THEN TAKE 1 TABLET BY MOUTH ONCE A DAY ON DAY 2 THROUGH DAY 5 11/09 completed Not Available Not Available Not Available aspirin 325 mg tablet Take 1 tablet every day by oral route for 90 days. 12/22 completed Not Available Not Available Not Available ofloxacin 0.3 % eye drops 10/15 completed Not Available Not Available Not Available metoprolo l succinate ER 50 mg tablet,ex tended release 24 hr 2 qd active Not Available Not Available Not Available prednison e 20 mg tablet TAKE 2 TABLETS BY MOUTH ONCE DAILY WITH FOOD FOR 5 DAYS active Not Available Not Available No t Available metoprolo l succinate ER 100 mg tablet,ex tended release 24 hr Take 1 tablet every day by oral route for 14 days. 10/01 completed Not Available Not Available Not Available metronida zole 500 mg tablet Take 1 tablet every 8 hours by oral route. active Not Available Not Available No t Available clopidogr el 75 mg tablet TAKE 1 TABLET DAILY active Not Available Not Available No t Available amlodipin e 5 mg tablet TAKE 1 TABLET DAILY active Not Available Not Available No t Available ciproflox acin 500 mg tablet Take 1 tablet every 12 hours by oral route. active Not Available Not Available No t Available tramadol 50 mg tablet 05/11 completed Not Available Not Available Not Available ketorolac 30 mg/mL (1 mL) injection solution Inject 1 mL every 6 hours by intramus cular route. 03/12 completed Not Available Not Available Not Available simvastat in 40 mg tablet TAKE 1 TABLET DAILY active Not Available Not Available No t Available Promethaz ine VC-Codein e 6.25 mg-5 mg-10 mg/5 mL oral syrup active Not Available Not Available Not Available meloxicam 7.5 mg tablet TAKE 1 TABLET BY MOUTH ONCE DAILY NEEDED active Not Available Not Available No t Available alprazola m 0.5 mg tablet TAKE 1/2 (ONE-RAVINDRA F) TABLET BY MOUTH ONCE DAILY NEEDED active Not Available Not Available No t Available alprazola m 0.25 mg tablet TAKE 1 TABLET BY MOUTH ONCE DAILY NEEDED (NO DRINKING OR DRIVING) 05/12 completed Not Available Not Available Not Available amlodipin e 10 mg tablet Take 1 tablet every day by oral route for 90 days. active Not Available Not Available No t Available benzonata te 100 mg capsule TAKE 1 CAPSULE BY MOUTH EVERY 8 HOURS NEEDED 11/09 completed Not Available Not Available Not Available cephalexi n 500 mg capsule active Not Available Not Available Not Available triamcino lone acetonide 0.1 % topical ointment active Not Available Not Available Not Available ranitidin e 150 mg tablet active Not Available Not Available Not Available hydrochlo rothiazid e 12.5 mg capsule active Not Available Not Available Not Available nitroglyc marla 0.4 mg sublingua l tablet 1 TAB UNDER TONGUE FOR CHEST PAIN. MAX: 3 DOSES W/IN 15MIN active Not Available Not Available No t Available omeprazol e 20 mg capsule,d elayed release TAKE 1 CAPSULE BY MOUTH EVERY DAY active Not Available Not Available No t Available monteluka st 10 mg tablet 09/19 completed Not Available Not Available Not Available hydrochlo rothiazid e 25 mg tablet Take 1 tablet every day by oral route for 90 days. 10/01 completed Not Available Not Available Not Available mupirocin 2 % topical ointment active Not Available Not Available Not Available azelastin e 137 mcg (0.1 %) nasal spray 06/20 completed Not Available Not Available Not Available Cheratuss in AC 10 mg-100 mg/5 mL oral liquid bid 120cc active 10 ML bid for 6 days. Pharmacy is aware Not Available Not Available Not Available ibuprofen 600 mg tablet TAKE 1 TABLET BY MOUTH THREE TIMES DAILY NEEDED FOR PAIN/SWE LLING, TAKE WITH FOOD. DO NOT TAKE FOR LONGER THAN 3 DAYS 05/12 completed Not Available Not Available Not Available polyethyl olayinka glycol 3350 17 gram/dose oral powder 1 capful in liquid daily 2022 active Not Available Not Available Not Avai lable methylpre dnisolone 4 mg tablets in a dose pack Take 1 package by oral route as directed . active Not Available Not Available No t Available hydrocort isone 2.5 % topical ointment active Not Available Not Available Not Available lisinopri l 40 mg tablet TAKE 1 TABLET DAILY active Not Available Not Available No t Available cefdinir 300 mg capsule Take 1 capsule every 12 hours by oral route as directed for 6 days. active Not Available Not Available No t Available losartan 100 mg tablet Take 1 tablet every day by oral route in the morning for 30 days. 10/01 completed Not Available Not Available Not Available fluticaso ne propionat e 50 mcg/actua tion nasal spray,humberto [place] 1 spray every day by intranas al route. 03/04 completed Not Available Not Available Not Available sertralin e 50 mg tablet TAKE 1 TABLET BY MOUTH ONCE DAILY active Not Available Not Available No t Available dicyclomi ne 10 mg capsule Take 1 capsule 3 times a day by oral route. active Not Available Not Available No t Available loratadin e 10 mg tablet Take 1 tablet every day by oral route for 30 days. 03/04 completed Not Available Not Available Not Available escitalop liseth 10 mg tablet 05/12 completed Not Available Not Available Not Available Lotrimin Ultra 1 % topical cream APPLY TO THE AFFECTED AND SURROUND ING AREAS OF SKIN BY TOPICAL ROUTE TWICE DAILY active Not Available Not Available No t Available cyclobenz aprine 5 mg tablet TAKE 1 TABLET BY MOUTH THREE TIMES DAILY NEEDED active Not Available Not Available No t Available Aspir-81 1 TAB daily 2017 active Not Available Not Available Not Avai lable multivita min qd 2016 active Not Available Not Available Not Avai lable Calcium 600 + Minerals 2 qd 2016 active Not Available Not Available Not Avai lable hydrochlo rothiazid e 12.5 mg tablet Take every day by oral route for 90 days. active Not Available Not Available No t Available diclofena c 1 % topical gel APPLY 2 GRAM TO THE AFFECTED AREA(S) BY TOPICAL ROUTE 3 TIMES PER DAY 10/15 completed Not Available Not Available Not Available Durezol 0.05 % eye drops 10/15 completed Not Available Not Available Not Available GaviLyte- N 420 gram oral solution active Not Available Not Available Not Available Vitals Date Recorded Body height Body mass index (BMI) Body weight Body temperature Heart rate Oxygen saturation Oxygen saturation in Arterial blood by Pulse oximetry Systolic blood pressure Diastolic blood pressure Provider Name and Address Organization Details Last Updated DateTime 3 162.56 cm 28.8 kg/m2 16779.5 2 g 97.3 [degF] 67 /min 98 % 98 % 128 mm[Hg] 72 mm[Hg] Liz rudolph CMA [place] [employer] [facility] 3 10:39:16 Date Recorded Body height Body mass index (BMI) Body weight Body temperature Oxygen saturation Oxygen saturation in Arterial blood by Pulse oximetry Heart rate Systolic blood pressure Diastolic blood pressure Provider Name and Address Organization Details Last Updated DateTime 4 160.02 cm 27.9 kg/m2 12766.8 g 97.9 [degF] 98 % 98 % 70 /min 156 mm[Hg] 60 mm[Hg] Pascale Ervin RN [facility] 4 10:24:33 Date Recorded Body height Body mass index (BMI) Body weight Body temperature Heart rate Oxygen saturation Oxygen saturation in Arterial blood by Pulse oximetry Systolic blood pressure Diastolic blood pressure Provider Name and Address Organization Details Last Updated DateTime 4 160.02 cm 27.5 kg/m2 07131.8 2 g 97.1 [degF] 64 /min 97 % 97 % 124 mm[Hg] 80 mm[Hg] Avis Garrido RN [facility] [employer] [facility] 4 14:07:27 Date Recorded Body mass index (BMI) Body height Oxygen saturation Oxygen saturation in Arterial blood by Pulse oximetry Heart rate Body temperature Body weight Systolic blood pressure Diastolic blood pressure Provider Name and Address Organization Details Last Updated DateTime 2 28.8 kg/m2 162.56 cm 98 % 98 % 72 /min 97.7 [degF] 76252.5 2 g 128 mm[Hg] 62 mm[Hg] Not Available [facility] 3 04:45:11 Date Recorded Body height Body mass index (BMI) Body weight Body temperature Heart rate Oxygen saturation Oxygen saturation in Arterial blood by Pulse oximetry Systolic blood pressure Diastolic blood pressure Provider Name and Address Organization Details Last Updated DateTime 3 162.56 cm 28 kg/m2 46686.5 6 g 97.7 [degF] 71 /min 97 % 97 % 126 mm[Hg] 80 mm[Hg] Robyn Medley RN [facility] [employer] [facility] 3 10:32:47 Social History Question Answer Notes LastModified by [email or web address] ion Details LastModified Time Tobacco Smoking Status Former Smoker quit 2014 started smoking early 20s 1/2 to 1 ppd Not Available [facility] 09/09/2022 04:27:38 Do You Have An Advance Directive? Yes [id number] Information not available 09/09/2022 Do You Wear A Helmet When Biking? Yes MIGRATION.56042 [id number] Information not available 09/09/2022 Are You Blind Or Do You Have Difficulty Seeing? No MIGRATION.99295 [id number] Information not available 09/09/2022 What Is Your Level Of Caffeine Consumption? Moderate MIGRATION.07203 [id number] Information not available 09/09/2022 In The 14 Days Before Symptom Onset, Have You Had Close Contact With A Laboratory-confir med COVID-19 While That Case Was Ill? No MIGRATION.14053 [id number] Information not available 09/09/2022 In The 14 Days Before Symptom Onset, Have You Had Close Contact With A Person Who Is Under Investigation For COVID-19 While That Person Was Ill? No MIGRATION.24587 [id number] Information not available 09/09/2022 Are You Deaf Or Do You Have Serious Difficulty Hearing? No MIGRATION.44355 [id number] Information not available 09/09/2022 What Type Of Diet Are You Following? REGULAR MIGRATION.25313 73022 Information not available 09/09/2022 When Did You Quit Smoking? 6-10yearssin celastcigare tte MIGRATION.50590 [id number] Information not available 09/09/2022 Are There Any Guns Present In Your Home? No MIGRATION.27757 35445 Information not available 09/09/2022 Do You Use Insect Repellent Routinely? No MIGRATION.45227 25507 Information not available 09/09/2022 Do You Have A Medical Power Of House Painting Instructor? Yes Daughter MIGRATION.73059 [id number] Information not available 09/09/2022 What Was The Date Of Your Most Recent Tobacco Screening? 05/12/2023 Information not available 05/12/2023 Do You Have Any Pets? No MIGRATION.66809 18278 Information not available 09/09/2022 What Is Your Relationship Status? MIGRATION.54775 72840 Information not available 09/09/2022 Do You Use Your Seat Belt Or Car Seat Routinely? Yes MIGRATION.94974 [id number] Information not available 09/09/2022 Do You Have Smoke And Carbon Monoxide Detectors In Your Home? Yes MIGRATION.67953 32590 Information not available 09/09/2022 Are You Passively Exposed To Smoke? No MIGRATION.29920 38212 Information not available 09/09/2022 Are There Any Smokers In Your House? No MIGRATION.08441 40074 Information not available 09/09/2022 Do You Use Sunscreen Routinely? No MIGRATION.40416 61425 Information not available 09/09/2022 Has Tobacco Cessation Counseling Been Provided? No MIGRATION.91286 65299 Information not available 09/09/2022 Have You Recently Traveled Abroad? No MIGRATION.23078 95879 Information not available 09/09/2022 Do You Have Difficulty Walking Or Climbing Stairs? No MIGRATION.15336 35786 Information not available 09/09/2022 Do You Have Any Dietary Restrictions? No MIGRATION.52128 72393 Information not available 09/09/2022 Sex: Unknown Functional Status Question Answer Note LastModified by Organizat ion Details LastModified Time Do you use any illicit or recreational drugs? No MIGRATION.687328 6157 Information not available 09/09/2022 Do you or have you ever used any other forms of tobacco or nicotine? No MIGRATION.367919 7609 Information not available 09/09/2022 What is your level of alcohol consumption? Occasional 2 beers per week MIGRATION.800920 0029 Information not available 09/09/2022 Do you have transportation difficulties? No MIGRATION.895437 2143 Information not available 09/09/2022 Are you able to walk? YESWOREST MIGRATION.545804 5958 Information not available 09/09/2022 Do you have difficulty doing errands alone? No MIGRATION.327713 0001 Information not available 09/09/2022 Are you able to care for yourself? Yes MIGRATION.178761 6975 Information not available 09/09/2022 What is your occupation? retired MIGRATION.360133 8980 Information not available 09/09/2022 Do you have difficulty dressing or bathing? No MIGRATION.014378 2482 Information not available 09/09/2022 What is your exercise level? Moderate 5 days per week MIGRATION.805858 4827 Information not available 09/09/2022 Mental Status Question Answer Note LastModified by Organizat ion Details LastModified Time Do you feel stressed (tense, restless, nervous, or anxious, or unable to sleep at night)? [id number] [id number].[id number] 26 Information not available 09/09/2022 Do you have difficulty concentrating, remembering or making decisions? No MIGRATION.[id number] 26 Information not available 09/09/2022 Family History Relationship Description Onset Age of this Age Resolved Age Notes LastModified by Organization Details LastModified Time Father Myocardial infarction [id number] Not available 09/09/2022 04:42:18 Medical History Condition Response ANXIETY DISORDER Y BOWEL PROBLEMS Y HEARTBURN / REFLUX Y HYPERTENSION Y HIGH CHOLESTEROL / HYPERLIPIDEMIA Y Gynecological History Statement/Question Response Abnormal Pap N Date of LMP Most Recent Bone Density 09/09/2017 Date of Last Pap Smear Current Control Method Hysterectom y Most Recent Mammogram 09/12/2019 Obstetrics History GPAL:G 2 P 2 0 0 2 Type Value Full Term 2 Living 2 Total 2 Immunizations Vaccine Type Date Status Note Provider Nam e and Address Organization Details Recorded Time Influenza, split virus, trivalent, preservative 3 completed Not Available [facility] 11/23/2022 15:06:59 Influenza, split virus, quadrivalent, preservative 2 completed Not Available [facility] 11/23/2022 15:06:58 Tdap 7 completed Not Available [facility] 11/23/2022 15:06:59 Influenza, high-dose, quadrivalent, PF 1 completed Not Available [facility] 11/23/2022 15:06:59 Influenza, high-dose, quadrivalent, PF 0 completed Not Available [facility] 11/23/2022 15:06:59 Influenza, high-dose, trivalent, PF 9 completed Not Available [facility] 11/23/2022 15:06:59 Pneumococcal conjugate PCV 13 8 completed Not Available [facility] 11/23/2022 15:06:59 Influenza, high-dose, trivalent, PF 8 completed Not Available [facility] 11/23/2022 15:06:59 pneumococcal polysaccharide PPV23 7 completed Not Available [facility] 11/23/2022 15:06:59 Td (adult), 2 Lf tetanus toxoid, preservative free, adsorbed 7 completed Not Available [facility] 11/23/2022 15:06:59 Influenza, high-dose, trivalent, PF 7 completed Not Available [facility] 11/23/2022 15:06:59 Influenza, high-dose, trivalent, PF 6 completed Not Available [facility] 11/23/2022 15:06:59 Influenza, split virus, trivalent, preservative 4 completed Not Available [facility] 11/23/2022 15:06:59 Influenza, split virus, quadrivalent, PF 5 completed Not Available [facility] 11/23/2022 15:06:59 Past Encounters Encounter ID Performer Location Encounter Start Date Encounter Closed Date Diagnosis/Indication Diagnosis SNOMED-CT Code Diagnosis ICD10 Code Diagnosis Note [id number] Kendal Pettit MD [facility] [address] [place] [address] [address] [facility] [place] [address] 11/15/2020 00:00:00 11/15/2020 09:46:05 [id number] Kendal Pettit MD [facility] [place] [address] [facility] [address] [place] [address] 02/14/2021 00:00:00 02/14/2021 18:17:51 [id number] [facility] _ATHENA_M IGRATION_ DEFAULT_1 _1 , 02/19/2021 00:00:00 02/19/2021 20:36:46 [id number] [facility] _ATHENA_M IGRATION_ DEFAULT_1 _1 , 03/04/2021 00:00:00 03/04/2021 15:51:19 [id number] Kendal Pettit MD [facility] [place] [address] [place] [address] [address] [place] [address] 03/12/2021 00:00:00 04/09/2021 18:32:19 [id number] _ATHN_MIGR ATION_1 _ATHENA_M IGRATION_ DEFAULT_1 _1 , 03/19/2021 00:00:00 03/19/2021 12:12:22 [id number] Kendal Pettit MD [facility] [place] [address] [place] [address] [address] [place] [address] 04/08/2021 00:00:00 04/08/2021 10:37:06 [id number] Kendal Pettit MD [facility] [place] [address] [place] [address] [address] [place] [address] 09/09/2021 00:00:00 09/09/2021 09:43:06 [id number] Kendal Pettit MD [facility] [place] [address] [place] [address] [address] [place] [address] 03/11/2022 00:00:00 03/11/2022 09:37:57 [id number] Kendal Pettit MD [facility] [place] [address] [place] [address] [address] [place] [address] 05/11/2022 00:00:00 05/11/2022 12:05:07 [id number] Kendal Pettit MD [facility] Primary Care [facility] [address] [facility] [address] [place] [address] 11/09/2022 10:22:45 11/09/2022 10:50:01 Essential hypertension 37781090 I10 stablecont inue current medication ssees cardiology f/u in 6 months for wellness exam [id number] Kendal Pettit MD [facility] Primary Care [facility] [address] [facility] [address] [place] [address] 05/12/2023 10:24:08 05/12/2023 11:17:55 Adult health examination 794467914 Z00.00 s/p hysterecto my no pap needed Mammogram order given DEXA done 03/14/21 osteopenia repeat ordered, continue calcium + D and daily walking Hep c negative 04/01 check fasting labs Remain nonsmoker- does not have 30 pack year hx for LDCT Colonoscop y 06/01/22-n o further needed Has received pneumovax 23 and prevnar 13 no h/o chicken pox as a child, no shingles vaccine needed has gotten covid booster and flu vaccine this year recommend rsv vaccine Screening for disorder 494856732 Z13.9 Postmenopausal state 764 56275 Z78.0 Screening mammography 24 575364 Z12.31 Chronic constipation 236 126685 K59.09 up to date with colonoscop yincrease fiber in diet, stay hydratedmi ralax 1 capful in dietf/u in 4 weeks if no improvemen t or sooner if needed Hyperlipidemia 10193626 E78.[address] Nieto Essential hypertension 48808977 I10 stablecont inue current medication ssees cardiology f/u in 6 months Vitamin D deficiency 347 83415 E55.9 Coronary arteriosclerosis 85742794 I25.[address] Nieto Gastroesop hageal reflux disease without esophagitis 297574769 K21.9 stablecont inue PPIhas failed trial off PPI Osteoarthritis 084959798 M19.90 stablecont inue meloxicam [id number] Kendal Pettit MD [facility] Primary Care [facility] [address] [facility] [address] [place] [address] 11/10/2023 10:15:52 11/10/2023 10:46:29 Anxiety 67344585 F41.9 stablerefi ll given Essential hypertension 00536698 I10 stable per home readingsco ntinue current medication ssees cardiology f/u in 6 months Postmenopausal state 764 42704 Z78.0 Degenerati on of lumbar intervertebral disc 84706998 M51.36 continue supportive carecould consider gabapentin if worsening, do PT and MRI [id number] BLAISE Navarrete [facility] [address] [place] [address] 03/01/2024 13:57:30 03/01/2024 14:48:12 Long-term drug therapy 913882450 Z79.899 Pt denies any lending, selling, or borrowing of medication s. Denies any cp, sob, palpitatio ns, or unusual weight loss.Revie wed controlled substance agreement requiremen ts. Refill given.[place] PDMP checked today. Angina pectoris 95821889 0 I20.9 was admitted for thisno new orders givennew referral to cardio given, f/u is next weektrial nitro Transition of care 98742 82307 105 Z75.8 Health Concerns Section Related Observation LastModified by Organization Detai ls LastModified Time None Recorded Concern Status LastModified by Organization Details LastModified Time None Recorded Advance Directives Directive Y: Payers Encounter Date Sequence Insurance Name Policy Number Policy Rosen Covered Member ID Rosen Member ID Guarantor Name 11/09/2022 1 [employer] (MEDICARE REPLACEMENT /ADVANTAGE - HMO) [id number] Luz Vazquez [id number] Luz Vazquez 05/12/2023 1 [employer] (MEDICARE REPLACEMENT /ADVANTAGE - HMO) [id number] Luz Vazquez [id number] Luz Vazquez 11/10/2023 1 [employer] (MEDICARE REPLACEMENT /ADVANTAGE - HMO) [id number] Luz Vazquez [id number] Luz Vazquez 03/01/2024 1 [employer] (MEDICARE REPLACEMENT /ADVANTAGE - HMO) [id number] Luz Vazquez [id number] Luz Vazquez Notes Date Note Type Note Provider Name and Address Organization Details Recorded Time 11/09/2022 text/html here to f/u htn. No questions or concerns. no chest pain or sob Kendal Pettit MD [address], [place] [address], [place], [address], [employer] [facility] 11/09/2022 10:50:16 05/12/2023 text/html Here for wellnes s exam She is having some abd issues. Stools can be very hard/like a brick. It can be painful to push out. No blood in stools. No n/v, appetite is down. 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 Takes tylenol, meloxicam, and stays active Kendal Pettit MD [address], [facility] [address], [place], [address], [employer] 11/28/2023 14:56:08 03/01/2024 text/html pt is here for hospital f/u BLAISE Navarrete [address], [place] [address], [place], [address], [employer] [facility] 03/01/2024 14:29:04 OBGyn Episode No OBEpisode recorded.
--- OUTSIDE RECORDS SUMMARY | 2024-12-16 12:47 | XMS_ITS | CONTINUITY OF CARE DOCUMENT ---
Author Name isael, isael Address Unknown Organization [facility] Address [address] [place] [address] Phone [phone] Care Team Providers Care Television News Producer Name Role Phone Gerson SOFIA, Del Unavailable [phone] KENDAL CABA MD Unavailable PROBLEMS Condition Status Date Provider Notes ABNORMAL [...] In-person encounter Office Visit Del Nieto MD [facility] Cardiology examination - In-person encounter Office Visit Del Nieto MD [facility] - In-person encounter Office Visit Del Nieto MD [facility] CAD-STENT 12/17 TAXUS RCA, ISR RCA stent, 2016HTN--echo ef nl, 05/2023HypercholesterolemiaHyperli pidemia - In-person encounter Office Visit Del Nieto MD [facility] - In-person encounter Office Visit Del Nieto MD [facility] Back pain - In-person encounter Office Visit Del Nieto MD [facility] Arthritis - In-person encounter Office Visit Del Nieto MD [facility] HTN--echo ef nl, 05/2023 - In-person encounter Office Visit Del Nieto MD [facility] - In-person encounter Office Visit Del Nieto MD [facility] - In-person encounter Office Visit Del Nieto MD [facility] - In-person encounter Office Visit Del Nieto MD [facility] CAD-STENT 12/17 TAXUS RCA, ISR RCA stent, 2016Chest pain-type to be determined - In-person encounter Office Visit Del Nieto MD [facility] - In-person encounter Office Visit Del Nieto MD [facility] HTN ESSENTIAL - In-person encounter Office Visit Del Nieto MD [facility] - In-person encounter Office Visit Del Nieto MD [facility] - In-person encounter Office Visit Del Nieto MD [facility] - In-person encounter Office Visit Del Nieto MD [facility] CAD-STENT 12/17 TAXUS RCA, ISR RCA stent, 2015 - In-person encounter Office Visit Del Nieto MD [facility] CAD-STENT 12/17 TAXUS RCA, ISR RCA stent, 2016CAD-05/20 NUC NL EF 41 - In-person encounter Office Visit Del Nieto MD [facility] HypercholesterolemiaShortness of breath - In-person encounter Office Visit Del Nieto MD [facility] - In-person encounter Office Visit Del Nieto MD [facility] - In-person encounter Office Visit Del Nieto MD [facility] - In-person encounter Office Visit Del Nieto MD [facility] ABNORMAL EKG-10/16 ECHO EF 65 - In-person encounter Office Visit Del Nieto MD [facility] Hypercholesterolemia - In-person encounter Office Visit Del Nieto MD [facility] CAD-STENT 12/17 TAXUS RCA, ISR RCA stent, 2016HTN--echo ef nl, 05/2023HypercholesterolemiaSMOKER QUIT VITAL SIGNS Date Observation Value Provider Body Mass Index (Ratio) 25.85 kg/m2 Elmer Nieto MD oxygen saturation, oximetry 96 % Jennifer De Leon pulse rate 62 /min Jennifer campuzano blood pressure, diastolic 80 mm[Hg] Ti pieter De Leon blood pressure, systolic 152 mm[Hg] Daphne penay De Leon weight E&M 153 [lb_av] Jennifer Slaterjazmín s blood pressure, cuff size regular Shar De Leon height E&M 64.5 [in_i] Jennifer Saundjazmín s Body Mass Index (Ratio) 25.99 kg/m2 Elmer Nieto MD blood pressure, diastolic 76 mm[Hg] Fredy Hart blood pressure, systolic 138 mm[Hg] Fadia gill Hart oxygen saturation, oximetry 96 % Belkys Hart pulse rate 63 /min Fredyaroursula Hart blood pressure, cuff size regular Fredy orta Hart weight E&M 153.8 [lb_av] Fredyaron Hart height E&M 64.5 [in_i] Fredyaron Hart Body Mass Index (Ratio) 27.04 kg/m2 Elmer Nieto MD blood pressure, cuff size regular Ja rret blood pressure, diastolic 84 mm[Hg] Ja rret blood pressure, systolic 152 mm[Hg] Jar ret pulse rate 71 /min Darius er y respiratory rate E&M 14 /min Darius oxygen saturation, oximetry 97 % Darius weight E&M 160 [lb_av] Darius er y height E&M 64.5 [in_i] Darius y Body Mass Index (Ratio) 27.71 kg/m2 Elmer Nieto MD blood pressure, diastolic 76 mm[Hg] Shira [employer]kLogic blood pressure, systolic 134 mm[Hg] Felicity kLogic blood pressure, cuff size regular Ja rret blood pressure, diastolic 76 mm[Hg] Ja rret blood pressure, systolic 134 mm[Hg] Jar ret pulse rate 68 /min Darius er y respiratory rate E&M 12 /min Darius oxygen saturation, oximetry 97 % Darius weight E&M 164 [lb_av] Darius erda y height E&M 64.5 [in_i] Darius Benito y Body Mass Index (Ratio) 28.56 kg/m2 Elmer Nieto MD blood pressure, cuff size regular Ke rri Christianueantoninopatriceeldjazmín blood pressure, diastolic 70 mm[Hg] Tu rri Bridgetteeldjazmín blood pressure, systolic 142 mm[Hg] Linda thompson Tanisha oxygen saturation, oximetry 94 % Lizette Tanisha respiratory rate E&M 14 /min Lizette Brown sawyerenenfelder pulse rate 73 /min Lizette Martha lder weight E&M 169 [lb_av] Lizette Martha lder height E&M 64.5 [in_i] Lizette Martha sotelo Body Mass Index (Ratio) 28.73 kg/m2 Elmer Nieto MD blood pressure, diastolic 85 mm[Hg] St ghada Estes blood pressure, systolic 158 mm[Hg] Tang Estes oxygen saturation, oximetry 95 % Sera Estes pulse rate 69 /min Sera Estes respiratory rate E&M 16 /min Sera steiner weight E&M 170 [lb_av] Sera Estes height E&M 64.5 [in_i] Sera Estes Body Mass Index (Ratio) 28.73 kg/m2 Elmer [...] Nieto MD blood pressure, diastolic 80 mm[Hg] Li nkLogic blood pressure, systolic 136 mm[Hg] Felicity kLogic blood pressure, cuff size regular Cy derrell Blanco blood pressure, diastolic 80 mm[Hg] Cy ntfrancis Blanco blood pressure, systolic 136 mm[Hg] Ember means Blanco pulse rate 77 /min Sharondamiguelangel Augustine l respiratory rate E&M 16 /min Sharonda Blanco oxygen saturation, oximetry 94 % Sharonda Blanco weight E&M 168 [lb_av] Sharonda Campbel l height E&M 64.5 [in_i] Sharonda Campbel l Body Mass Index (Ratio) 28.05 kg/m2 Elmer Nieto MD blood pressure, cuff size regular Ke rri Michellenevictor manuel blood pressure, diastolic 72 mm[Hg] Ke rri Gruenenfelder blood pressure, systolic 132 mm[Hg] Linda ri Michellenenfjohanne oxygen saturation, oximetry 97 % Lizette Tanisha respiratory rate E&M 16 /min Lizette G saywerenenfelder pulse rate 81 /min Lizette Christianuenenfe lder weight E&M 166 [lb_av] Lizette Christianuenenfe lder height E&M 64.5 [in_i] Lizette Christianuenenfe lder Body Mass Index (Ratio) 28.22 kg/m2 Elmer Nieto MD blood pressure, diastolic 62 mm[Hg] Maycol Blanco blood pressure, systolic 136 mm[Hg] Ember Blanco blood pressure, cuff size regular Cy derrell Blanco pulse rate 78 /min Sharonda Pablobel l oxygen saturation, oximetry 97 % Sharonda Blanco respiratory rate E&M 16 /min Sharonda Blanco weight E&M 167 [lb_av] Sharonda Campbel l height E&M 64.5 [in_i] Sharonda Pablobel l Body Mass Index (Ratio) 29.23 kg/m2 Elmer Nieto MD pulse rate 84 /min [facility] blood pressure, diastolic 75 mm[Hg] To [facility] blood pressure, systolic 149 mm[Hg] Ton [facility] respiratory rate E&M 16 /min [facility] oxygen saturation, oximetry 97 % [facility] weight E&M 173 [lb_av] [facility] height E&M 64.5 [in_i] [facility] Body Mass Index (Ratio) 29.91 kg/m2 Elmer Nieto MD blood pressure, cuff size regular Cy derrell Blanco blood pressure, diastolic 70 mm[Hg] Maycol dove Blanco blood pressure, systolic 130 mm[Hg] Ember Blanco oxygen saturation, oximetry 97 % Sharonda Blanco respiratory rate E&M 16 /min Sharonda Blanco pulse rate 71 /min Sharonda Pablobel l height E&M 64.5 [in_i] Sharonda Pablobel l weight E&M 177 [lb_av] Sharonda Campbel l Body Mass Index (Ratio) 29.40 kg/m2 Elmer Nieto MD weight E&M 174 [lb_av] Sharonda Pablobel l blood pressure, cuff size regular Cy derrell Blanco blood pressure, diastolic 64 mm[Hg] Cy derrell Blanco blood pressure, systolic 132 mm[Hg] Ember Blanco oxygen saturation, oximetry 98 % Sharonda Blanco respiratory rate E&M 16 /min Sharonda Blanco pulse rate 64 /min Sharonda felton height E&M 64.5 [in_i] Sharonda Augustine l Body Mass Index (Ratio) 29.23 kg/m2 Elmer Nieto MD blood pressure, resting Yes Ashok carrillo [place] blood pressure, diastolic 68 mm[Hg] Cordell morales [place] blood pressure, systolic 130 mm[Hg] Anna Marie greene [place] oxygen saturation, oximetry 98 % Mannie [place] respiratory rate E&M 16 /min [facility] 83 /min [facility] weight E&M 173 [lb_av] Mannie [place] height E&M 64.5 [in_i] Mannie [place] Body Mass Index (Ratio) 29.06 kg/m2 Elmer Nieto MD blood pressure, cuff size regular Kylah Trino blood pressure, diastolic 70 mm[Hg] Ynaet fishman Trino blood pressure, systolic 130 mm[Hg] Khurram jennifer Trino oxygen saturation, oximetry 99 % Erica Jameson respiratory rate E&M 16 /min Ericaromulo Jameson pulse rate 79 /min Ericaromulo Jameson weight E&M 172 [lb_av] Erica Trino height E&M 64.5 [in_i] Erica Jameson Body Mass Index (Ratio) 29.74 kg/m2 Elmer Nieto MD blood pressure, cuff size regular Ke rri Tanisha blood pressure, diastolic 88 mm[Hg] Ke rri Tanisha blood pressure, systolic 201 mm[Hg] Ker ri Tanisha oxygen saturation, oximetry 96 % Lizette Gonzalesmary respiratory rate E&M 16 /min Lizette Brown sawyerolayinkavictor manuel pulse rate 72 /min Lizette Thomas [facility] weight E&M 176 [lb_av] Lizette Thomas [facility] height E&M 64.5 [in_i] Lizette Thomas [facility] blood pressure, diastolic 80 mm[Hg] Me colon Winkler blood pressure, systolic 164 mm[Hg] Viktoria burciaga Winkler pulse rate 78 /min Kendal Winkler oxygen saturation, oximetry 95 % Kendal Winkler respiratory rate E&M 15 /min Kendal Winkler Body Mass Index (Ratio) 29.23 kg/m2 Magi villarreal Winkler weight E&M 173 [lb_av] Kendal Winkler blood pressure, diastolic 60 mm[Hg] Chance Yatesby blood pressure, systolic 118 mm[Hg] Duyen chi Mitchell pulse rate 94 /min Vanessa Yatesby oxygen saturation, oximetry 97 % Vanessa Yatesby respiratory rate E&M 18 /min Vanessa Yatesby Body Mass Index (Ratio) 29.57 kg/m2 Jose L ruth Freeman weight E&M 175 [lb_av] Vanessa Freeman blood pressure, diastolic 60 mm[Hg] Pily Nelson blood pressure, systolic 122 mm[Hg] Valentina Nelson pulse rate 83 /min Nadya figueroa oxygen saturation, oximetry 98 % Nadya Nelson respiratory rate E&M 16 /min Ary Nelson Body Mass Index (Ratio) 29.57 kg/m2 Maria T Nelson weight E&M 175 [lb_av] Nadya figueroa blood pressure, diastolic 72 mm[Hg] Jimenez blood pressure, systolic 116 mm[Hg] Nick Villaseñorran pulse rate 96 /min Alexx Villaseñorran oxygen saturation, oximetry 99 % Alexx Villaseñorran respiratory rate E&M 16 /min Alexx Villaseñorran weight E&M 162 [lb_av] Alexx Villaseñorran blood pressure, diastolic 71 mm[Hg] Martinezran blood pressure, systolic 110 mm[Hg] Nick Villaseñorran pulse rate 95 /min Alexx Villaseñorran oxygen saturation, oximetry 99 % Alexx Villaseñorran respiratory rate E&M 16 /min Nickvalentine Villaseñorran weight E&M 168 [lb_av] Nickyean Barber blood pressure, diastolic, left arm 80 mm [Hg] Rama [place] blood pressure, systolic, left arm 149 mm [Hg] Rama [place] blood pressure, diastolic, right arm 85 m m[Hg] Rama [place] blood pressure, systolic, right arm 137 m m[Hg] Rama [place] blood pressure, diastolic 80 mm[Hg] Fe leilani Lizeth blood pressure, systolic 149 mm[Hg] Fel icia [place] pulse rate 82 /min Rama Lizeth oxygen saturation, oximetry 97 % Rama [place] respiratory rate E&M 16 /min Rama Lizeth weight E&M 173 [lb_av] Rama Lizeth blood pressure, diastolic 71 mm[Hg] Ulises Bermudez RN blood pressure, systolic 142 mm[Hg] Bret Bermudez RN pulse rate 64 /min Bret Bermudez RN oxygen saturation, oximetry 98 % Bret Bermudez RN respiratory rate E&M 16 /min Bret davey RN weight E&M 178 [lb_av] Bret Bermudez RN blood pressure, diastolic 86 mm[Hg] Ulises Bermudez ELI blood pressure, systolic 158 mm[Hg] Bret Bermudez RN pulse rate 79 /min Bret Bermudez RN oxygen saturation, oximetry 99 % Bret Bermudez RN respiratory rate E&M 16 /min Bret davey RN weight E&M 169 [lb_av] Bret Bermudez ELI Body Mass Index (Ratio) 29.85 kg/m2 Elmer Nieto MD height E&M 64.5 [in_i] Del Nieto MD blood pressure, diastolic 69 mm[Hg] Ulises ursula Bermudez ELI blood pressure, systolic 128 mm[Hg] Bret Bermudez ELI pulse rate 73 /min Bret Bermudez ELI oxygen saturation, oximetry 98 % Bret Bermudez ELI respiratory rate E&M 20 /min Bret davey RN weight E&M 176 [lb_av] Bret Bermudez ELI blood pressure, diastolic 80 mm[Hg] To conner [...] (low-density lipoprotein/high-d ensity lipoprotein) ratio 1.6 RATIO [facility] - 9 lipoprotein, beta, serum, point, quantitative, calculated 113.8 (?) [facility] 0.0 - 100.0 High 9 HDL cholesterol, serum 72.0 mg/dL [facility] 45.0 - 65.0 High 9 cholesterol, serum 229.0 [facility] 200.0 High 9 triglyceride, serum, fasting 216.0 mg/dL [facility] 0.[facility] - 150.0 High 9 urea nitrogen/creatinin e ratio, serum 25.0 [facility] - 9 Estimated Glomerular Filtration Rate (calc) 75.4 (?) [facility] - 9 chloride, serum 98.7 mmol/L [facility] 98.0 - 107.0 9 potassium, serum 4.7 mmol/L [facility] 3.5 - 5.1 9 sodium, serum 137.0 mmol/L [facility] 136.0 - 145.0 9 creatinine, serum 0.8 mg/dL [facility] 0.5 - 1.0 9 carbon dioxide, venous blood 25.0 mmol/L [facility] 23.0 - 31.0 9 calcium, serum 9.5 mg/dL [facility] 8.6 - 10.2 9 urea nitrogen, blood 20.0 mg/dL [facility] 8.0 - 23.0 9 blood glucose, random 110.0 mg/dL [facility] 74.0 - 99.0 High 9 red blood cell distribution width, size density 47.7 fL [facility] - 9 immature granulocytes, percentage of total cells, blood 0.1 % [facility] - 9 nucleated red blood cells as percent of blood leukocytes 0.0 % [facility] - 9 red blood cell (erythrocyte) count, per high power field 0.0 10*3/UL [facility] - 9 eosinophils as percent of blood leukocytes 1.3 % [facility] - 9 neutrophils as percent of blood leukocytes 67.7 % [facility] 9 Absolute Neutrophils 5.1 CELLS/UL [facility] 1.5 - 7.8 9 basophils as percent of blood leukocytes 0.5 % [facility] - 9 Absolute Basophils 0.0 CELLS/UL [employer] [...] capsule active Take once a day Sharonda Blanco B COMPLETE ORAL TABLET active Take every morning Sharonda Francis alprazolam 0.25 mg tablet active Take 1 tablet once a day as needed Sharonda Francis amlodipine 5 mg tablet completed Take 1 tablet once a day 09/22 - 11/13 Jd Steiner omeprazole 20 mg tablet,delayed release (/EC) completed once a day 09/22 - 07/15 [...] [facility]EC completed tid 10/17 - 12/17 Rama Lizeth PLAVIX TABLET completed 75 mg daily 10/17 - 10/19 Del Nieto MD aspirin 81 mg tablet,delayed release (DR/EC) active Take 1 once a day 09/22 Lizette Garay SOCIAL HISTORY Date Observation Value Provider drug use none Jd Steiner alcohol use no Jd Steiner smoking, year quit 2012 Jd almonte number of years as a smoker less than 10 years Jd Steiner cigarette use yes Jd Steiner smoking status Former smoker Jd Starr i drug use none Jd Steiner alcohol use no Jd Steiner smoking, year quit 2012 Jd almonte number of years as a smoker less than 10 years Jd Steiner cigarette use yes Jd Steiner smoking status Former smoker Jd Starr i drug use none Jd Steiner alcohol use no Jd Steiner smoking, year quit 2012 Jd almonte number of years as a smoker less than 10 years Jd Steiner cigarette use yes Jd Steiner smoking status Former smoker Jd Starr i social history E&M Patient patito rodriguez smokes. 2 pack per week P atient has been counseled to quit. A lcohol Use - no R egular Exercise - yes D rug Use - no S moking History: Conchita norris is a former smoker. Del Nieto MD social history reviewed E&M revi ewed - no changes required Del Nieto MD social history E&M Patient patito rodriguez smokes. 2 pack per week P atient has been counseled to quit. A lcohol Use - no R egular Exercise - yes D rug Use - no Smoking History: Conchita norris is a former smoker. Dj Osmelmikadahiana physical exercise, f requency, days per week no Lizette Garay caffeine use, averag e drinks per day yes Lizette Garay smoking, year quit 2012 Lizette carrillo number of years as a smoker less than 10 years Lizette Garay cigarette use yes Lizette whiting smoking status Former smoker Lizette Dulce rush social history reviewed E&M revi ewed - no changes required Jd Steiner social history E&M Patient patito rodriguez smokes. 2 pack per week P atient has been counseled to quit. A lcohol Use - no R egular Exercise - yes D rug Use - no Smoking History: P atnicki is a former smoker. Jd Steiner physical exercise, f requency, days per week no Sera Estes caffeine use, averag e drinks per day yes Sera Estes smoking, year quit 2012 Sera rivas number of years as a smoker less than 10 years Sera Estes cigarette use yes Sera Estes smoking status Former smoker Sera Estes social history reviewed E&M revi ewed - no changes required Jd Steiner social history reviewed E&M revi ewed - no changes required Jd Steiner social history E&M Patient patito rodriguez smokes. 2 pack per week Conchita norris has been counseled to quit. A lcohol Use - no R egular Exercise - yes D rug Use - no Smoking History: Conchita norris is a former smoker. Martin Bender physical exercise, f requency, days per week no Sharonda Blanco caffeine use, averag e drinks per day yes Sharonda Blanco smoking, year quit 2012 Sharonda holley number of years as a smoker less than 10 years Sharonda Francis cigarette use yes Sharonda bailon smoking status Former smoker Sharonda Pablo farooq social history reviewed E&M revi ewed - no changes required Del Nieto MD smoking status Former smoker Lola hein social history E&M Patient patito rodriguez smokes. 2 pack per week Conchita norris has been counseled to quit. A lcohol [...] History: P myrna is a former smoker. Amari Amaya social history reviewed E&M revi ewed - no changes required Amari Amaya physical exercise, f requency, days per week no Sharonda Blanco caffeine use, averag e drinks per day yes Sharonda Blanco smoking, year quit 2012 Sharonda holley number of years as a smoker less than 10 years Sharonda Blanco cigarette use yes Sharonda Yadi bailon smoking status Former smoker Sharonda Pablo farooq number of grandchildren Del Nieto MD T [...] exercise, f requency, days per week no Tonsha Tovar caffeine use, averag e drinks per day yes Tonsha Tovar smoking, year quit 2012 Tonsha Mo ss number of years as a smoker less than 10 years Tonsha Tovar cigarette use yes Tonsha Tovar smoking status Former smoker Tonsha Tovar social history reviewed E&M revi ewed - no changes required Del Nieto MD social history E&M Patient patito rodriguez smokes. 2 pack per week Conchita norris has been counseled to quit. A lcohol [...] a smoker less than 10 years Sharonda Francis cigarette use yes Sharonda Yadi bailon smoking status Former smoker Sharonda Pablo farooq social history reviewed E&M revi ewed - no changes required Del Nieto MD physical exercise, f requency, days per week no Sharonda Francis alcohol use, average drinks per day social basis only Sharonda Francis alcohol use no Sharonda Shahismael felton caffeine use, averag e drinks per day yes Sharonda Blanco drug use none Sharonda Shahismael felton smoking, year quit 2012 Sharonda holley number of years as a smoker less than 10 years Sharonda Blanco cigarette use yes Sharonda Shahjayda bailon smoking status Former smoker Sharondamiguelangel Shah capri social history reviewed E&M revi ewed - no changes required Del Nieto MD physical exercise, f requency, days per week no Mannie Seayam alcohol use, average drinks per day social basis only Mannie Hoffmann alcohol use no La Belle Hoffmann caffeine use, averag e drinks per day yes La Belle Hoffmann drug use none Mannie Hoffmann smoking, year quit 2012 Mannie Del Castillo laverne number of years as a smoker less than 10 years Mannie Hoffmann cigarette use yes Mannie Hoffmann smoking status Former smoker Mannie Seay am social history reviewed E&M revi ewed - no changes required Del Nieto MD physical exercise, f requency, days per week no Erica Trino alcohol use, average drinks per day social basis only Erica Trino alcohol use no Erica Trino caffeine use, averag e drinks per day yes Erica Trino drug use none Erica Jameson smoking, year quit 2012 Erica Alberta aldana number of years as a smoker less than 10 years Erica Jameson cigarette use yes Erica Jameson smoking status Former smoker Erica Jameson social history reviewed E&M revi ewed - no changes required Del Nieto MD physical exercise, f requency, days per week no Lizette Garay alcohol use, average drinks per day social basis only Lizette Garay alcohol use no Lizette orosco caffeine use, averag e drinks per day yes Lizette Garay drug use none Lizette orosco smoking, year quit 2012 Lizette carrillo number of years as a smoker less than 10 years Lizette Garay cigarette use yes Lizette whiting smoking status Former smoker Lizette Gonzalessaman rush social history reviewed E&M revi ewed - no changes required Kendal Winkler physical exercise, f requency, days per week no Kendal Winkler alcohol use, average drinks per day social basis only Kendal Winkler alcohol use no Kendal Winkler caffeine use, averag e drinks per day yes Kendal Winkler drug use none Kendal Winkler smoking, year quit 2012 Kendal Briggs number of years as a smoker less than 10 years Kendal Winkler cigarette use yes Kendal Winkler smoking status Former smoker Kendal Escobar nn social history reviewed E&M revi ewed - no changes required Del Nieto MD number of grandchildren Del Gupta MD Chance Medrano social history reviewed E&M revdahiana ewed - no changes required Del Nieto MD smoking, year quit 2012 Nadya Nelson cigarette use yes Nadya ambrocio physical exercise, f requency, days per week no Nadya Nelson alcohol use, average drinks per day social basis only Nadya Nelson alcohol use no Nadya figueroa caffeine use, averag e drinks per day yes Nadya Nelson drug use none Nadya mistryjim smoking status Former smoker Nadya Julio social history reviewed E&M reviewed Bret Bermudez RN social history reviewed E&M reviewed Bret Bermudez RN drug use none Del Nieto MD social history reviewed E&M reviewed Del Nieto MD quit smoking, stage quit Brte brand RN social history reviewed E&M reviewed Bret Bermudez RN social history reviewed E&M reviewed Bret Bermudez RN quit smoking, stage quit Del silver MD social history reviewed E&M reviewed Bret Bermudez RN physical exercise, f requency, days per week no [employer] caffeine use, averag e drinks per day yes [employer] alcohol use, average drinks per day social basis only [employer] number of years as a smoker less than 10 years [facility] smoking status Quit [employer] drug use no Del Nieto MD smoking/tobacco cess ation, patient education and counseling yes Del Nieto MD social history E&M Patient curre ntly smokes. 2 pack per week P atnicki has been counseled to quit. A lcohol Use - no R egular Exercise - yes D rug Use - no Del Nieto MD smoking status current Del Nieto MD FUNCTIONAL STATUS Date Observation Value Provider HRA, CV Assess/Plan, Angina (inactive) Management Plan continue current therapy Jd Ahmedzai HRA, CV Assess/Plan, Angina (inactive) Management Plan continue current therapy Dj Ahmedzai HRA, CV Assess/Plan, Angina (inactive) Management Plan continue current therapy Jd Ahmedzai HRA, CV Assess/Plan, Angina (inactive) Management Plan continue current therapy Jd Ahmedzai HRA, CV Assess/Plan, Angina (inactive) Management Plan continue current therapy Jd Ahmedzai HRA, CV Assess/Plan, Angina (inactive) Management Plan continue current therapy Jd Ahmedzai HRA, CV Assess/Plan, Angina (inactive) Management Plan continue current therapy Martin Bender HRA, CV Assess/Plan, Angina (inactive) Management Plan continue current therapy Lola Rodriguez HRA, CV Assess/Plan, Angina (inactive) Management Plan continue current therapy Amari Amaya HRA, CV Assess/Plan, Angina (inactive) Management Plan continue current therapy Del Nieto MD HRA, CV Assess/Plan, Angina (inactive) Management Plan continue current therapy Del Nieto MD HRA, CV Assess/Plan, Angina (inactive) Management Plan continue current therapy Del Nieto MD HRA, CV Assess/Plan, Angina (inactive) Management Plan continue current therapy Del Nieto MD HRA, CV Assess/Plan, Angina (inactive) Management Plan continue current therapy Del Nieto MD HRA, CV Assess/Plan, Angina (inactive) Management Plan continue current therapy Del Nieto MD HRA, CV Assess/Plan, Angina (inactive) Management Plan continue current therapy Del Nieto MD HRA, CV Assess/Plan, Angina (inactive) Management Plan schedule PCI Del Nieto MD HRA, CV Assess/Plan, Angina (inactive) Management Plan antianginal therapy Del Nieto MD MENTAL STATUS Date Observation Value Provider assessment of judgme nt and insight E&M Alert and oriented to time, place and person. Mood and affect are normal. Bret Bermudez RN assessment of judgme nt and insight E&M Alert and oriented to time, place and person. Mood and affect are normal. Bret Bermudez RN assessment of judgme nt and insight E&M Alert and oriented to time, place and person. Mood and affect are normal. Del Nieto MD assessment of judgme nt and insight E&M Alert and oriented to time, place and person. Mood and affect are normal. Bret Bermudez RN assessment of judgme nt and insight E&M Alert and oriented to time, place and person. Mood and affect are normal. Bret Bermudez RN assessment of judgme nt and insight E&M Alert and oriented to time, place and person. Mood and affect are normal. Bret Bermudez RN FAMILY HISTORY Family Member Condition Father [place] male <55 Mother Family History of Hy pertension: Father Family History of Co ronary Artery Disease: INSURANCE PROVIDERS Payer name Policy type / Coverage type Drayden red republican ID A[employer] MEDICARE ADVANTAGE HMO-POS HMO [id number] ADVANCE DIRECTIVES Name Date DISCUSSED - NO DECISION MADE TREATMENT PLAN Date Name Performer [id number],SDel MD [id number],Del Christianson MD [id number],Del Smith MD [id number],BDel MD [id number],BDel MD [id number],SJd i [id number],S, Jd medza i [id number],S, Jd medza i [id number],S, Jd medza i [id number],S, [id number], [facility] [id number],S, [facility] [id number],S, [facility] [id number],S, [facility] [id number],S, [facility] [id number],S, [facility] [id number],S, [facility] [id number],S, [facility] [id number],S, [facility] [id number],S, [facility] [id number],S, [facility] [id number],S, [facility] [id number],S, [facility] am [id number],S, [facility] am [id number],S, [facility] am [id number],S,Denies SOB [facility] [id number],S, H er updated medication list for this problem includes: Lipitor 40 Mg Tablet (Atorvastatin) ..... Take once a day [facility] [id number],S, H er updated medication list for this problem includes: Carvedilol 25 Mg Tablet (Carvedilol) ..... 1 tablet twice a day Aspirin 81 Mg Tablet,delayed Release (dr/ec) (Aspirin) ..... Take 1 once a day Lisinopril 40 Mg Tablet (Lisinopril) ..... 1 tablet once a day Amlodipine 5 Mg Tablet (Amlodipine) ..... Take 1 tablet once a day BP today: 136/80 Prior BP: 132/72 (11/05/2020) Labs Reviewed: C reat: 0.8 (01/28/2016) C hol: 229.0 (01/28/2016) HDL: 72.0 (01/28/2016) T.0 (01/28/2016) Martin Bender Cardiology Del Nieto MD Cardiology Del Nieto MD Cardiology: T he following medications were removed from the medication list: Amlodipine 5 Mg Tablet (Amlodipine) ..... Take 1 tablet once a day Her updated medication list for this problem includes: Amlodipine 10 Mg Tablet (Amlodipine) ..... Take 1 tablet by mouth daily Carvedilol 25 Mg Tablet (Carvedilol) ..... 1 tablet twice a day Aspirin 81 Mg Tablet,delayed Release (dr/ec) (Aspirin) ..... Take 1 once a day Lisinopril 40 Mg Tablet (Lisinopril) ..... 1 tablet once a day Del Nieto MD Cardiology:This visi t has been a part of the consistent, comprehensive, and ongoing management of the chronic medical condition(s) listed above for the patient. BP today: 152/80 P rior BP: 138/76 (05/15/2024) Labs Reviewed: C reat: 0.8 (01/28/2016) C hol: 229.0 (01/28/2016) HDL: 72.0 (01/28/2016) LDL: 113.8 (?) (01/28/2016) T.0 (01/28/2016) The following medications were removed from the medication list: Amlodipine 5 Mg Tablet (Amlodipine) ..... Take 1 tablet once a day Her updated medication list for this problem includes: Amlodipine 10 Mg Tablet (Amlodipine) ..... Take 1 tablet by mouth daily Carvedilol 25 Mg Tablet (Carvedilol) ..... 1 tablet twice a day Aspirin 81 Mg Tablet,delayed Release (dr/ec) (Aspirin) ..... Take 1 once a day Lisinopril 40 Mg Tablet (Lisinopril) ..... 1 tablet once a day Del Nieto MD Cardiology: T he following medications were removed from the medication list: Amlodipine 5 Mg Tablet (Amlodipine) ..... Take 1 tablet once a day Her updated medication list for this problem includes: Amlodipine 10 Mg Tablet (Amlodipine) ..... Take 1 tablet by mouth daily Carvedilol 25 Mg Tablet (Carvedilol) ..... 1 tablet twice a day Aspirin 81 Mg Tablet,delayed Release (dr/ec) (Aspirin) ..... Take 1 once a day Lisinopril 40 Mg Tablet (Lisinopril) ..... 1 tablet once a day Plavix 75 Mg Tablet (Clopidogrel) ..... 1 tablet once a day Del Nieto MD Cardiology: H er updated medication list for this problem includes: Carvedilol 25 Mg Tablet (Carvedilol) ..... 1 tablet twice a day Aspirin 81 Mg Tablet,delayed Release (dr/ec) (Aspirin) ..... Take 1 once a day Lisinopril 40 Mg Tablet (Lisinopril) ..... 1 tablet once a day Plavix 75 Mg Tablet (Clopidogrel) ..... 1 tablet once a day Amlodipine 5 Mg Tablet (Amlodipine) ..... Take 1 tablet once a day Jd Steiner Cardiology: H er updated medication list for this problem includes: Atorvastatin 80 Mg Tablet (Atorvastatin) ..... Take 1 tablet by mouth every day at bedtime Jd Steiner Cardiology: H er updated medication list for this problem includes: Carvedilol 25 Mg Tablet (Carvedilol) ..... 1 tablet twice a day Aspirin 81 Mg Tablet,delayed Release (dr/ec) (Aspirin) ..... Take 1 once a day Lisinopril 40 Mg Tablet (Lisinopril) ..... 1 tablet once a day Amlodipine 5 Mg Tablet (Amlodipine) ..... Take 1 tablet once a day [facility] Cardiology: H er updated medication list for this problem includes: Carvedilol 25 Mg Tablet (Carvedilol) ..... 1 tablet twice a day Aspirin 81 Mg Tablet,delayed Release (dr/ec) (Aspirin) ..... Take 1 once a day Lisinopril 40 Mg Tablet (Lisinopril) ..... 1 tablet once a day Amlodipine 5 Mg Tablet (Amlodipine) ..... Take 1 tablet once a day [facility]iology: H er updated medication list for this problem includes: Carvedilol 25 Mg Tablet (Carvedilol) ..... 1 tablet twice a day Aspirin 81 Mg Tablet,delayed Release (dr/ec) (Aspirin) ..... Take 1 once a day Lisinopril 40 Mg Tablet (Lisinopril) ..... 1 tablet once a day Amlodipine 5 Mg Tablet (Amlodipine) ..... Take 1 tablet once a day [facility] Cardiology: H er updated medication list for this problem includes: Lipitor 80 Mg Tablet (Atorvastatin) ..... Take once a day [facility] Cardiology: B P today: 152/84 P rior BP: 134/76 (05/18/2023) Labs Reviewed: C reat: 0.8 (01/28/2016) C hol: 229.0 (01/28/2016) HDL: 72.0 (01/28/2016) LDL: 113.8 (?) (01/28/2016) T.0 (01/28/2016) [facility] Del Nieto MD Cardiology Del Nieto MD Cardiology Del Nieto MD Cardiology Del Nieot MD Cardiology Del Nieto MD Cardiology Jd Ahmedzai Cardiology Jd Ahmedzai Cardiology Jd Ahmedzai Cardiology Jd Ahmedzai Cardiology Jd Ahmedzai Cardiology Jd Ahmedzai Cardiology Jd Ahmedzai Cardiology Jd Ahmedzai Cardiology Jd Ahmedzai Cardiology Jd Ahmedzai Cardiology Jd Ahmedzai Card[facility] Jd Ahmedzai Cardiology Jd Ahmedzai Cardiology Jd Ahmedzai Cardiology Jd Ahmedzai Cardiology Jd Ahmedzai Cardiology Jd Ahmedzai Cardiology [facility] Cardiology [facility] Cardiology [facility] Cardiology:Denies SOB [facility] Cardiology: H er updated medication list for this problem includes: Lipitor 40 Mg Tablet (Atorvastatin) ..... Take once a day [facility] Cardiology: H er updated medication list for this problem includes: Carvedilol 25 Mg Tablet (Carvedilol) ..... 1 tablet twice a day Aspirin 81 Mg Tablet,delayed Release (dr/ec) (Aspirin) ..... Take 1 once a day Lisinopril 40 Mg Tablet (Lisinopril) ..... 1 tablet once a day Amlodipine 5 Mg Tablet (Amlodipine) ..... Take 1 tablet once a day BP today: 136/80 P rior BP: 132/72 (11/05/2020) Labs Reviewed: C reat: 0.8 (01/28/2016) C hol: 229.0 (01/28/2016) HDL: 72.0 (01/28/2016) T.0 (01/28/2016) Martin Velásquezpooja Cardiology Follow up :Most recent lab work will be obtained from pt's PCP. Continue on Lipitor. Lola Rodriguez Cardiology Follow up Lola Jessica ett Cardiology Follow up Lola Giangl ett Cardiology Follow up Lolajanay Giangl ett Cardiology Follow up :BP control is satisfactory. Continue on antihypertensive medications. Lola Rodriguez Cardiology Follow up :Normal ech o 04/2020. Lola Gianglett Cardiology follow up Amari Shanicet Card[facility] follow [facility] Amari Amaya Cardiology Del Nieto MD Cardiology: B P today: 149/75 P rior BP: 130/70 (03/27/2019) Labs Reviewed: C reat: 0.8 (01/28/2016) C hol: 229.0 (01/28/2016) HDL: 72.0 (01/28/2016) T.0 (01/28/2016) Del Nieto MD Cardiology:No recurrence Del Nieto MD Cardiology Del Nieto MD Cardiology follow up Del rudolph MD Cardiology follow up Del rudolph MD Cardiology follow up Del rudolph MD Cardiology follow up Del rudolph MD Cardiology followup Del Nieto MD Cardiology followup Del Nieto MD Cardiology followup : B P today: 132/64 P rior BP: 130/68 (04/26/2017) Del Nieto MD Cardiology followup Del Nieto MD Cardiology Del Nieto MD Cardiology Del Nieto MD Cardiology Del Nieto MD Cardiology Del Nieto MD Cardiology Del Nieto MD Cardiology Follow up Toniya Sing ronni [facility] Cardiology Follow up Toniya Sing h Cardiology Follow up Toniya Sing h Cardiology Follow up Toniya Sing h Cardiology Follow up Toniya Sing h Cardiology Follow up Toniya Sing h Cardiology Follow up Toniya Sing h Cardiology Follow up Toniya Kana rudolph MD Cardiology Del Nieto MD Cardiology Del Nieto MD Cardiology Del Nieto MD Cardiology Del Nieto MD Cardiology Del Nieto MD Cardiology Del Nieto MD Cardiology Del Nieto MD Cardiology Del Nieto MD Cardiology Del Nieto MD Cardiology Del Nieto MD Cardiology Del Nieto MD Cardiology Del Nieto MD Cardiology Del Nieto MD follow up: H er updated medication list for this problem includes: Norvasc 10 Mg Tabs (Amlodipine besylate) ..... One tab. daily Aspirin 81 Mg Tabs (Aspirin) ..... One tab. daily Hydrochlorothiazide 12.5 Mg Tabs (Hydrochlorothiazide) ..... 1 tab fredy y Lisinopril 40 Mg Tabs (Lisinopril) ..... 1 tab daily BP today: 110/71 P rior BP: 149/80 (12/17/2009) Del Nieto MD follow up: T he following medications were removed from the medication list: Lipitor 10 Mg Tabs (Atorvastatin calcium) ..... Once a day Her updated medication list for this problem includes: Simvastatin 20 Mg Tabs (Simvastatin) ..... 1 tab daily BP today: 110/71 Prior BP: 149/80 (12/17/2009) Del Nieto MD follow up: T he following medications were removed from the medication list: Lipitor 10 Mg Tabs (Atorvastatin calcium) ..... Once a day Her updated medication list for this problem includes: Plavix 75 Mg Tabs (Clopidogrel bisulfate) ..... One tab. daily Norvasc 10 Mg Tabs (Amlodipine besylate) ..... One tab. daily Aspirin 81 Mg Tabs (Aspirin) ..... One tab. daily Simvastatin 20 Mg Tabs (Simvastatin) ..... 1 tab daily Lisinopril 40 Mg Tabs (Lisinopril) ..... 1 tab daily BP today: 110/71 Prior BP: 149/80 (12/17/2009) N uclear Stress Findings: EF - 27%. I nconclusive ECG criteria due to changes on baseline ECG. L arge reversible lateral wall defect consistent with ischemia in the left circumflex territory. (09/09/2007) C ardiac Cath: EF 55%. Patent stents in the mid LAD. Patent stent in the mid RCA and distal RCA. Long lesion of approx 80% is noted proximal to the lesion and which extends up to the RV branch. Normal LVSF. (12/28/2007) C ardiac Cath Comments: 2.75mm x 32mm Taxus medicated stent distal RCA (12/27/2007) C arotid Doppler/Duplex: normal: (11/09/2007) Del Nieto MD follow up: T he following medications were removed from the medication list: Lipitor 10 Mg Tabs (Atorvastatin calcium) ..... Once a day Her updated medication list for this problem includes: Plavix 75 Mg Tabs (Clopidogrel bisulfate) ..... One tab. daily Norvasc 10 Mg Tabs (Amlodipine besylate) ..... One tab. daily Aspirin 81 Mg Tabs (Aspirin) ..... One tab. daily Simvastatin 20 Mg Tabs (Simvastatin) ..... 1 tab daily Lisinopril 40 Mg Tabs (Lisinopril) ..... 1 tab daily BP today: 110/71 Prior BP: 149/80 (12/17/2009) N uclear Stress Findings: EF - 27%. I nconclusive ECG criteria due to changes on baseline ECG. L arge reversible lateral wall defect consistent with ischemia in the left circumflex territory. (09/09/2007) C ardiac Cath: EF 55%. Patent stents in the mid LAD. Patent stent in the mid RCA and distal RCA. Long lesion of approx 80% is noted proximal to the lesion and which extends up to the RV branch. Normal LVSF. (12/28/2007) C ardiac Cath Comments: 2.75mm x 32mm Taxus medicated stent distal RCA (12/27/2007) C arotid Doppler/Duplex: normal: (11/09/2007) Del Nieto MD follow up: H er updated medication list for this problem includes: Norvasc 10 Mg Tabs (Amlodipine besylate) ..... One tab. daily Aspirin 81 Mg Tabs (Aspirin) ..... One tab. daily Hydrochlorothiazide 12.5 Mg Tabs (Hydrochlorothiazide) ..... 1 tab fredy y Lisinopril 40 Mg Tabs (Lisinopril) ..... 1 tab daily Orders: E KG ([id number]) BP today: 110/71 P rior BP: 149/80 (12/17/2009) Del Nieto MD routine f/u : H er updated medication list for this problem includes: Plavix 75 Mg Tabs (Clopidogrel bisulfate) ..... One tab. daily Norvasc 10 Mg Tabs (Amlodipine besylate) ..... One tab. daily Aspirin 81 Mg Tabs (Aspirin) ..... One tab. daily Del Nieto MD routine f/u : H er updated medication list for this problem includes: Norvasc 10 Mg Tabs (Amlodipine besylate) ..... One tab. daily Aspirin 81 Mg Tabs (Aspirin) ..... One tab. daily BP today: 149/80 P rior BP: 142/71 (04/16/2009) Del Nieto MD routine f/u : H er updated medication list for this problem includes: Lipitor 10 Mg Tabs (Atorvastatin calcium) ..... Once a day Plavix 75 Mg Tabs (Clopidogrel bisulfate) ..... One tab. daily Norvasc 10 Mg Tabs (Amlodipine besylate) ..... One tab. daily Aspirin 81 Mg Tabs (Aspirin) ..... One tab. daily BP today: 149/80 Prior BP: 142/71 (04/16/2009) N uclear Stress Findings: EF - 27%. I nconclusive ECG criteria due to changes on baseline ECG. L arge reversible lateral wall defect consistent with ischemia in the left circumflex territory. (09/09/2007) C ardiac Cath: EF 55%. Patent stents in the mid LAD. Patent stent in the mid RCA and distal RCA. Long lesion of approx 80% is noted proximal to the lesion and which extends up to the RV branch. Normal LVSF. (12/28/2007) C ardiac Cath Comments: 2.75mm x 32mm Taxus medicated stent distal RCA (12/27/2007) C arotid Doppler/Duplex: normal: (11/09/2007) Del Nieto MD routine f/u : H er updated medication list for this problem includes: Lipitor 10 Mg Tabs (Atorvastatin calcium) ..... Once a day Plavix 75 Mg Tabs (Clopidogrel bisulfate) ..... One tab. daily Norvasc 10 Mg Tabs (Amlodipine besylate) ..... One tab. daily Aspirin 81 Mg Tabs (Aspirin) ..... One tab. daily BP today: 149/80 Prior BP: 142/71 (04/16/2009) N uclear Stress Findings: EF - 27%. I nconclusive ECG criteria due to changes on baseline ECG. L arge reversible lateral wall defect consistent with ischemia in the left circumflex territory. (09/09/2007) C ardiac Cath: EF 55%. Patent stents in the mid LAD. Patent stent in the mid RCA and distal RCA. Long lesion of approx 80% is noted proximal to the lesion and which extends up to the RV branch. Normal LVSF. (12/28/2007) C ardiac Cath Comments: 2.75mm x 32mm Taxus medicated stent distal RCA (12/27/2007) C arotid Doppler/Duplex: normal: (11/09/2007) Del Nieto MD routine echo prior: H er updated medication list for this problem includes: Lipitor 10 Mg Tabs (Atorvastatin calcium) ..... Once a day BP today: 158/86 Prior BP: 128/69 (04/03/2008) Del Nieto MD routine echo prior Del Nieto MD routine echo prior: H er updated medication list for this problem includes: Aspirin 325 Mg Tabs (Aspirin) ..... Take once daily Plavix 75 Mg Tabs (Clopidogrel bisulfate) ..... One tab. daily BP today: 158/86 Prior BP: 128/69 (04/03/2008) N uclear Stress Findings: EF - 27%. I nconclusive ECG criteria due to changes on baseline ECG. L arge reversible lateral wall defect consistent with ischemia in the left circumflex territory. (09/09/2007) C ardiac Cath: EF 55%. Patent stents in the mid LAD. Patent stent in the mid RCA and distal RCA. Long lesion of approx 80% is noted proximal to the lesion and which extends up to the RV branch. Normal LVSF. (12/28/2007) C ardiac Cath Comments: 2.75mm x 32mm Taxus medicated stent distal RCA (12/27/2007) Del Nieto MD routine echo prior: H er updated medication list for this problem includes: Aspirin 325 Mg Tabs (Aspirin) ..... Take once daily BP today: 158/86 P rior BP: 128/69 (04/03/2008) Del Nieto MD routine echo prior: H er updated medication list for this problem includes: Aspirin 325 Mg Tabs (Aspirin) ..... Take once daily Lipitor 10 Mg Tabs (Atorvastatin calcium) ..... Once a day Plavix 75 Mg Tabs (Clopidogrel bisulfate) ..... One tab. daily BP today: 158/86 Prior BP: 128/69 (04/03/2008) N uclear Stress Findings: EF - 27%. I nconclusive ECG criteria due to changes on baseline ECG. L arge reversible lateral wall defect consistent with ischemia in the left circumflex territory. (09/09/2007) C ardiac Cath: EF 55%. Patent stents in the mid LAD. Patent stent in the mid RCA and distal RCA. Long lesion of approx 80% is noted proximal to the lesion and which extends up to the RV branch. Normal LVSF. (12/28/2007) C ardiac Cath Comments: 2.75mm x 32mm Taxus medicated stent distal RCA (12/27/2007) C arotid Doppler/Duplex: normal: (11/09/2007) Del Nieto MD office visit: T he following medications were removed from the medication list: Nifedical Xl Tb24 (Nifedipine tb24) ..... 60 mg Her updated medication list for this problem includes: Aspirin 325 Mg Tabs (Aspirin) ..... Take once daily Benicar Hct 20-12.5 Mg Tabs (Olmesartan medoxomil-hctz) ..... Qd BP today: 128/69 Prior BP: 176/80 (10/18/2007) N uclear Stress Findings: EF - 27%. I nconclusive ECG criteria due to changes on baseline ECG. L arge reversible lateral wall defect consistent with ischemia in the left circumflex territory. (09/09/2007) C ardiac Cath: EF 55%. Patent stents in the mid LAD. Patent stent in the mid RCA and distal RCA. Long lesion of approx 80% is noted proximal to the lesion and which extends up to the RV branch. Normal LVSF. (12/28/2007) C ardiac Cath Comments: 2.75mm x 32mm Taxus medicated stent distal RCA (12/27/2007) Del Nieto MD office visit: T he following medications were removed from the medication list: Nifedical Xl Tb24 (Nifedipine tb24) ..... 60 mg Her updated medication list for this problem includes: Aspirin 325 Mg Tabs (Aspirin) ..... Take once daily Lipitor 10 Mg Tabs (Atorvastatin calcium) BP today: 128/69 Prior BP: 176/80 (10/18/2007) N uclear Stress Findings: EF - 27%. Inconclusive ECG criteria due to changes on baseline ECG. L arge reversible lateral wall defect consistent with ischemia in the left circumflex territory. (09/09/2007) C ardiac Cath: EF 55%. Patent stents in the mid LAD. Patent stent in the mid RCA and distal RCA. Long lesion of approx 80% is noted proximal to the lesion and which extends up to the RV branch. Normal LVSF. (12/28/2007) C ardiac Cath Comments: 2.75mm x 32mm Taxus medicated stent distal RCA (12/27/2007) C arotid Doppler/Duplex: normal: (11/09/2007) Del Nieto MD office visit Del Nieto MD Date Name Lipoprotein (a) LIPID PANEL COMPREHENSIVE METABO LIC PANEL, W/EGFR Complete Echo Carotid Duplex Bilat eral Complete Echo Stress Regadenoson PROTHROMBIN TIME WIT H INR CBC (INCLUDES DIFF/P LT) LIPID PANEL BASIC METABOLIC PANE L W/EGFR LIPID PANEL Sleep Study Complete Echo HISTORY OF PROCEDURES Procedure Date Procedure Name Provider Procedure Notes S tatus Complex e/m visit add on Del Nieto MD completed EKG Del Nieto MD completed Complex e/m visit add on Del Nieto MD completed EKG Del Nieto MD completed EKG Del Nieto MD completed EKG Del Nieto MD completed EKG Del Nieto MD completed Regadenoson, 4 units Del Nieto MD completed Cardiolite, 2 units Del Nieto MD completed SPECT Images Del Nieto MD complet ed Stress EKG Del Nieto MD completed EKG Del Nieto MD completed EKG Del Nieto MD completed SNOMED-CT: 24197902 Physical Exam, Performed: Pulse Exam of Foot Del Nieto MD completed EKG Del Nieto MD completed SNOMED-CT: 446793021 [id number] Current Medications Documented Del Nieto MD completed SNOMED-CT: 37470248 Physical Exam, Performed: Pulse Exam of Foot Del Nieto MD completed SNOMED-CT: 643552772 [id number] Current Medications Documented Del Nieto MD completed SNOMED-CT: [id number] Physical Exam, Performed: Pulse Exam of Foot Del Nieto MD completed SNOMED-CT: 245115477 [id number] Current Medications Documented Del Nieto MD completed SNOMED-CT: 24625403 Physical Exam, Performed: Pulse Exam of Foot Del Nieto MD completed SNOMED-CT: 710281475 [id number] Current Medications Documented Del Nieto MD completed SNOMED-CT: 17939576 Physical Exam, Performed: Pulse Exam of Foot Del Nieto MD completed SNOMED-CT: [id number] [id number] Current Medications Documented Del Nieto MD completed Stress EKG Nahid Shaw MD complete d Cardiolite, 2 units Del Nieto MD completed SPECT Images Derrick Stout MD completed SNOMED-CT: 85226906 Physical Exam, Performed: Pulse Exam of Foot Del Nieto MD completed EKG Del Nieto MD completed SNOMED-CT: 046956252 403815 Current Medications Documented Del Nieto MD completed EKG Del Nieto MD completed EKG Del Nieto MD completed
[2024-12-16 12:55] VITALS: BP 131/60; PULSE 76; RESP 18; O2SAT 97
--- OUTSIDE RECORDS SUMMARY | 2024-12-16 13:02 | XMS_ITS | CONTINUITY OF CARE DOCUMENT ---
Author Name isael, isael Address Unknown Organization [facility] Address [address] [address] [facility] [address] [place] [address] Phone [phone] Care Team Providers Care Acid Condenser Name Role Phone Gerson SOFIA, Del Unavailable KENDAL CABA MD Unavailable [phone] PROBLEMS Condition Status Date Provider Notes ABNORMAL [...] In-person encounter Office Visit Del Nieto MD [facility] Cardiology examination - In-person encounter Office Visit Del Nieto MD [facility] - In-person encounter Office Visit Del Nieto MD [facility] CAD-STENT 12/17 TAXUS RCA, ISR RCA stent, 2016HTN--echo ef nl, 05/2023HypercholesterolemiaHyperli pidemia - In-person encounter Office Visit Del Nieto MD [facility] - In-person encounter Office Visit Del Nieto MD [facility] Back pain - In-person encounter Office Visit Del Nieto MD [facility] Arthritis - In-person encounter Office Visit Del Nieto MD [facility] HTN--echo ef nl, 05/2023 - In-person encounter Office Visit Del Nieto MD [facility] - In-person encounter Office Visit Del Nieto MD [facility] - In-person encounter Office Visit Del Nieto MD [facility] - In-person encounter Office Visit Del Nieto MD [facility] CAD-STENT 12/17 TAXUS RCA, ISR RCA stent, 2016Chest pain-type to be determined - In-person encounter Office Visit Del Nieto MD [facility] - In-person encounter Office Visit Del Nieto MD [facility] HTN ESSENTIAL - In-person encounter Office Visit Del Nieto MD [facility] - In-person encounter Office Visit Del Nieto MD [facility] - In-person encounter Office Visit Del Nieto MD [facility] - In-person encounter Office Visit Del Nieto MD [facility] CAD-STENT 12/17 TAXUS RCA, ISR RCA stent, 2015 - In-person encounter Office Visit Del Nieto MD [facility] CAD-STENT 12/17 TAXUS RCA, ISR RCA stent, 2016CAD-05/20 NUC NL EF 41 - In-person encounter Office Visit Del Nieto MD [facility] HypercholesterolemiaShortness of breath - In-person encounter Office Visit Del Nieto MD [facility] - In-person encounter Office Visit Del Nieto MD [facility] - In-person encounter Office Visit Del Nieto MD [facility] - In-person encounter Office Visit Del Nieto MD [facility] ABNORMAL EKG-10/16 ECHO EF 65 - In-person encounter Office Visit Del Nieto MD [facility] Hypercholesterolemia - In-person encounter Office Visit Del Nieto MD [facility] CAD-STENT 12/17 TAXUS RCA, ISR RCA [...] blood pressure, diastolic 70 mm[Hg] Tu rri Bridgetteeldjazmní blood pressure, systolic 142 mm[Hg] Linda thompson [...] blood pressure, systolic 136 mm[Hg] Ember means [place] pulse rate 77 /min Sharonadmiguelangel Augustine l respiratory rate E&M 16 /min [...] respiratory rate E&M 16 /min Lizette G sawyerenenfelder pulse rate 81 /min Lizette Christianuenenfe lder [...] Elmer Nieto MD pulse rate 84 /min [facility] blood pressure, diastolic 75 mm[Hg] To [facility] blood pressure, systolic 149 mm[Hg] Ton [facility] respiratory rate E&M 16 /min [facility] oxygen saturation, oximetry 97 % [facility] weight E&M 173 [lb_av] [facility] height E&M 64.5 [in_i] [facility]ha Tovar Body Mass Index (Ratio) 29.91 kg/m2 [...] MD blood pressure, resting Yes Ashok carrillo Garrett blood pressure, diastolic 68 mm[Hg] Cordell morales Garrett blood pressure, systolic 130 mm[Hg] Anna Marie greene Garrett oxygen saturation, oximetry 98 % Mannie Garrett respiratory rate E&M 16 /min [facility] 83 /min [facility] weight E&M 173 [lb_av] Mannie Garrett height E&M 64.5 [in_i] Mannie Garrett Body Mass Index (Ratio) 29.06 kg/m2 Elmer Nieto MD blood pressure, cuff size regular Kylah Trino blood pressure, diastolic 70 mm[Hg] Yanet fishman Trino blood pressure, systolic 130 mm[Hg] [...] manuel pulse rate 72 /min Lizette Thomas [facility] weight E&M 176 [lb_av] Lizette Thomas [facility] height E&M 64.5 [in_i] Lizette Thomas [facility] blood pressure, diastolic 80 mm[Hg] Me colon [...] Index (Ratio) 29.57 kg/m2 Jose L ruth Aleppo weight E&M 175 [lb_av] Vanessa Aleppo blood pressure, diastolic 60 mm[Hg] Pily Nelson blood pressure, systolic 122 mm[Hg] Valentina Nelson pulse rate 83 /min Nadya figueroa oxygen saturation, oximetry 98 % Nadya Nelson respiratory rate E&M 16 /min Ary Nelson Body Mass Index (Ratio) 29.57 kg/m2 Maria T Nelson weight E&M 175 [lb_av] Ndaya figueroa blood pressure, diastolic 72 mm[Hg] Jimenez [...] diastolic, left arm 80 mm [Hg] Rama Muse blood pressure, systolic, left arm 149 mm [Hg] Rama Muse blood pressure, diastolic, right arm 85 m m[Hg] Rama Muse blood pressure, systolic, right arm 137 m m[Hg] Rama Muse blood pressure, diastolic 80 mm[Hg] Fe leilani Lizeth blood pressure, systolic 149 mm[Hg] Fel icia Muse pulse rate 82 /min Rama Lizeth oxygen saturation, oximetry 97 % Rama Muse respiratory rate E&M 16 /min Rama Lizeth [...] davey RN weight E&M 176 [lb_av] Bret Bremudez ELI blood pressure, diastolic 80 mm[Hg] To [...] 65.0 High 9 cholesterol, serum 229.0 [facility]/dL [facility] - 200.0 High 9 triglyceride, serum, fasting 216.0 mg/dL [facility] 0.[facility] - 150.0 High 9 urea nitrogen/creatinin e ratio, serum 25.0 [facility] - 9 Estimated Glomerular Filtration Rate (calc) 75.4 (?) [facility] 59[facility] - 9 chloride, serum 98.7 mmol/L [facility] 98.0 - 107.0 9 potassium, serum 4.7 mmol/L [facility] 3.5 - 5.1 9 sodium, serum 137.0 mmol/L [facility] 136.0 - 145.0 9 creatinine, serum 0.8 mg/dL [facility] 0.5 - 1.0 9 carbon dioxide, venous blood 25.0 mmol/L [facility] 23.0 - 31.0 9 calcium, serum 9.5 mg/dL [facility] 8.6 - 10.2 9 urea nitrogen, blood 20.0 mg/dL [facility] 8.0 - 23.0 9 blood glucose, random 110.0 mg/dL [facility] 74.0 - 99.0 High 9 red blood cell distribution width, size density 47.7 fL [facility] - 9 immature granulocytes, percentage of total cells, blood 0.1 % [facility] - 9 nucleated red blood cells as percent of blood leukocytes 0.0 % [facility] - 9 red blood cell (erythrocyte) count, per high power field 0.0 10*3/UL [facility] - 9 eosinophils as percent of blood leukocytes 1.3 % [facility] - 9 neutrophils as percent of blood leukocytes 67.7 % [facility] 9 Absolute Neutrophils 5.1 CELLS/UL [facility] 1.5 - 7.8 9 basophils as percent of blood leukocytes 0.5 % [facility] - 9 Absolute Basophils 0.0 CELLS/UL [...] MD meloxicam 7.5 mg tablet active Jd Stiener omeprazole 20 mg capsule,delayed release(DR/EC) completed - [...] Conchita norris is a former smoker. Jd Osmelmikadahiana physical exercise, f requency, days per [...] 10 years Sharonda Blanco cigarette use yes Sharnoda Shahjayda bailon smoking status Former smoker Sharondamiguelangel Shah capri social history reviewed E&M revi ewed - no changes required Del Nieto MD physical exercise, f requency, days per week no Mannie Seayam alcohol use, average drinks per day social basis only Mannie Hoffmann alcohol use no [place] Hoffmann caffeine use, averag e drinks per day yes [place] Hoffmann drug use none Mannie Hoffmann smoking, [...] Del Nieto MD quit smoking, stage quit Bret brand RN social history reviewed E&M reviewed [...] RN FAMILY HISTORY Family Member Condition Father MA male <55 Mother Family History of Hy pertension: Father Family History of Co ronary Artery Disease: INSURANCE PROVIDERS Payer name Policy type / Coverage type [place] red libertarian ID AARP MEDICARE ADVANTAGE HMO-POS HMO [id number] ADVANCE DIRECTIVES Name Date DISCUSSED - NO DECISION MADE TREATMENT PLAN Date Name Performer [id number],SDel MD [id number],Del Christianson MD [id number],Del Smith MD [id number],BDel MD [id number],BDel MD [id number],SJd i [id number],S, Jd medza i [id number],S, Jd medza i [id number],S, Jd medza i [id number],S, [facility] [id number],S, [facility] [id number],S, [facility] [id number],S, [facility] [id number],S, [facility] [id number],S, [facility] [id number],S, [facility] [id number],S, [facility] [id number],S, [facility] [id number],S, [facility] [id number],S, [facility] [id number],S, [facility] [id number],S, [facility] [id number],S, [facility] am [id number],S, [facility] am [id number],S, [facility] am [id number],S,Denies SOB [facility] [id number],S, H er updated medication list for this problem includes: Lipitor 40 Mg Tablet (Atorvastatin) ..... Take once a day [facility] [id number],S, H er updated medication list for this [...] ..... Take 1 tablet once a day [facility]: H er updated medication list for this problem includes: Carvedilol 25 Mg Tablet (Carvedilol) ..... 1 tablet twice a day Aspirin 81 Mg Tablet,delayed Release (dr/ec) (Aspirin) ..... Take 1 once a day Lisinopril 40 Mg Tablet (Lisinopril) ..... 1 tablet once a day Amlodipine 5 Mg Tablet (Amlodipine) ..... Take 1 tablet once a day [facility]: H er updated medication list for this problem includes: Carvedilol 25 Mg Tablet (Carvedilol) ..... 1 tablet twice a day Aspirin 81 Mg Tablet,delayed Release (dr/ec) (Aspirin) ..... Take 1 once a day Lisinopril 40 Mg Tablet (Lisinopril) ..... 1 tablet once a day Amlodipine 5 Mg Tablet (Amlodipine) ..... Take 1 tablet once a day [facility]: H er updated medication list for this problem includes: Lipitor 80 Mg Tablet (Atorvastatin) ..... Take once a day [facility]: B P today: 152/84 P rior BP: 134/76 (05/18/2023) Labs Reviewed: C reat: 0.8 (01/28/2016) C hol: 229.0 (01/28/2016) HDL: 72.0 (01/28/2016) LDL: 113.8 (?) (01/28/2016) T.0 (01/28/2016) [facility] Del Nieto MD Cardiology Del Nieto MD Cardiology Del Nieto MD Cardiology Del Nieto MD Cardiology Del Nieto MD Cardiology Jd Ahmedzai Cardiology Jd Ahmedzai Cardiology Jd Ahmedzai Cardiology Jd Ahmedzai Cardiology Jd Ahmedzai Cardiology Jd Ahmedzai Cardiology Jd Ahmedzai Cardiology Jd Ahmedzai Cardiology Jd Ahmedzai Cardiology Jd Ahmedzai Cardiology Jd Ahmedzai Cardiology Jd Ahmedzai Cardiology Jd Ahmedzai Cardiology Jd Ahmedzai Cardiology Jd Ahmedzai Cardiology Jd Ahmedzai Cardiology Jd Ahmedzai Cardiology [facility]:Denies SOB [facility]: H er updated medication list for this problem includes: Lipitor 40 Mg Tablet (Atorvastatin) ..... Take once a day [facility]: H er updated medication list [...] up Amari Shanicet Cardiology follow up [facility] follow up Amari Amaya Cardiology Del Nieto MD Cardiology: B P today: 149/75 P rior BP: 130/70 (03/27/2019) Labs Reviewed: C reat: 0.8 (01/28/2016) C hol: 229.0 (01/28/2016) HDL: 72.0 (01/28/2016) T.0 (01/28/2016) Del Nieto MD Cardiology:No recurrence Del Nieto MD Cardiology Del Nieto MD Cardiology follow up Dle rudolph MD Cardiology follow up Del rudolph [...] ..... 1 tab daily Orders: E KG ([id number]) BP today: 110/71 P rior BP: 149/80 [...] Del Nieto MD completed Cardiolite, 2 units Dle Nieto MD completed SPECT Images Del Nieto MD complet ed Stress EKG Del Nieto MD completed EKG Del Nieto MD completed EKG Del Nieto MD completed SNOMED-CT: 04724556 Physical Exam, Performed: Pulse Exam of Foot Del Nieto MD completed EKG Del Nieto MD completed SNOMED-CT: 492190852 900889 Current Medications Documented Del Nieto MD completed SNOMED-CT: 10142588 Physical Exam, Performed: Pulse Exam of Foot Del Nieto MD completed SNOMED-CT: 069467584 548368 Current Medications Documented Del Nieto MD completed SNOMED-CT: 32857796 Physical Exam, Performed: Pulse Exam of Foot Del Nieto MD completed SNOMED-CT: 837569174 862234 Current Medications Documented Del Nieto MD completed SNOMED-CT: 60931634 Physical Exam, Performed: Pulse Exam of Foot Del Nieto MD completed SNOMED-CT: 814456672 917113 Current Medications Documented Del Nieto MD completed SNOMED-CT: 62885682 Physical Exam, Performed: Pulse Exam of Foot Del Nieto MD completed SNOMED-CT: 749321093 483335 Current Medications Documented Del Nieto MD completed Stress EKG Nahid Shaw MD complete d Cardiolite, 2 units Del Nieto MD completed SPECT Images Derrick Stout MD completed SNOMED-CT: 67426445 Physical Exam, Performed: Pulse Exam of Foot Del Nieto MD completed EKG Del Nieto MD completed SNOMED-CT: 525503973 007534 Current Medications Documented Del Nieto MD completed EKG Del Nieto MD completed EKG Del Nieto MD completed
[2024-12-16 13:20] VITALS: BP 131/53; PULSE 74; RESP 20; O2SAT 96
[2024-12-16 13:40] LABS: Basophils Percent Auto 0.3 % (0.2-1.2); Eosinophils Absolute Auto 0.2 K/mm3 (0-0.3); Eosinophils Percent Auto 1.7 % (0-4.4); Hematocrit 35.3 % (37.0-47.0); Hemoglobin 11.9 g/dL (12.0-15.0); Immature Granulocyte Absolute 0.03 K/mm3 (0.00-0.031); Immature Granulocyte Percent A 0.3 % (0-0.5); Lymphocytes Absolute Auto 2.43 K/mm3 (0.9-3.2); Lymphocytes Percent Auto 28.2 % (18.3-44.2); Mean Corpuscular HGB Conc 33.7 g/dl (32-36); Mean Corpuscular Volume 88.9 fl (80-100); Mean Platelet Volume 9.2 fl (7.4-10.4); Monocytes Percent Auto 11.7 % (2.6-8.5); Neutrophils Percent Auto 57.8 % (45.5-73.1); Platelet Count Result 246 k/mm3 (150-375); Red Blood Count 3.97 M/mm3 (4.2-5.4); Red Cell Distribution Width 12.1 % (11.5-14.5); White Blood Count 8.6 K/mm3 (4.5-10.0)
[2024-12-16 13:42] LABS: Alanine Aminotransferase 15 U/L (6-35); Albumin Level 3.8 g/dL (3.5-5.1); Alkaline Phosphatase 76 U/L (38-126); Anion Gap 7 mmol/L (4-12); Aspartate Amino Transferase 27 U/L (14-36); Bilirubin,Total 0.5 mg/dL (0.2-1.3); Blood Urea Nitrogen 15 mg/dL (7-17); Carbon Dioxide 25 mmol/L (22-30); Chloride 101 mmol/L (98-107); Estimated CRCL calculation 48 ml/min; Estimated Glomerular Filt Rate > 60; Glucose 91 mg/dL (65-110); Lipase 58 U/L (23-300); Sodium 133 mmol/L (137-145); Total Protein 6.4 g/dL (6.3-8.2)
--- NOTE | 2024-12-16 13:42 | ED_ITS ---
HPI - General Adult General Chief complaint: Nausea/Vomiting/Diarrhea Stated complaint: diarrhea Time Seen by Provider: 12/16/24 12:49 History of Present Illness HPI narrative: 79-year-old female presented to the emergency department for evaluation for multiple weeks of diarrhea. Patient does report some associated upper abdominal pain. Patient states she did have some dark stool yesterday. Patient denies any current abdominal pain. Patient states she did try some Kaopectate for this with no improvement. Patient states she has not tried Imodium as it does not work for previous episodes of diarrhea. Emergency department patient appears to be in no distress. Related Data Home Medications ?Medication ?Instructions ?Recorded ?Confirmed ?Last Taken ?Type calcium 600 mg (as 1 tablet PO BID 06/22/24 11/14/24 Unknown History carbonate)-vitamin D3 10 mcg (400 unit) tablet mecobalamin (vitamin B12) 1,000 1,000 mcg PO DAILY 06/22/24 11/14/24 Unknown History mcg lozenges aspirin 81 mg chewable tablet 81 mg PO DAILY 11/14/24 11/14/24 Unknown History (Aspirin Childrens) Allergies Allergy/AdvReac Type Severity Reaction Status Date / Time No Known Allergies Allergy Verified 12/16/24 13:19 Review of Systems 2 Review of Systems: All systems reviewed & are unremarkable except as noted in HPI and below PMFSH Past Medical History Medical History Presence of stent in coronary artery in patient with coronary artery disease Hypertension Ulcerative colitis Surgical History Surgical History Hx of heart artery stent x3 H/O hysterectomy for benign disease Family History Family History Father Heart problem Social History Social History Smoking status: Former smoker Tobacco type: cigarettes Alcohol intake: current Alcohol use details: Very rarely Substance use: never Substance use type: does not use Living arrangements: alone Exam 2 Narrative: APPEARANCE: Well appearing, no pain, no distress, well-nourished. HEAD: normocephalic, atraumatic. EYES: PERRLA/EOMI, conjunctivae clear. NOSE: Normal no drainage EARS:TMS clear with good light reflex. THROAT: Pharynx clear, no exudate. NECK: Supple. No adenopathy, no masses. RESPIRATORY: Airway patent, respirations nonlabored. Clear to auscultation bilaterally, no rales, rhonchi, wheezing. CARDIOVASCULAR: Regular rate and rhythm without murmurs rubs or gallops. ABDOMINAL: Soft, nontender, nondistended, normal bowel sounds MUSCULOSKELETAL: Moves all extremities. Strength/ROM intact, No edema, No calf tenderness. NEURO: Alert. Cranial nerves II through XII intact. SKIN: Warm, dry. Normal Color Rectal exam: Hemoccult negative on the digital rectal exam Course Vital Signs Vital signs: Vital Signs Pulse Rate 76 12/16/24 12:55 Respiratory Rate 18 12/16/24 12:55 Blood Pressure 131/60 12/16/24 12:55 Pulse Oximetry 97 12/16/24 12:55 Oxygen Delivery Room Air 12/16/24 12:55 Pulse Rate 77 12/16/24 16:55 Respiratory Rate 18 12/16/24 16:55 Blood Pressure 126/65 12/16/24 16:55 Pulse Oximetry 97 12/16/24 16:55 Oxygen Delivery Room Air 12/16/24 12:55 Medical Decision Making MDM Narrative Medical decision making narrative: 79-year-old female presented emergency department for evaluation for diarrhea. Patient is currently afebrile with no leukocytosis and hemoglobin of 11.9. Patient has an INR of 1.1. Patient's potassium was low at 3.0 and this was repleted with both 20 mEq IV and 40 mEq p.o. patient's C diff was negative, UA was negative for infection. CT scan showed mild esophagitis/gastritis with gastric wall thickening versus pseudothickening from incomplete distention. Consider referral for endoscopy. Sigmoid wall edema and thickening, likely representing infectious, inflammatory, or ischemic colitis. Possible cystitis, correlate with urinalysis. Patient was updated results of her workup. Patient was comfortable with started on a clear liquid diet for the next few days and having close outpatient follow- up. Differential Diagnosis Differential Diagnosis: Colitis, diverticulitis, UTI, dehydration Vital Signs Vital Signs: Vital Signs Pulse Rate 76 12/16/24 12:55 Respiratory Rate 18 12/16/24 12:55 Blood Pressure 131/60 12/16/24 12:55 Pulse Oximetry 97 12/16/24 12:55 Oxygen Delivery Room Air 12/16/24 12:55 Pulse Rate 77 12/16/24 16:55 Respiratory Rate 18 12/16/24 16:55 Blood Pressure 126/65 12/16/24 16:55 Pulse Oximetry 97 12/16/24 16:55 Oxygen Delivery Room Air 12/16/24 12:55 Lab Data Lab results reviewed: Yes I reviewed the patient's lab results. 12/16/24 13:21 12/16/24 13:21 Labs: Lab Results 12/16/24 12/16/24 12/16/24 Range/Units 13:21 13:50 16:38 WBC 8.6 (4.5-10.0) K/mm3 RBC 3.97 L (4.2-5.4) M/mm3 Hgb 11.9 L (12.0-15.0) g/dL Hct 35.3 L (37.0-47.0) % MCV 88.9 (80-100) fl MCH 30.0 (26-34) pg MCHC 33.7 (32-36) g/dl RDW 12.1 (11.5-14.5) % Plt Count 246 (150-375) k/mm3 MPV 9.2 (7.4-10.4) fl Immature Gran % (Auto) 0.3 (0-0.5) % Neut % (Auto) 57.8 (45.5-73.1) % Lymph % (Auto) 28.2 (18.3-44.2) % [place] % (Auto) 11.7 H (2.6-8.5) % Eos % (Auto) 1.7 (0-4.4) % Baso % (Auto) 0.3 (0.2-1.2) % Lymph # (Auto) 2.43 (0.9-3.2) K/mm3 [place] # (Auto) 1.0 H (0.1-0.6) K/mm3 Eos # (Auto) 0.2 (0-0.3) K/mm3 Baso # (Auto) 0.0 (0.0-0.1) K/mm3 Abs Immat Gran (auto) 0.03 (0.00-0.031) K/mm3 Absolute Neuts (auto) 5.0 (1.3-6.7) K/mm3 Absolute Nucleated RBC 0.000 (0.0-0.012) K/mm3 Nucleated RBC % 0.0 (0.0-0.2) % PT 14.7 (11.1-14.7) Seconds INR 1.1 APTT 30.6 (22.3-36.8) Seconds Sodium 133 L (137-145) mmol/L Potassium 3.0 L (3.4-5.0) mmol/L Chloride 101 (98-107) mmol/L Carbon Dioxide 25 (22-30) mmol/L Anion Gap 7 (4-12) mmol/L BUN 15 (7-17) mg/dL Creatinine 0.65 L (0.7-1.0) mg/dL Estim Creat Clear Calc 48 ml/min Estimated GFR > 60 (59 - ) Glucose 91 (65-110) mg/dL Lactic Acid < 0.5 L (0.7-2.0) mmol/L Calcium 9.0 (8.4-10.2) mg/dL Total Bilirubin 0.5 (0.2-1.3) mg/dL AST 27 (14-36) U/L ALT 15 (6-35) U/L Alkaline Phosphatase 76 (38-126) U/L Total Protein 6.4 (6.3-8.2) g/dL Albumin 3.8 (3.5-5.1) g/dL Lipase 58 (23-300) U/L Urine Color Yellow (Yellow) Urine Appearance Clear (Clear) Urine pH 6.0 (5.0-9.0) Ur Specific [place] 1.042 H (1.001-1.035) Urine Protein Negative (Negative) mg/dL Urine Glucose (UA) Negative (Negative) mg/dL Urine Ketones Negative (Negative) mg/dL Ur Blood (Man) Negative (Negative) Urine Nitrate Negative (Negative) Urine Bilirubin Negative (Negative) Urine Urobilinogen 0.2 (<2.0) mg/dL Leukocyte Esterase Rfl Negative (Negative) YUN/UL C. difficile (PCR) Negative (NEGATIVE) Imaging Data Radiologist's impression: Impressions Abdomen/Pelvis CT 12/16/24 14:13 IMPRESSION: Mild esophagitis/gastritis with gastric wall thickening versus pseudothickening from incomplete distention. Consider referral for endoscopy. Sigmoid wall edema and thickening, likely representing infectious, inflammatory, or ischemic colitis. Possible cystitis, correlate with urinalysis. Discharge Plan Discharge Clinical Impression: Diarrhea Patient Disposition: Home Condition: Stable Instructions: Antibiotic Form, Clear Liquid Diet (ED), Acute Diarrhea (ED) Additional Instructions: Clear liquid diet for the next 1-3 days. Advance to a bland diet as tolerated. Have close follow-up with your primary care physician. Your CT scan did show evidence of gastritis and esophagitis you should have close follow-up with GI. Have close follow-up with your primary care physician. Patient Language: Yoruba Prescriptions: No Action calcium carbonate-vitamin D3 600 mg-10 mcg (400 unit) tablet 1 tablet PO BID mecobalamin (vitamin B12) 1,000 mcg lozenge 1,000 mcg PO DAILY Rx Instructions: allow to dissolve in mouth OR may chew lightly before swallowing amlodipine 5 mg tablet 5 mg PO DAILY Qty: 90 1RF carvedilol 25 mg tablet 25 mg PO BID Qty: 180 1RF clopidogrel 75 mg tablet 75 mg PO DAILY Qty: 90 1RF cyclobenzaprine 5 mg tablet 5 mg PO DAILY PRN (Reason: muscle spasm) Qty: 30 0RF lisinopril 40 mg tablet 40 mg PO DAILY Qty: 90 1RF meloxicam 7.5 mg tablet 7.5 mg PO DAILY Qty: 90 1RF atorvastatin 80 mg tablet 80 mg PO DAILY Qty: 90 1RF Zyrtec 10 mg capsule 10 mg PO DAILY PRN (Reason: allergy symptoms) Qty: 30 0RF aspirin [Aspirin Childrens] 81 mg tablet,chewable 81 mg PO DAILY lidocaine 5 % adhesive patch,medicated 1 patch topical DAILY Qty: 30 2RF Rx Instructions: leave on most painful area for up to 12 hrs alprazolam 0.5 mg tablet 0.5 mg PO DAILY PRN (Reason: anxiety) Qty: 30 0RF duloxetine 60 mg capsule,delayed release(DR/EC) 60 mg PO DAILY Qty: 90 0RF Follow-up/Referrals: Tamera Raza DO [Primary Care Provider] - Erasto Ramos MD [Physician] -
[2024-12-16 13:46] LABS: Lactic Acid Reflex < 0.5 mmol/L (0.7-2.0)
[2024-12-16 13:53] LABS: INR 1.1; Prothrombin Time 14.7 Seconds (11.1-14.7)
[2024-12-16 13:58] LABS: Partial Thromboplastin Time 30.6 Seconds (22.3-36.8)
[2024-12-16] MEDS: POTASSIUM CHLORIDE 20 MEQ PACKET (FOR LIQUID) 40 MEQ PO (14:31)
[2024-12-16 14:32] VITALS: BP 130/50; PULSE 88; RESP 19; O2SAT 98
[2024-12-16] MEDS: KCL 20 MEQ/SW 100 ML 100 ML 50 MEQ IVPB (14:40)
[2024-12-16 15:20] LABS: Toxigenic C. Diff NEGATIVE (NEGATIVE)
[2024-12-16] MEDS: SODIUM CHLORIDE 0.9% IV 250 ML 999 ML (16:00)
[2024-12-16 16:47] LABS: Add Urine Microscopic? NO; Appearance Urine Clear (Clear); Bilirubin Urine Negative (Negative); Blood Urine Negative (Negative); Color Urine Yellow (Yellow); Glucose Urine UA Negative (Negative); Ketones Urine Negative (Negative); Leukocyte Esterase Ur Negative LEU/UL (Negative); Nitrate Urine Negative (Negative); Protein Urine Negative (Negative); Specific Grav Ur 1.042 (1.001-1.035); Urobilinogen Urine 0.2 mg/dL (<2.0)
[2024-12-16 16:55] VITALS: BP 126/65; PULSE 77; RESP 18; O2SAT 97
== END 2024-12-16 17:16 | disposition home or self-care (01) ==
PROVIDERS: Emergency Provider Emergency Medicine; PCP Family Medicine
DX: R19.7 Diarrhea, unspecified (principal); I10 Essential (primary) hypertension; K51.90 Ulcerative colitis, unspecified, without complications; Z95.5 Presence of coronary angioplasty implant and graft; Z90.710 Acquired absence of both cervix and uterus; K20.90 Esophagitis, unspecified without bleeding; K29.70 Gastritis, unspecified, without bleeding; R93.41 Abnormal radiologic findings on diagnostic imaging of renal pelvis, ureter, or bladder
CPT/HCPCS: 36415; 74177; 80053; 81003; 83605; 83690; 85025; 85610; 85730; 87493; 96365; 96366; 99284; A9270; J3480; J7050; Q9967

== ENCOUNTER 2025-01-04 10:46 | Emergency (ER) | payer MEDICARE, SELFPAY ==
[2025-01-04] VITALS (11 sets, daily range): BP systolic 116–146; BP diastolic 49–94; PULSE 55–78; RESP 11–18; O2SAT 91–99
--- NOTE | ~2025-01-04 | CT_ITS ---
EXAM: CT brain wo con - 01/04/2025 14:20 CDT History: 79 years old Female with dizziness COMPARISON: None available. PROCEDURE: CT of the head without contrast. Axial, sagittal and coronal reformatted planes were javier luated. Automatic exposure control was used for this study. FINDINGS: BRAIN PARENCHYMA: No acute hemorrhage. No mass effect or herniation. Mcfadden-white matter differentiatio n is maintained. Mild chronic volume loss. Scattered hypodensities in subcortical and periventricular white matter, likely representing chronic microvascular ischemic changes in this age group. Atherosc lerotic calcification of the intracranial vessels is noted. VENTRICLES/ EXTRA-AXIAL SPACES: No hydrocephalus or extra-axial fluid collection. EXTRACRANIAL STRUCTURES: No calvarial fracture. IMPRESSION: No evidence for acute intracranial hemorrhage or calvarial fracture. Reviewed, dictated and finalized at location A.
--- NOTE | ~2025-01-04 | CT_ITS ---
EXAM: CT abdomen pelvis w con - 01/04/2025 14:20 CDT History: 79 years old Female with chronic diarrhea (>14 days) TECHNIQUE: Multidetector CT of the abdomen and pelvis with intravenous contrast. Coronal and sagitta l reformats were also provided for review. Automatic exposure control was used for this study. CONTRAST: 100 cc of Optiray 350 was used for this study. COMPARISON: 12/16/2024. FINDINGS: VISUALIZED CHEST: Calcified granuloma in right lung base. ABDOMEN and PELVIS: LIVER: Within normal limits. GALLBLADDER: No calcified gallstones. BILE DUCTS: No dilatation. SPLEEN: Multiple calcified granulomas are seen. PANCREAS: Within normal limits. ADRENAL GLANDS: Within normal limits. KIDNEYS and URETERS: No hydronephrosis or hydroureter. No nephroureterolithiasis. URINARY BLADDER: Within normal limits. STOMACH and BOWEL: Fluid-filled distended loops of small and large bowel along with mucosal hyperenha ncement, a nonspecific finding and can be seen in enterocolitis. Diffuse wall thickening of the stoma ch, concerning for gastritis. Areas of hypodensity in the cecum is again seen and was seen on previou s study. This likely represents ingested medicines. REPRODUCTIVE ORGANS: Within normal limits. MESENTERY/PERITONEAL CAVITY: No free fluid or pneumoperitoneum. LYMPH NODES: No abdominal or pelvic lymphadenopathy. ABDOMINAL WALL: Within normal limits. VASCULATURE: Within normal limits. MUSCULOSKELETAL: Multilevel degenerative changes of the spine. Grade 1 anterolisthesis of L4 on L5, l ikely degenerative. IMPRESSION: 1. Fluid-filled distended loops of small and large bowel along with mucosal hyperenhancement, a nons pecific finding and can be seen in enterocolitis. 2. Diffuse wall thickening of the stomach, concerning for gastritis.. Reviewed, dictated and finalized at location A. IMPRESSION: 1. Fluid-filled distended loops of small and large bowel along with mucosal hy perenhancement, a nonspecific finding and can be seen in enterocolitis. 2. Diffuse wall thickening of the stomach, concerning for gastritis..
--- NOTE | 2025-01-04 11:18 | ECG_ITS ---
Test Date: 2025-01-04 11:26:32 Measurements Intervals [place] Rate: 61 P: 78 MN: 169 QRS: 36 QRSD: 102 T: 25 QT: 419 QTc: 423 Interpretive Statements SINUS RHYTHM WITH OCCASIONAL VENTRICULAR PREMATURE COMPLEXES BORDERLINE ST-T WAVE ABNORMALITY- ANT/INF LEADS BASELINE ARTIFACT- I, II, III, AVR, AVL, AVF, V1, V5 BORDERLINE ECG No previous ECG available for comparison Electronically Signed On 01-04-2025 12:04:49 CDT by Jorge Mendez D.O.
--- NOTE | 2025-01-04 13:03 | ED_ITS ---
HPI - General Adult General Chief complaint: Dizziness Stated complaint: dizziness, diarrhea Time Seen by Provider: 01/04/25 13:01 Source: patient and other (Friend) Mode of arrival: ambulatory Limitations: no limitations History of Present Illness HPI narrative: Patient presents with report of dizziness, nausea, diarrhea lasting greater than 2 weeks, and general malaise. She was at appointment with gastroenterology here today and advised to report to the emergency department. With her dizziness she reports it as a lightheadedness. No component of spinning or rotational movement. Not preceded by head position changes. Usually preceded by changing positions are example seated to standing or stooping, although did have symptoms yesterday while walking. No ear pain. She does have chronic tinnitus which she describes as sounding like cicadas. Status post hysterectomy but otherwise no abdominal surgeries. She is on aspirin and Plavix but otherwise no anticoagulation she denies any frankly bloody stools. No vomiting. She reports decreased p.o. intake partially due to decreased taste. She will occasionally experience intermittent abdominal pain, particularly on the left side, LUQ. Believe she might have diverticular disease although does not know diverticulitis versus diverticulosis. Denies any abdominal pain currently. No recent travel or antibiotics. Lives with her dog but otherwise alone. No sick contacts. No chest pain, shortness of breath. No syncope. Related Data Home Medications ?Medication ?Instructions ?Recorded ?Confirmed ?Last Taken ?Type calcium 600 mg (as 1 tablet PO BID 06/22/24 01/04/25 Unknown History carbonate)-vitamin D3 10 mcg (400 unit) tablet mecobalamin (vitamin B12) 1,000 1,000 mcg PO DAILY 06/22/24 01/04/25 Unknown History mcg lozenges aspirin 81 mg chewable tablet 81 mg PO DAILY 11/14/24 01/04/25 Unknown History (Aspirin Childrens) Allergies Allergy/AdvReac Type Severity Reaction Status Date / Time No Known Allergies Allergy Verified 01/04/25 09:39 [facility] Past Medical History Medical History Presence of stent in coronary artery in patient with coronary artery disease Hypertension Ulcerative colitis Surgical History Surgical History Hx of heart artery stent x3 H/O hysterectomy for benign disease Family History Family History Father Heart problem Social History Social History (Updated 01/04/25 @ 13:41 by Suyapa Olivera MD) Smoking status: Former smoker Tobacco type: cigarettes Alcohol intake: current Alcohol use details: Very rarely Substance use: never Substance use type: does not use Living arrangements: alone Additional living arrangements comments: (with dog) Exam 2 Narrative: GENERAL: well-nourished, and in no acute distress. HEAD: Normocephalic, atraumatic. EYES: Non injected, non icteric. Vertical and horizontal extraocular movements intact without nystagmus. ENT: Nares clear, no rhinorrhea or epistaxis. Gross auditory acuity intact. Tacky mucous membranes. Bilateral tympanic membranes without erythema, effusion/bulging. External auditory canals normal without cerumen impaction. NECK: Supple. No meningismus. CHEST: Speaking in full sentences. No respiratory distress. HEART: Regular rate and rhythm. . ABDOMEN: Soft, nondistended. No rigidity or guarding. Not peritoneal. No tenderness to palpation throughout. No overlying ecchymosis, erythema, vesicles/lesions. EXTREMITIES: Normal range of motion. No lower extremity edema. SKIN: Warm, dry, no rash. NEURO: No focal deficits. Alert and oriented. Answering questions. Following commands. Normal speech without aphasia or dysarthria. PSYCH: Normal mood and affect. Course Vital Signs Vital signs: Vital Signs Pulse Rate 55 L 01/04/25 10:53 Respiratory Rate 11 L 01/04/25 10:53 Blood Pressure 119/49 L 01/04/25 10:53 Pulse Oximetry 97 01/04/25 10:53 Oxygen Delivery Room Air 01/04/25 10:53 Pulse Rate 71 01/04/25 19:38 Respiratory Rate 15 01/04/25 19:38 Blood Pressure 126/90 01/04/25 19:38 Pulse Oximetry 97 01/04/25 19:38 Oxygen Delivery Room Air 01/04/25 10:53 Medical Decision Making [facility] Narrative Medical decision making narrative: Patient presents with dizziness, nausea, general malaise. The diarrhea and several of these symptoms have been going on for greater than 2 weeks. In the emergency department she is afebrile with vital signs notable for low diastolic blood pressure but with mean arterial pressure 72 mm Hg. She is initially bradycardic, mild. Also initially mildly bradypneic. EMR/past medical history lists ulcerative colitis although GI note reports that there is no clearly documented history of this thus diagnosis equivocal. My differential diagnosis for chronic diarrhea includes, but not limited to: Infectious (giardia, E histolytica, C difficile), medications (antibiotics, antacids, lactulose, sorbitol, chemotherapy, colchicine, gold), inflammatory etiology (such as IBD, radiation enteritis, ischemic colitis, diverticulitis). Also possible are malabsorption issues due to bile salt deficiency (cirrhosis, cholestasis, ileal disease, bacterial overgrowth), pancreatic insufficiency, mucosal abnormalities (celiac sprue, tropical sprue, Whipple disease), or lactose intolerance. They are also secretory causes such as hormonal (VIP, carcinoid tumor, medullary cancer of thyroid, a linear Rutledge, glucagon, thyroxine), laxative abuse, neoplasm; finally motility issues may be the cause (IBS, scleroderma, hyperthyroidism, diabetic autonomic neuropathy). In regards to her dizziness, DIFFERENTIAL DIAGNOSES CONSIDERED: Central causes: infection ( encephalitis, meningitis, cerebritis); vertebrobasilar arterial insufficiency, subclavian steal syndrome, cerebellar or brainstem hemorrhage or infarction, vertebrobasilar migraine, trauma ( temporal bone fracture, post concussive syndrome); tumor (brainstem or cerebellum); MS; temporal lobe epilepsy Peripheral causes: Foreign body, cerumen impaction, acute otitis media, labyrinthitis, benign paroxysmal positional vertigo, Meniere's disease, vestibular neuronitis, perilymphatic fistula, trauma, motion sickness, acoustic neuroma, ototoxic medications I suspect that her dizziness/lightheadedness is likely due to dehydration/orthostatics especially by report/history. The stool labs that had been recommended by GI for outpatient collected are ordered if patient able to provide a sample in the ED. She is hypokalemic; IV repletion initially ordered while await determination of best oral formulation (if possible) to supplement additionally. TSH abnormal; T4 and T3 ordered. Magnesium and phoshorous normal. No surgical process on CT. PO potassium also ordered. C difficile negative. Repeat potassium only borderline abnormal. Patient reassessed and 7:00 p.m.. Extensive time spent bedside discussing patient's workup. She has been walking back and forth to the bathroom and has not required assistance. She looks better and states she is feeling better. 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 Noted that the recommended stool samples had been obtained so no need to submit these again in the outpatient setting, that they are already in process with the C difficile already resulting as negative and GI can follow up on the others. We discussed the prescriptions that gastroenterology had recommended patient be on and she notes that she had already received notification from her pharmacy that these are available. Recommended she follow up with GI as it appears that they are strongly considering that she undergo EGD/colonoscopy and that these procedures are likely to give more definitive information about the etiology of patient's symptoms because of what their goal is in that biopsies can be obtained, etc.. Verifies understanding. Stable for discharge. Patient does not drink routinely but I did encourage her to avoid alcohol while on Flagyl. Noted the importance of maintaining hydration and that repletion for electrolytes/supplementation could be performed Pedialyte/Gatorade although I did not need to be name brand. Although patient had been hypotensive in clinic, this had resolved while in the emergency department even prior to IV fluids but had especially remained stable since. Discussed the nonspecific nature of the notation of gastritis, enterocolitis on the CT scan and why further workups are important. Discharged with additional prescription for Bentyl. Medical Records Medical records reviewed: Yes I reviewed the external patient's medical records. Medical records narrative: GI APPT note from today reviewed: ENDOSCOPY HISTORY: EGD: No recent EGD available COLONOSCOPY: 05/2021 (Dr. Toshia Jordan) Single diverticulum, no colitis, no inflammation, no polyps LABS AND STOOL STUDIES: 12/16/2024 WBC 8.6, HGB 11, hematocrit 35, MCV 88, platelets 246, INR 1 12/16/2024 Na 133, K 3, BUN 15, creatinine 0.65, GFR not available 12/16/2024 total bilirubin 0.5, AST 27, ALT 15, alkaline phosphatase 76 12/16/2024 C diff negative IMAGING: CT abdomen pelvis with contrast 12/16/2024 Mild esophagitis/gastritis with gastric wall thickening versus pseudothickening from incomplete distention. Sigmoid wall edema and thickening, likely representing infectious, inflammatory, or ischemic colitis. Possible cystitis. Small uncomplicated fat-containing umbilical hernia. Grade 1 anterolistheses at L4-5 and L5-S1. Severe central canal stenosis at L4-5, secondary to degenerative changes. Plan 1. Change in Bowel Habits/Severe Diarrhea/Abdominal pain/Weight loss/Gastric and sigmoid wall thickening/History of UC: She reports 3 months of diarrhea with significant worsening since 12/10/2024, now having 12-16 bowel movements daily. She has intermittent abdominal pain and has lost 10 pounds since 12/10/2024. C diff negative, WBC normal, and mild anemia. CT from 12/16/2024 showed gastric wall thickening and sigmoid wall edema/thickening, inflammatory, infectious or ischemic? She was on Meloxicam but this has been stopped. Has nausea but no vomiting. History of ulcerative colitis years ago, no current treatment. Differential diagnosis include infectious colitis VS inflammatory bowel disease VS ischemic colitis - EGD and colonoscopy to be scheduled - Start Pantoprazole 40 mg daily - Cipro and Flagyl x 10 days - Cholestyramine BID. - Continue to avoid NSAIDs - Stool studies ordered including C. diff, culture, giardia, and calprotectin - CBC, CMP, CRP, ESR, and TSH - Further recs following scopes and stools. 2. Hypotension/Dizziness: Blood pressure 92/42 today with complaints of dizziness and lightheadedness that has worsened over the past two days. History of low potassium (3.0) on 12/16/2024 requiring IV and oral replacement. - Recommended immediate evaluation at emergency department Vital Signs Vital Signs: Vital Signs Pulse Rate 55 L 01/04/25 10:53 Respiratory Rate 11 L 01/04/25 10:53 Blood Pressure 119/49 L 01/04/25 10:53 Pulse Oximetry 97 01/04/25 10:53 Oxygen Delivery Room Air 01/04/25 10:53 Pulse Rate 71 01/04/25 19:38 Respiratory Rate 15 01/04/25 19:38 Blood Pressure 126/90 01/04/25 19:38 Pulse Oximetry 97 01/04/25 19:38 Oxygen Delivery Room Air 01/04/25 10:53 Lab Data Lab results reviewed: Yes I reviewed the patient's lab results. 01/04/25 16:04 01/04/25 18:17 Labs: Lab Results 01/04/25 01/04/25 01/04/25 Range/Units 13:43 13:44 14:54 WBC (4.5-10.0) K/mm3 RBC (4.2-5.4) M/mm3 Hgb (12.0-15.0) g/dL Hct (37.0-47.0) % MCV (80-100) fl MCH (26-34) pg MCHC (32-36) g/dl RDW (11.5-14.5) % Plt Count (150-375) k/mm3 MPV (7.4-10.4) fl Immature Gran % (Auto) (0-0.5) % Neut % (Auto) (45.5-73.1) % Lymph % (Auto) (18.3-44.2) % Sanborn % (Auto) (2.6-8.5) % Eos % (Auto) (0-4.4) % Baso % (Auto) (0.2-1.2) % Lymph # (Auto) (0.9-3.2) K/mm3 Sanborn # (Auto) (0.1-0.6) K/mm3 Eos # (Auto) (0-0.3) K/mm3 Baso # (Auto) (0.0-0.1) K/mm3 Abs Immat Gran (auto) (0.00-0.031) K/mm3 Absolute Neuts (auto) (1.3-6.7) K/mm3 Absolute Nucleated RBC (0.0-0.012) K/mm3 Nucleated RBC % (0.0-0.2) % ESR (0-20) mm/hr Sodium 137 (137-145) mmol/L Potassium 2.4 L* (3.4-5.0) mmol/L Chloride 103 (98-107) mmol/L Carbon Dioxide 23 (22-30) mmol/L Anion Gap 11 (4-12) mmol/L BUN 17 (7-17) mg/dL Creatinine 0.97 (0.7-1.0) mg/dL Estim Creat Clear Calc 34 ml/min Estimated GFR 55 L (59 - ) Glucose 95 (65-110) mg/dL Lactic Acid 0.7 (0.7-2.0) mmol/L Calcium 9.1 (8.4-10.2) mg/dL Phosphorus 3.2 (2.5-4.5) mg/dL Magnesium 1.9 (1.6-2.3) mg/dL Total Bilirubin 0.7 (0.2-1.3) mg/dL AST 29 (14-36) U/L ALT 21 (6-35) U/L Alkaline Phosphatase 82 (38-126) U/L Total Creatine Kinase 137 H (30-135) U/L Troponin I < 0.012 (0.000-0.034) ng/mL C-Reactive Protein 1.1 (<1.0) mg/dL Total Protein 6.6 (6.3-8.2) g/dL Albumin 3.9 (3.5-5.1) g/dL Lipase 45 (23-300) U/L TSH 0.025 L (0.465-4.680) uIU/mL Thyroxine (T4) (5.53-11.0) ug/dL Total T3 (0.82-1.58) NG/ML Urine Color (Yellow) Urine Appearance (Clear) Urine pH (5.0-9.0) Ur Specific Hope (1.001-1.035) Urine Protein (Negative) mg/dL Urine Glucose (UA) (Negative) mg/dL Urine Ketones (Negative) mg/dL Ur Blood (Man) (Negative) Urine Nitrate (Negative) Urine Bilirubin (Negative) Urine Urobilinogen (<2.0) mg/dL Add Ur Microanalysis Leukocyte Esterase Rfl (Negative) YUN/UL Urine RBC (0-2) /hpf Urine WBC (0-3) /hpf Ur Squamous Epith Cells (Few) /hpf Urine Bacteria /hpf Urine Casts Stool Calprotectin C. difficile (PCR) (NEGATIVE) Influenza A (RT-PCR) Negative (Negative) Influenza B (RT-PCR) Negative (Negative) RSV (RT-PCR) Negative (Negative) SARS-CoV-2 RNA (RT-PCR) Negative (Negative) 01/04/25 01/04/25 01/04/25 Range/Units 14:55 16:04 16:58 WBC 8.0 (4.5-10.0) K/mm3 RBC 4.33 (4.2-5.4) M/mm3 Hgb 13.0 (12.0-15.0) g/dL Hct 37.4 (37.0-47.0) % MCV 86.4 (80-100) fl MCH 30.0 (26-34) pg MCHC 34.8 (32-36) g/dl RDW 13.2 (11.5-14.5) % Plt Count 262 (150-375) k/mm3 MPV 9.3 (7.4-10.4) fl Immature Gran % (Auto) 0.4 (0-0.5) % Neut % (Auto) 52.9 (45.5-73.1) % Lymph % (Auto) 31.6 (18.3-44.2) % Sanborn % (Auto) 11.3 H (2.6-8.5) % Eos % (Auto) 3.0 (0-4.4) % Baso % (Auto) 0.8 (0.2-1.2) % Lymph # (Auto) 2.52 (0.9-3.2) K/mm3 Sanborn # (Auto) 0.9 H (0.1-0.6) K/mm3 Eos # (Auto) 0.2 (0-0.3) K/mm3 Baso # (Auto) 0.1 (0.0-0.1) K/mm3 Abs Immat Gran (auto) 0.03 (0.00-0.031) K/mm3 Absolute Neuts (auto) 4.2 (1.3-6.7) K/mm3 Absolute Nucleated RBC 0.000 (0.0-0.012) K/mm3 Nucleated RBC % 0.0 (0.0-0.2) % ESR 19 (0-20) mm/hr Sodium (137-145) mmol/L Potassium (3.4-5.0) mmol/L Chloride (98-107) mmol/L Carbon Dioxide (22-30) mmol/L Anion Gap (4-12) mmol/L BUN (7-17) mg/dL Creatinine (0.7-1.0) mg/dL Estim Creat Clear Calc ml/min Estimated GFR (59 - ) Glucose (65-110) mg/dL Lactic Acid (0.7-2.0) mmol/L Calcium (8.4-10.2) mg/dL Phosphorus (2.5-4.5) mg/dL Magnesium (1.6-2.3) mg/dL Total Bilirubin (0.2-1.3) mg/dL AST (14-36) U/L ALT (6-35) U/L Alkaline Phosphatase (38-126) U/L Total Creatine Kinase (30-135) U/L Troponin I (0.000-0.034) ng/mL C-Reactive Protein (<1.0) mg/dL Total Protein (6.3-8.2) g/dL Albumin (3.5-5.1) g/dL Lipase (23-300) U/L TSH (0.465-4.680) uIU/mL Thyroxine (T4) 7.79 (5.53-11.0) ug/dL Total T3 0.92 (0.82-1.58) NG/ML Urine Color Yellow (Yellow) Urine Appearance Clear (Clear) Urine pH 6.5 (5.0-9.0) Ur Specific Hope 1.006 (1.001-1.035) Urine Protein Negative (Negative) mg/dL Urine Glucose (UA) Negative (Negative) mg/dL Urine Ketones Negative (Negative) mg/dL Ur Blood (Man) Negative (Negative) Urine Nitrate Negative (Negative) Urine Bilirubin Negative (Negative) Urine Urobilinogen 0.2 (<2.0) mg/dL Add Ur Microanalysis Reviewed Leukocyte Esterase Rfl Trace H (Negative) YUN/UL Urine RBC 0-2 (0-2) /hpf Urine WBC 0-5 (0-3) /hpf Ur Squamous Epith Cells Occasional (Few) /hpf Urine Bacteria None seen /hpf Urine Casts 0-2 Stool Calprotectin Pending C. difficile (PCR) Negative (NEGATIVE) Influenza A (RT-PCR) (Negative) Influenza B (RT-PCR) (Negative) RSV (RT-PCR) (Negative) SARS-CoV-2 RNA (RT-PCR) (Negative) 01/04/25 Range/Units 18:17 WBC (4.5-10.0) K/mm3 RBC (4.2-5.4) M/mm3 Hgb (12.0-15.0) g/dL Hct (37.0-47.0) % MCV (80-100) fl MCH (26-34) pg MCHC (32-36) g/dl RDW (11.5-14.5) % Plt Count (150-375) k/mm3 MPV (7.4-10.4) fl Immature Gran % (Auto) (0-0.5) % Neut % (Auto) (45.5-73.1) % Lymph % (Auto) (18.3-44.2) % Sanborn % (Auto) (2.6-8.5) % Eos % (Auto) (0-4.4) % Baso % (Auto) (0.2-1.2) % Lymph # (Auto) (0.9-3.2) K/mm3 Sanborn # (Auto) (0.1-0.6) K/mm3 Eos # (Auto) (0-0.3) K/mm3 Baso # (Auto) (0.0-0.1) K/mm3 Abs Immat Gran (auto) (0.00-0.031) K/mm3 Absolute Neuts (auto) (1.3-6.7) K/mm3 Absolute Nucleated RBC (0.0-0.012) K/mm3 Nucleated RBC % (0.0-0.2) % ESR (0-20) mm/hr Sodium 139 (137-145) mmol/L Potassium 3.3 L (3.4-5.0) mmol/L Chloride 107 (98-107) mmol/L Carbon Dioxide 22 (22-30) mmol/L Anion Gap 10 (4-12) mmol/L BUN 13 (7-17) mg/dL Creatinine 0.76 (0.7-1.0) mg/dL Estim Creat Clear Calc 43 ml/min Estimated GFR > 60 (59 - ) Glucose 98 (65-110) mg/dL Lactic Acid (0.7-2.0) mmol/L Calcium 8.9 (8.4-10.2) mg/dL Phosphorus (2.5-4.5) mg/dL Magnesium (1.6-2.3) mg/dL Total Bilirubin (0.2-1.3) mg/dL AST (14-36) U/L ALT (6-35) U/L Alkaline Phosphatase (38-126) U/L Total Creatine Kinase (30-135) U/L Troponin I (0.000-0.034) ng/mL C-Reactive Protein (<1.0) mg/dL Total Protein (6.3-8.2) g/dL Albumin (3.5-5.1) g/dL Lipase (23-300) U/L TSH (0.465-4.680) uIU/mL Thyroxine (T4) (5.53-11.0) ug/dL Total T3 (0.82-1.58) NG/ML Urine Color (Yellow) Urine Appearance (Clear) Urine pH (5.0-9.0) Ur Specific Hope (1.001-1.035) Urine Protein (Negative) mg/dL Urine Glucose (UA) (Negative) mg/dL Urine Ketones (Negative) mg/dL Ur Blood (Man) (Negative) Urine Nitrate (Negative) Urine Bilirubin (Negative) Urine Urobilinogen (<2.0) mg/dL Add Ur Microanalysis Leukocyte Esterase Rfl (Negative) YUN/UL Urine RBC (0-2) /hpf Urine WBC (0-3) /hpf Ur Squamous Epith Cells (Few) /hpf Urine Bacteria /hpf Urine Casts Stool Calprotectin C. difficile (PCR) (NEGATIVE) Influenza A (RT-PCR) (Negative) Influenza B (RT-PCR) (Negative) RSV (RT-PCR) (Negative) SARS-CoV-2 RNA (RT-PCR) (Negative) Imaging Data Radiologist's impression: IMPRESSION: No evidence for acute intracranial hemorrhage or calvarial fracture. IMPRESSION: 1. Fluid-filled distended loops of small and large bowel along with mucosal hyperenhancement, a nonspecific finding and can be seen in enterocolitis. 2. Diffuse wall thickening of the stomach, concerning for gastritis.. ECG Data EKG #1: Attestation: I personally reviewed and interpreted this ECG as follows: ECG completion date: 01/04/25 ECG completion time: 11:26 Interpretation: Sinus rhythm at a rate of 61 beats per minute. FL interval 169. QRS 102. QT/QTC 419/422. Good R-wave progression across the precordial leads. Occasional PVC. Good R-wave progression across the precordial leads. T-wave inversion in 3 but otherwise not inverted in contiguous inferior leads 2 and AVF. Slightly biphasic T-wave in V3 though does not have the appearance of Wellens. Possibly due to lead position placement. Discharge Plan Discharge Clinical Impression: Chronic diarrhea, Dizziness, Hypokalemia, Enterocolitis, Gastritis Patient Disposition: Home Condition: Stable Instructions: Antibiotic Form, Gastritis (DC), Hypokalemia (ED), Chronic Diarrhea (DC), Dizziness (ED), Colitis (ED), Enteritis (ED) Additional Instructions: As we discussed, the labs and stool samples that gastroenterology wanted you to obtain were performed in the ED today. Some are still in process and they can follow up with them. Continue to work to maintain your hydration by drinking plenty of fluids. You can supplement with electrolyte containing products like Gatorade/Pedialyte although they do not need to me name brand. Follow-up with gastroenterology as it appears they want to proceed with performing EGD/colonoscopy. Take all the medications they prescribed. Return to the emergency department any new or worsening symptoms. The dicyclomine/Bentyl can help with the cramping sensation you experience with the diarrhea. Do not drink alcohol while taking metronidazole/Flagyl. Patient Language: Barbadian Prescriptions: New dicyclomine 10 mg capsule 10 mg PO BID PRN (Reason: abdominal pain) Qty: 10 0RF No Action calcium carbonate-vitamin D3 600 mg-10 mcg (400 unit) tablet 1 tablet PO BID mecobalamin (vitamin B12) 1,000 mcg lozenge 1,000 mcg PO DAILY Rx Instructions: allow to dissolve in mouth OR may chew lightly before swallowing amlodipine 5 mg tablet 5 mg PO DAILY Qty: 90 1RF carvedilol 25 mg tablet 25 mg PO BID Qty: 180 1RF cyclobenzaprine 5 mg tablet 5 mg PO DAILY PRN (Reason: muscle spasm) Qty: 30 0RF lisinopril 40 mg tablet 40 mg PO DAILY Qty: 90 1RF atorvastatin 80 mg tablet 80 mg PO DAILY Qty: 90 1RF ciprofloxacin HCl 500 mg tablet 500 mg PO Q12H 10 Days Qty: 20 0RF metronidazole 500 mg tablet 500 mg PO Q8H 10 Days Qty: 30 0RF Cholestyramine Light 4 gram powder in packet 4 g PO BID Qty: 60 0RF Rx Instructions: administer w/meal; avoid other meds within 1hr before or 4-6hr after dose pantoprazole 40 mg tablet,delayed release (DR/EC) 40 mg PO QAM Qty: 30 3RF Zyrtec 10 mg capsule 10 mg PO DAILY PRN (Reason: allergy symptoms) Qty: 30 0RF aspirin [Aspirin Childrens] 81 mg tablet,chewable 81 mg PO DAILY lidocaine 5 % adhesive patch,medicated 1 patch topical DAILY Qty: 30 2RF Rx Instructions: leave on most painful area for up to 12 hrs alprazolam 0.5 mg tablet 0.5 mg PO DAILY PRN (Reason: anxiety) Qty: 30 0RF duloxetine 60 mg capsule,delayed release(DR/EC) 60 mg PO DAILY Qty: 90 0RF clopidogrel 75 mg tablet See Rx Instructions .ROUTE .COMPLEX Qty: 90 0RF Dose Instruction: Take 1 tablet by mouth once daily Rx Instructions: Take 1 tablet by mouth once daily Follow-up/Referrals: Rebecca Marc APRN [Advanced Practice Nurse] - Tamera Raza DO [Primary Care Provider] - Time of Disposition: 19:18
[2025-01-04 14:08] LABS: Alanine Aminotransferase 21 U/L (6-35); Albumin Level 3.9 g/dL (3.5-5.1); Alkaline Phosphatase 82 U/L (38-126); Anion Gap 11 mmol/L (4-12); Aspartate Amino Transferase 29 U/L (14-36); Bilirubin,Total 0.7 mg/dL (0.2-1.3); Blood Urea Nitrogen 17 mg/dL (7-17); Calcium 9.1 mg/dL (8.4-10.2); Carbon Dioxide 23 mmol/L (22-30); Chloride 103 mmol/L (98-107); Estimated CRCL calculation 34 ml/min; Estimated Glomerular Filt Rate 55; Glucose 95 mg/dL (65-110); Magnesium 1.9 mg/dL (1.6-2.3); Potassium 2.4 mmol/L (3.4-5.0); Sodium 137 mmol/L (137-145); Total Protein 6.6 g/dL (6.3-8.2)
[2025-01-04 14:10] LABS: Creatine Kinase 137 U/L (30-135)
[2025-01-04] MEDS: SODIUM CHLORIDE 0.9% IV 1,000 ML 999 ML IV CONT (14:11)
[2025-01-04] MEDS: ONDANSETRON INJ 4 MG/2 ML VIAL IV PUSH (14:11)
[2025-01-04 14:12] LABS: CRP 1.1 mg/dL (<1.0); Lipase 45 U/L (23-300)
[2025-01-04 14:13] LABS: Troponin I < 0.012 ng/mL (0.000-0.034)
[2025-01-04 14:42] LABS: Thyroid Stimulating Hormone 0.025 uIU/mL (0.465-4.680)
[2025-01-04] MEDS: KCL 20 MEQ/SW 100 ML 100 ML 50 MEQ IVPB (14:43)
[2025-01-04 14:44] LABS: Influenza A QL RT-PCR Negative (Negative); Influenza B QL RT-PCR Negative (Negative); RSV RNA, RT-PCR Negative (Negative); SARS-CoV-2 RNA PCR Negative (Negative)
[2025-01-04 14:47] LABS: Lactic Acid Reflex 0.7 mmol/L (0.7-2.0)
[2025-01-04 15:22] LABS: Phosphorus 3.2 mg/dL (2.5-4.5)
--- NOTE | 2025-01-04 15:23 | PC.NURSE ---
Patient difficult stick. Purple top has been rejected for a 2nd time. [employer] called and they will come draw labs for us.
[2025-01-04 15:25] LABS: Add Urine Microscopic? YES; Appearance Urine Clear (Clear); Bacteria Urine None Seen /hpf; Bilirubin Urine Negative (Negative); Blood Urine Negative (Negative); Color Urine Yellow (Yellow); Glucose Urine UA Negative (Negative); Ketones Urine Negative (Negative); Leukocyte Esterase Ur Trace LEU/UL (Negative); Need Manual Microscopic Reviewed; Nitrate Urine Negative (Negative); Non Pathogenic Casts 0-2; Protein Urine Negative (Negative); RBC Urine 0-2 /hpf (0-2); Specific Grav Ur 1.006 (1.001-1.035); Squamous Epithelial Cell Urine Occasional /hpf (Few); Urobilinogen Urine 0.2 mg/dL (<2.0); WBC Urine 0-5 /hpf (0-3); pH Urine 6.5 (5.0-9.0)
[2025-01-04] MEDS: POTASSIUM BICARBONATE 25 MEQ TABEF 50 MEQ PO (16:11)
[2025-01-04] MEDS: PANTOPRAZOLE SODIUM IV 40 MG VIAL IV PUSH (16:13)
[2025-01-04 16:14] LABS: Basophils Absolute Auto 0.1 K/mm3 (0.0-0.1); Basophils Percent Auto 0.8 % (0.2-1.2); Eosinophils Absolute Auto 0.2 K/mm3 (0-0.3); Hematocrit 37.4 % (37.0-47.0); Immature Granulocyte Absolute 0.03 K/mm3 (0.00-0.031); Immature Granulocyte Percent A 0.4 % (0-0.5); Lymphocytes Absolute Auto 2.52 K/mm3 (0.9-3.2); Lymphocytes Percent Auto 31.6 % (18.3-44.2); Mean Corpuscular HGB Conc 34.8 g/dl (32-36); Mean Corpuscular Volume 86.4 fl (80-100); Mean Platelet Volume 9.3 fl (7.4-10.4); Monocytes Absolute Auto 0.9 K/mm3 (0.1-0.6); Monocytes Percent Auto 11.3 % (2.6-8.5); Neutrophils Absolute Auto 4.2 K/mm3 (1.3-6.7); Neutrophils Percent Auto 52.9 % (45.5-73.1); Platelet Count Result 262 k/mm3 (150-375); Red Blood Count 4.33 M/mm3 (4.2-5.4); Red Cell Distribution Width 13.2 % (11.5-14.5)
[2025-01-04 16:37] LABS: T4 Thyroxine 7.79 ug/dL (5.53-11.0)
[2025-01-04 16:52] LABS: Total Triiodothyronine (T3) 0.92 NG/ML (0.82-1.58)
[2025-01-04 17:20] LABS: Erythrocyte Sedimentation Rate 19 mm/hr (0-20)
[2025-01-04] MEDS: DICYCLOMINE HCL 10 MG CAPSULE PO (17:28)
[2025-01-04 17:59] LABS: Toxigenic C. Diff NEGATIVE (NEGATIVE)
[2025-01-04 18:38] LABS: Anion Gap 10 mmol/L (4-12); Blood Urea Nitrogen 13 mg/dL (7-17); Calcium 8.9 mg/dL (8.4-10.2); Carbon Dioxide 22 mmol/L (22-30); Chloride 107 mmol/L (98-107); Estimated CRCL calculation 43 ml/min; Estimated Glomerular Filt Rate > 60; Glucose 98 mg/dL (65-110); Potassium 3.3 mmol/L (3.4-5.0); Sodium 139 mmol/L (137-145)
[2025-01-11 14:14] LABS: Calprotectin, Stool. 280 mcg/g
== END 2025-01-04 19:39 | disposition home or self-care (01) ==
PROVIDERS: Emergency Provider Student in an Organized Health Care Education/Training Program; PCP Family Medicine
DX: K52.9 Noninfective gastroenteritis and colitis, unspecified (principal); K29.70 Gastritis, unspecified, without bleeding; R42 Dizziness and giddiness; E87.6 Hypokalemia; Z20.822 Contact with and (suspected) exposure to COVID-19; I10 Essential (primary) hypertension; Z95.5 Presence of coronary angioplasty implant and graft; Z87.891 Personal history of nicotine dependence; Z90.710 Acquired absence of both cervix and uterus; Z79.02 Long term (current) use of antithrombotics/antiplatelets; Z79.82 Long term (current) use of aspirin; Z79.899 Other long term (current) drug therapy; I49.3 Ventricular premature depolarization; R94.31 Abnormal electrocardiogram [ECG] [EKG]
CPT/HCPCS: 36415; 70450; 74177; 80048; 80053; 81001; 82550; 83605; 83690; 83735; 83993; 84100; 84436; 84443; 84480; 84484; 85025; 85652; 86140; 87040; 87045; 87269; 87427; 87449; 87493; 87637; 93005; 96365; 96366; 96375; 99284; A9270; J2405; J2470; J3480; J7030; Q9967

== ENCOUNTER 2025-02-07 09:53 | Outpatient (CLI) | payer MEDICARE, SELFPAY ==
[2025-02-07 10:40] LABS: Hematocrit 32.1 % (37.0-47.0); Hemoglobin 10.6 g/dL (12.0-15.0); Mean Corpuscular HGB Conc 33.0 g/dl (32-36); Mean Corpuscular Hemoglobin 30.0 pg (26-34); Mean Corpuscular Volume 90.9 fl (80-100); Platelet Count Result 274 k/mm3 (150-375); Red Blood Count 3.53 M/mm3 (4.2-5.4); White Blood Count 6.1 K/mm3 (4.5-10.0)
[2025-02-07 11:22] LABS: Alanine Aminotransferase 14 U/L (6-35); Albumin Level 3.3 g/dL (3.5-5.1); Alkaline Phosphatase 57 U/L (38-126); Anion Gap 8 mmol/L (4-12); Aspartate Amino Transferase 20 U/L (14-36); Bilirubin,Total 0.4 mg/dL (0.2-1.3); Blood Urea Nitrogen 11 mg/dL (7-17); CRP 2.1 mg/dL (<1.0); Calcium 8.4 mg/dL (8.4-10.2); Carbon Dioxide 24 mmol/L (22-30); Chloride 104 mmol/L (98-107); Estimated Glomerular Filt Rate > 60; Glucose 94 mg/dL (65-110); Magnesium 1.5 mg/dL (1.6-2.3); Potassium 3.2 mmol/L (3.4-5.0); Sodium 136 mmol/L (137-145); Total Protein 5.9 g/dL (6.3-8.2)
[2025-02-07 11:48] LABS: Thyroid Stimulating Hormone Reflex 0.027 uIU/mL (0.465-4.68)
[2025-02-07 13:48] LABS: Free T4 Free Thyroxine Reflex 1.27 ng/dL (0.78-2.19)
[2025-02-07 17:14] LABS: Total Triiodothyronine (T3) 0.99 NG/ML (0.82-1.58)
== END 2025-02-07 09:54 | disposition home or self-care (01) ==
PROVIDERS: PCP Family Medicine; Visit Provider Nurse Practitioner
DX: R19.7 Diarrhea, unspecified (principal); R42 Dizziness and giddiness; I95.9 Hypotension, unspecified
CPT/HCPCS: 36415; 80053; 83735; 84439; 84443; 84480; 85027; 85652; 86140

== ENCOUNTER 2025-02-09 12:49 | Outpatient (NON) | payer MEDICARE, SELFPAY ==
[2025-02-09 15:58] LABS: Toxigenic C. Diff POSITIVE (NEGATIVE)
[2025-02-13 07:08] LABS: Calprotectin, Fecal 199 ug/g (0-120)
== END 2025-02-09 12:50 | disposition home or self-care (01) ==
LOC: ANHLAB 12:50
PROVIDERS: PCP Family Medicine; Visit Provider Nurse Practitioner
DX: R42 Dizziness and giddiness (principal); K52.9 Noninfective gastroenteritis and colitis, unspecified; I95.9 Hypotension, unspecified
CPT/HCPCS: 83993; 87045; 87046; 87427; 87493

== ENCOUNTER 2025-03-01 00:51 | Day surgery (SDC) | payer MEDICARE, SELFPAY ==
[2025-02-21 13:13] VITALS: BMI 24.7
--- NOTE | 2025-02-21 13:23 | SUR.PREOP ---
Called patient and confirmed last dose of plavix is to be today 02/21/2025 for her procedure scheduled on 03/01/2025.
[2025-03-01 09:01] VITALS: BP 126/83; PULSE 76; RESP 18; TEMP 36.3; O2SAT 97; BMI 25.2
[2025-03-01] MEDS: LACTATED RINGERS 1,000 ML 150 ML IV CONT (09:16)
[2025-03-01] MEDS: SIMETHICONE ORAL SUSPENSION 20 MG/0.3 ML 30 ML BOTTLE 1.8 ML PO (09:18)
--- NOTE | 2025-03-01 09:23 | P.PNAN_ITS ---
Anes - Initial Pre Proc Eval Procedure: Operation Date: 03/01/25 10:30 Proposed Procedures p EGD & Diagnostic Colonoscopy - Erasto Ramos MD Date/Time: 03/01/25 09:23 Surgeon: Erasto Ramos MD Pre Op Diagnosis: Abnormal findings on diagnostic imaging of other p Patient Data Age: 79 Gender: F Height: 1.57 m Weight: 62.6 kg Last Vital Signs Temp 36.3 C L 03/01/25 09:01 Pulse 76 03/01/25 09:01 Resp 18 03/01/25 09:01 BP 126/83 03/01/25 09:01 Pulse Ox 97 03/01/25 09:01 O2 Del Method Room Air 03/01/25 09:01 Allergies Allergy/AdvReac Type Severity Reaction Status Date / Time No Known Allergies Allergy Verified 03/01/25 08:59 Home Medications ?Medication ?Instructions ?Recorded ?Confirmed ?Type amlodipine 5 mg tablet 5 mg PO DAILY #90 tabs 06/2202/21/25 Rx atorvastatin 80 mg tablet 80 mg PO DAILY #90 tabs 06/1103/01/25 Rx cyclobenzaprine 5 mg tablet 5 mg PO DAILY PRN muscle s pasm #30 06/22/24 02/21/25 Rx tabs mecobalamin (vitamin B12) 1,000 1,000 mcg PO DAILY 07/0403/01/25 History mcg lozenges aspirin 81 mg chewable tablet 81 mg PO DAILY 11/14/24 03/01/25 History (Aspirin Childrens) duloxetine 60 mg capsule,delayed 60 mg PO DAILY #90 ea 12/12/24 03/01/25 Rx release clopidogrel 75 mg tablet See Rx Instructions .Route 0 12/21/24 03/01/25 Rx .COMPLEX #90 tabs pantoprazole 40 mg tablet,delayed 40 mg PO QAM #30 tab s 01/04/25 03/01/25 Rx release lisinopril 40 mg tablet 40 mg PO DAILY #90 tabs 01/0903/01/25 Rx alprazolam 0.5 mg tablet 0.5 mg PO DAILY PRN anxiety #30 02/06/25 03/01/25 Rx tabs carvedilol 25 mg tablet See Rx Instructions .Route 0 02/27/25 03/01/25 Rx .COMPLEX #180 tabs Patient hx anesthesia problems: none Family hx anesthesia problems: none Results Review: All pre-operative results and documents have been reviewed as part of the pre- operative evaluation. [facility] Past Medical History Medical History Presence of stent in coronary artery in patient with coronary artery disease Hypertension Ulcerative colitis Surgical History Surgical History Hx of heart artery stent x3 H/O hysterectomy for benign disease Family History Family History Father Heart problem Social History Social History Smoking status: Former smoker Tobacco type: cigarettes Alcohol intake: current Alcohol use details: Very rarely Substance use: never Substance use type: does not use Living arrangements: alone Additional living arrangements comments: (with dog) Anes - Eval Final PreProcedure Day of Procedure 03/01/25 09:23 Patient weight: normal Heart: regular rate and rhythm Lungs: clear to auscultation Airway: Mallampati scale class II Neurological: alert and oriented Last oral intake: >/= 8 hours ASA classification: III Emergent: no Anesthetic plan: proceed Anesthesia type and monitoring: general GIVS and standard monitoring Results Review: All pre-operative results and documents have been reviewed as part of the pre- operative evaluation. Informed Consent: The patient's anesthetic plan and its attendant risks and benefits were discussed with the patient/family/POA. Questions were solicited and answers provided to the satisfaction of the patient/family/POA.
--- NOTE | 2025-03-01 10:18 | PM.IMHP ---
H&P: HPI History of Present Illness Date/Time: 03/01/25 10:18 Chief Complaint: chronic diarrhea-abnormal CT scan Narrative: the patient has been having persistent diarrhea for the past 5 months and up to 10-12 bowel movements per day. Her last colonoscopy was in 2020 showing diverticulosis but no evidence of colitis or neoplasm. As part of the workup, a CT scan was performed and there was suspicion for a thickened esophagus, however the patient denies dysphagia. She is referred for EGD and colonoscopy. Review of Systems Review of Systems: All systems reviewed & are unremarkable except as noted in HPI and below PMFSH Past Medical History Medical History Presence of stent in coronary artery in patient with coronary artery disease Hypertension Ulcerative colitis Surgical History Surgical History Hx of heart artery stent x3 H/O hysterectomy for benign disease Family History Family History Father Heart problem Social History Social History Smoking status: Former smoker Tobacco type: cigarettes Alcohol intake: current Alcohol use details: Very rarely Substance use: never Substance use type: does not use Living arrangements: alone Additional living arrangements comments: (with dog) Meds Home Medications and Allergies Home Medications ?Medication ?Instructions ?Recorded ?Confirmed ?Type amlodipine 5 mg tablet 5 mg PO DAILY #90 tabs 06/22/24 02/21/25 Rx atorvastatin 80 mg tablet 80 mg PO DAILY #90 tabs 06/22/24 03/01/25 Rx cyclobenzaprine 5 mg tablet 5 mg PO DAILY PRN muscle spasm #30 06/22/24 02/21/25 Rx tabs mecobalamin (vitamin B12) 1,000 1,000 mcg PO DAILY 06/22/24 03/01/25 History mcg lozenges aspirin 81 mg chewable tablet 81 mg PO DAILY 11/14/24 03/01/25 History (Aspirin Childrens) duloxetine 60 mg capsule,delayed 60 mg PO DAILY #90 ea 12/12/24 03/01/25 Rx release clopidogrel 75 mg tablet See Rx Instructions .Route 06/12/25 08/21/25 Rx .COMPLEX #90 tabs pantoprazole 40 mg tablet,delayed 40 mg PO QAM #30 tabs 01/04/25 03/01/25 Rx release lisinopril 40 mg tablet 40 mg PO DAILY #90 tabs 01/27/25 03/01/25 Rx alprazolam 0.5 mg tablet 0.5 mg PO DAILY PRN anxiety #30 02/06/25 03/01/25 Rx tabs carvedilol 25 mg tablet See Rx Instructions .Route 02/27/25 03/01/25 Rx .COMPLEX #180 tabs Allergies Allergy/AdvReac Type Severity Reaction Status Date / Time No Known Allergies Allergy Verified 03/01/25 08:59 Vital Signs Vital Signs - 24 hr 03/01/25 09:01 Temperature 97.4 F L Pulse Rate 76 Respiratory Rate 18 Blood Pressure 126/83 Pulse Oximetry 97 Oxygen Delivery Room Air Exam Const: General: cooperative and healthy appearing Resp: Effort & Inspection: normal respiratory effort and able to speak in complete sentences Auscultation: clear to auscultation bilaterally Cardio: Rate: regular rate Rhythm: regular rhythm GI: Inspection: normal to inspection GI Palp: No No hepatosplenomegaly present Auscultation: normal bowel sounds Rectal Exam: deferred Skin: General skin exam: normal color Psych: Appearance: grossly normal Mental Status: mental status grossly normal Assessment and Plan Assessment and plan (1) Diarrhea: Code(s): R19.7 - Diarrhea, unspecified Status: Acute Assessment and Plan: The patient is deemed a good candidate for the procedures. Consent signed. Will proceed.
--- NOTE | 2025-03-01 10:38 | S_PTH ---
PATIENT: Luz Whittaker LOC: [facility] U#:[id number] AGE/SX: 79/F ROOM: RE03/01/[address]: Erasto Ramos MD : 1945 BED: DIS: 03/01/2025 SPEC #: [id number] RECD: 03/01/25 11:42 STATUS: MG REQ #: [id number] RIZWANA: 03/01/25 10:[address]: Erasto Ramos DEPT: [facility] Surgical RECD BY: Vivien Dodd ENTERED: 03/01/25 11:42 SP TYPE: Surgical OTHR DR: Tamera Raza, Tissues: A - Gastric Biopsy B - Gastric Biopsy C - Colon Biopsy D - Colon Biopsy Procedures: Hematoxylin and Eosin Stain Gross and Microscopic Level 4
--- NOTE | 2025-03-01 10:40 | SUR.OPER ---
EGD: [id number] COLON: Start 1040
[2025-03-01 11:02] VITALS: BP 141/70; PULSE 79; RESP 19; O2SAT 100
[2025-03-01 11:12] VITALS: BP 148/76; PULSE 76; RESP 20; O2SAT 98
[2025-03-01 11:22] VITALS: BP 171/84; PULSE 74; RESP 20; O2SAT 99
== END 2025-03-01 11:46 | disposition home or self-care (01) ==
PROVIDERS: PCP Family Medicine; Referring Provider Nurse Practitioner; Visit Provider Internal Medicine Gastroenterology
PROC: 0DJ08ZZ Inspection of Upper Intestinal Tract, Via Natural or Artificial Opening Endoscopic (ICD-10-PCS; CPT 45378; principal; 2025-03-01 10:30)
DX: R93.3 Abnormal findings on diagnostic imaging of other parts of digestive tract (principal); K20.0 Eosinophilic esophagitis; K64.8 Other hemorrhoids; K57.30 Diverticulosis of large intestine without perforation or abscess without bleeding; K29.30 Chronic superficial gastritis without bleeding; K31.89 Other diseases of stomach and duodenum; I10 Essential (primary) hypertension; Z79.82 Long term (current) use of aspirin; Z79.02 Long term (current) use of antithrombotics/antiplatelets; Z98.890 Other specified postprocedural states; Z95.5 Presence of coronary angioplasty implant and graft; Z87.891 Personal history of nicotine dependence; Z87.19 Personal history of other diseases of the digestive system; Z82.49 Family history of ischemic heart disease and other diseases of the circulatory system
CPT/HCPCS: 43239; 45380; 88305; J2003; J2704; J7120

== ENCOUNTER 2025-05-30 09:07 | Outpatient (CLI) | payer MEDICARE, SELFPAY ==
[2025-05-30 10:10] LABS: Alanine Aminotransferase 31 U/L (6-35); Albumin Level 3.8 g/dL (3.5-5.1); Alkaline Phosphatase 68 U/L (38-126); Anion Gap 5 mmol/L (4-12); Aspartate Amino Transferase 30 U/L (14-36); Bilirubin,Total 0.7 mg/dL (0.2-1.3); Blood Urea Nitrogen 15 mg/dL (7-17); Calcium 8.7 mg/dL (8.4-10.2); Carbon Dioxide 28 mmol/L (22-30); Chloride 93 mmol/L (98-107); Cholesterol 156 mg/dL (0-200); Estimated Glomerular Filt Rate > 60; Glucose 83 mg/dL (65-110); HDL Direct 89 mg/dL; Potassium 4.0 mmol/L (3.4-5.0); Sodium 126 mmol/L (137-145); Total Protein 6.4 g/dL (6.3-8.2); Triglycerides 92 mg/dL (<150)
[2025-05-30 10:42] LABS: Thyroid Stimulating Hormone Reflex 1.590 uIU/mL (0.465-4.68)
[2025-05-30 11:04] LABS: Hemoglobin A1C 5.3 % (<5.7)
== END 2025-05-30 09:08 | disposition home or self-care (01) ==
PROVIDERS: PCP Family Medicine; Visit Provider Family Medicine
DX: R79.89 Other specified abnormal findings of blood chemistry (principal); Z13.1 Encounter for screening for diabetes mellitus; I10 Essential (primary) hypertension
CPT/HCPCS: 36415; 80053; 80061; 82043; 83036; 84443

== ENCOUNTER 2025-06-19 07:56 | Outpatient (CLI) | payer MEDICARE, SELFPAY ==
[2025-06-19 08:58] LABS: Anion Gap 3 mmol/L (4-12); Blood Urea Nitrogen 13 mg/dL (7-17); Calcium 9.0 mg/dL (8.4-10.2); Carbon Dioxide 28 mmol/L (22-30); Chloride 96 mmol/L (98-107); Estimated Glomerular Filt Rate > 60; Glucose 102 mg/dL (65-110); Potassium 4.0 mmol/L (3.4-5.0); Sodium 127 mmol/L (137-145)
== END 2025-06-19 07:57 | disposition home or self-care (01) ==
LOC: ANHLAB 07:58
PROVIDERS: PCP Family Medicine; Visit Provider Family Medicine
DX: E78.1 Pure hyperglyceridemia (principal)
CPT/HCPCS: 36415; 80048